=== PATIENT | female | born 1955 | race Caucasian/White ===

== ENCOUNTER 2022-11-03 13:44 | Outpatient (OUT) | payer MEDICARE, SELFPAY ==
--- NOTE | 2022-11-03 | XR_ITS ---
[address] [address] Patient Name: CHRISTIAN GARCIA MRN: [id number] date: 1955 Sex: F Assigned Patient Location: [facility] Current Patient Location: Accession/Order Number: [id number] Exam Date: 11/03/2022 14:28 Report Date: 11/04/2022 06:32 At the request of: AGUEDA PAGE Procedure: XR foot RT min 3V PROCEDURE: XR foot RT min 3V HISTORY: RIGHT FOOT PAIN COMPARISON: CT right foot 08/20/2022 FINDINGS: BONES:Marked degenerative changes of the tibiotalar joint. Prior mechanical fusion of the talocalcaneal and talonavicular joints. Fusion of talus and medial, middle, and lateral cuneiforms. Mild degenerative changes of the tarsal-metatarsal joints. Screw remnant within the talus. Mild loosening/backing out of the screw within the lateral talocuneiform plate. SOFT TISSUES:No visible soft tissue swelling. EFFUSION:None visible. OTHER: Negative. IMPRESSION: 1. Stable surgical changes and chronic degenerative changes. No appreciable acute abnormality. Electronically authenticated by: VIOLETA CHIU Date: 11/04/2022 06:32
== END 2022-11-03 13:45 | disposition home or self-care (01) ==
LOC: RAD 13:46
PROVIDERS: Visit Provider Podiatrist Foot & Ankle Surgery
DX: M79.671 Pain in right foot (principal); M19.071 Primary osteoarthritis, right ankle and foot; Z98.890 Other specified postprocedural states
CPT/HCPCS: 73630

== ENCOUNTER 2023-11-01 09:38 | Outpatient (OUT) | payer MEDICARE, OTHER, SELFPAY ==
--- NOTE | 2023-11-01 | XR_ITS ---
[address] [address] Patient Name: CHRISTIAN GARCIA MRN: [id number] date: 1955 Sex: F Assigned Patient Location: Current Patient Location: Accession/Order Number: [id number] Exam Date: 11/01/2023 09:45 Report Date: 11/02/2023 10:12 At the request of: AGUEDA PAGE Procedure: XR foot RT min 3V PROCEDURE: XR foot RT min 3V, XR ankle RT min 3V HISTORY: RIGHT FOOT PAIN COMPARISON: XR foot right 11/03/2022 FINDINGS: BONES:Mechanical fusion of the midfoot via plate and screws and bone joselito. Mechanical fusion of the talocalcaneal joints via lag screws. Marked joint space narrowing and subchondral sclerosis involving the tibiotalar joint. Mild degenerative changes involving the tarsal-metatarsal joints of the second through 5th digits. SOFT TISSUES:No visible soft tissue swelling. EFFUSION:None visible. OTHER: Negative. XR/XR foot RT min 3V IMPRESSION: 1. Stable surgical changes without evidence of hardware failure or change in alignment. 2. Grossly stable marked degenerative changes of the ankle joint. 3. Pes planus. Electronically authenticated by: VIOLETA CHIU Date: 11/02/2023 10:12
--- NOTE | 2023-11-01 | XR_ITS ---
[address] [address] Patient Name: CHRISTIAN GARCIA MRN: [id number] date: 1955 Sex: F Assigned Patient Location: Current Patient Location: Accession/Order Number: [id number] Exam Date: 11/01/2023 09:45 Report Date: 11/02/2023 10:12 At the request of: AGUEDA PAGE Procedure: XR ankle RT min 3V PROCEDURE: XR foot RT min 3V, XR ankle RT min 3V HISTORY: RIGHT FOOT PAIN COMPARISON: XR foot right 11/03/2022 FINDINGS: BONES:Mechanical fusion of the midfoot via plate and screws and bone joselito. Mechanical fusion of the talocalcaneal joints via lag screws. Marked joint space narrowing and subchondral sclerosis involving the tibiotalar joint. Mild degenerative changes involving the tarsal-metatarsal joints of the second through 5th digits. SOFT TISSUES:No visible soft tissue swelling. EFFUSION:None visible. OTHER: Negative. XR/XR ankle RT min 3V IMPRESSION: 1. Stable surgical changes without evidence of hardware failure or change in alignment. 2. Grossly stable marked degenerative changes of the ankle joint. 3. Pes planus. Electronically authenticated by: VIOLETA CHIU Date: 11/02/2023 10:12
== END 2023-11-01 09:39 | disposition home or self-care (01) ==
LOC: EC 09:39
PROVIDERS: Visit Provider Podiatrist Foot & Ankle Surgery
DX: M19.071 Primary osteoarthritis, right ankle and foot (principal); Z98.890 Other specified postprocedural states; M21.41 Flat foot [pes planus] (acquired), right foot
CPT/HCPCS: 73610; 73630

== ENCOUNTER 2024-10-05 07:44 | Outpatient (OUT) | payer MEDICARE, OTHER, SELFPAY ==
--- OUTSIDE RECORDS SUMMARY | 2023-11-01 05:45 | XMS_ITS ---
Author Organization The [facility] in [place] Address [address] [place] [address] Care Team Providers Care Blowing Weasand Name Role Phone Ronn Marquez DO Primary Care Provider Aftab Light Unavailable [phone] Allergies No Known Allergies Results Component Value Reference Range Notes XR Ankle RT (3 views) * (161 ) Reviewed date:01/26/2024 01:15:25 PM Interpretation: Performing Lab: Notes/Report: XR Foot RT (3 views) * Reviewed date:01/26/2024 01:15:53 PM Interpretation: Performing Lab: Notes/Report: Reason For Referral Reason Right Mellisa Brace Diagnosis 1 Primary osteoarthrit is, right ankle and foot (M19.071) Diagnosis 2 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) Referral Organization [facility] [place] (PODIATRY) Referring Provider First Name Aftab Referring Provider Last Name Greg Referring Provider Speciality Podiatry Referred Provider [facility], [facility] Referred Provider Specialty Other suppli er Referral Priority Routine REASON FOR VISIT R foot pain Medications Medication SIG (Take, Route, Frequency, Duration) Notes Start Date End Date Status Cyclobenzaprine HCl 10 MG Oral for 7 Days Not-Taking Meloxicam 15 MG TAKE 1 TABLET BY TIERA EVERY DAY NEEDED for pain with food Oral for 90 Days Active ZyrTEC Allergy 10 MG 1 capsule Orally On ce a day Active Singulair 10 MG 1 tablet Orally Once a day Active Social History Tobacco Use: Social History Observation Description Date Details (start date - stop date) Never Smoker NA - NA Tobacco Use/Smoking Question Answer Notes Patient is a nonsmoker Vital Signs Weight 142 lbs 11/01/2023 Height 70 in 11/01/2023 Temperature 97.2 degrees Fahrenheit 11/01/19 24 Heart Rate 76 /min 11/01/2023 BMI 20.37 kg/m2 11/01/2023 Encounters Encounter Location Date Provider Diagnosis [facility] (PODIATRY) [address] [place] [address] [place] [address] 11/01/2023 Aftab Garza Primary osteoarthritis, right ankle and foot M19.071 ; Idiopathic aseptic necrosis of right ankle M87.071 and Other specified disorders of bone, unspecified site M89.8X9 Assessments Encounter Date Diagnosis (ICD Code) Assessment Notes Treatment Notes Treatment Clinical Notes Section Notes 11/01/2023 Primary osteoarthritis, right ankle and foot (ICD-10 - M19.071) The patient is a pleasant 68-year-old female who presents for reevaluation of persistent right ankle pain.The patient underwent triple fusion in 2012 and has developed increasing right ankle pain in recent years. Imaging is consistent with avascular necrosis and collapse of the talus with subsequent severe tibiotalar arthritis.She has tried gtzr-uhb-itemkiw bracing which provided limited relief in symptoms.She takes meloxicam regularly and states it does provide some relief.We had discussed ankle fusion previously, however the patient would like to hold off on surgery for now.I recommend custom bracing to provide pain relief.The patient should continue meloxicam and may take Tylenol additionally. RICE therapy encouraged.Follo w-up with Dr. Garza in 3 to 4 months, sooner if any issues arise. No additional x-rays are necessary at that time. I recommend a custom Mellisa brace for the right ankle.Diagnosis: Right ankle arthritis, right talus avascular necrosisThe brace will limit range of motion, therefore providing pain relief.Duration of need: Lifetime 11/01/2023 Idiopathic aseptic necrosis of right ankle (ICD-10 - M87.071) 11/01/2023 Other specified disorders of bone, unspecified site (ICD-10 - M89.8X9) Plan Of Treatment Treatment Notes Assessment Notes Primary osteoarthritis, righ t ankle and foot The patient is a pleasant 68-year-old female who presents for reevaluation of persistent right ankle pain.The patient underwent triple fusion in 2012 and has developed increasing right ankle pain in recent years. Imaging is consistent with avascular necrosis and collapse of the talus with subsequent severe tibiotalar arthritis.She has tried lgdp-ury-tedllqm bracing which provided limited relief in symptoms.She takes meloxicam regularly and states it does provide some relief.We had discussed ankle fusion previously, however the patient would like to hold off on surgery for now.I recommend custom bracing to provide pain relief.The patient should continue meloxicam and may take Tylenol additionally. RICE therapy encouraged.Follow-up with Dr. Garza in 3 to 4 months, sooner if any issues arise. No additional x-rays are necessary at that time. I recommend a custom Mellisa brace for the right ankle.Diagnosis: Right ankle arthritis, right talus avascular necrosisThe brace will limit range of motion, therefore providing pain relief.Duration of need: Lifetime Referrals Referral Date Details 11/02/2023 11/02/2023, [facility] [employer] [facility] Progress Notes * JOSECamilaDOB:1955 (68 yo F)Acc No.[id number]:11/01/2023 Follow Up Patient: Camila SAEZ Provider: Omar Garza DPM, MS :1955 A ge:68 Y S ex:Female Date:11/01/2023 Address:[address] [place], [place] [id number] Pcp:Ronn Marquez, DO Check In:09:34 AM ESTCheck O ut:10:22 AM EST Subjective: * Chief Complaints: * R foot pain * HPI: G eneral: Patient has history of right ankle surgery. Was last seen last October. Pain is different and is in different places depending on the day. Has burning, throbbing pain, does worsen at night to where she uses biofreeze or wrap with ice wrap. Doesn't matter if getting up in am or up on feet all day. Taking meloxicam daily at lunchtime to help. States feels better while in motion. * ROS: G eneral/Constitutional: Chills d enies. F ever d enies. W eight gain?denies. W eight loss d enies. S kin: Skin Ulcers d enies. S kin lesion(s) d enies. ? C ardiovascular: Difficulty breathing on exertion d enies. L eg cramps?denies. E nate d enies. C hest pain d enies. R espiratory: Difficulty breathing d enies. D yspnea d enies.?Cough d enies. G astrointestinal: Diarrhea d enies. N ausea d enies. V omiting?denies. M usculoskeletal: Bone/Joint Symptoms d enies. C half-way Pain d enies.?Leg cramps d enies. N eurologic: Numbness d enies. T ingling d enies . G ait abnormality d enies. ? H ematology: Anemia D enies. E asy bruising d enies. ? A ll Other Systems: Review of Systems (ROS) S ee HPI for details,All others negative except those mentioned in HPI. 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 * Social History: T obacco Use: T obacco Use/Smoking P atient is a n onsmoker * Medications: T akingMeloxicam 15 MG Tablet TAKE 1 TABLET BY MOUTH EVERY DAY NEEDED for pain with food Oral Singulair(Montelukast Sodium) 10 MG Tablet 1 tablet Orally Once a day ZyrTEC Allergy(Cetirizine HCl) 10 MG Capsule 1 capsule Orally Once a day Taking Meloxicam 15 MG Tablet TAKE 1 TABLET BY MOUTH EVERY DAY NEEDED for pain with food Oral Taking Singulair(Montelukast Sodium) 10 MG Tablet 1 tablet Orally Once a day Taking ZyrTEC Allergy(Cetirizine HCl) 10 MG Capsule 1 capsule Orally Once a day Not-Taking/PRNCyclobenzaprine HCl 10 MG Tablet Oral Medication List reviewed and reconciled with the patientNot-Taking/PRN Cyclobenzaprine HCl 10 MG Tablet Oral Medication List reviewed and reconciled with the patient * Allergies: N .K.D.A.no[Allergies Verified] Objective: * Vitals: W t:142lbs, Ht: 70 in, Temp:97.2F, HR:76/min, BMI:20.37Index, Pain scale:61-10, Ht-cm: 177.8 cm, Wt-k.41 kg. * Examination: P odiatry Examination: SKIN: s kin intact, n o sign of infection. MUSCULOSKELETAL: F oot and ankle are rectus in stance Pain on palpation anterior ankle and sinus tarsi No ROM from the hindfoot Less than 5 degrees ROM from the ankle with crepitus throughout ROM Painful bony prominence plantar foot at the cuboid.? NEUROLOGICAL: L ight touch sensation is intact in all nerve distributions, Negative Tinel sign. VASCULAR: P alpable pedal pulses, No swelling, No calf pain on squeeze. A t theX-ray right foot and ankle obtained in the office today and reviewed: Previous triple fusion. Hardware appears stable. Collapse of the talar dome with severe arthritic changes noted to the tibiotalar joint, consistent with avascular necrosis of the talus. Assessment: * Assessment: 1. P rimary osteoarthritis, right ankle and foot - M19.071 (Primary) 2 . I diopathic aseptic necrosis of right ankle - M87.071 3 . O ther specified disorders of bone, unspecified site - M89.8X9 Plan: * Treatment: 2. I diopathic aseptic necrosis of right ankle Referral To:[facility] Other supplier Reason:Right Mellisa Brace * Procedure Codes: * * Sign off status: Completed Visit Status: C HK (Check Out) true * Provider: Omar Garza DPM, MS Date: 11/01/2023 Generated for Marely farah/Chema/Patriciaitting on: 10/05/2024 07:49 AM EDT History and Physical Notes * HPI (History of Present Illness) Category Sub-Category Detail Notes Category Not es General Patient has his tory of right ankle surgery. Was last seen last October. Pain is different and is in different places depending on the day. Has burning, throbbing pain, does worsen at night to where she uses biofreeze or wrap with ice wrap. Doesn't matter if getting up in am or up on feet all day. Taking meloxicam daily at lunchtime to help. States feels better while in motion. Examination Category Sub-Category Detail Notes Category Not es Podiatry Examination SKIN: skin intact, no sign of infection At theX-ray right foot and ankle obtained in the office today and reviewed: Previous triple fusion. Hardware appears stable. Collapse of the talar dome with severe arthritic changes noted to the tibiotalar joint, consistent with avascular necrosis of the talus MUSCULOSKELETAL: Foot and ankle are r ectus in stance Pain on palpation anterior ankle and sinus tarsi No ROM from the hindfoot Less than 5 degrees ROM from the ankle with crepitus throughout ROM Painful bony prominence plantar foot at the cuboid NEUROLOGICAL: Light touch sensatio n is intact in all nerve distributions, Negative Tinel sign VASCULAR: Palpable pedal pulse s, No swelling, No calf pain on squeeze Consultation Request Notes Referral Date Referring Provider Referred Provider Not es 11/02/2023 Aftab Garza [facility]
--- OUTSIDE RECORDS SUMMARY | 2024-03-14 04:15 | XMS_ITS ---
Author Organization [facility] in [place] Address [address] [place] [address] Care Team Providers Care Truck Dispatcher Name Role Phone Ronn Marquez DO Primary Care Provider Aftab Light [phone] REASON FOR VISIT 4 month f/u Medications Medication SIG (Take, Route, Frequency, Duration) Notes Start Date End Date Status Cyclobenzaprine HCl 10 MG Oral for 7 Days Unknown Meloxicam 15 MG 1 tablet Orally Once a day for 90 days 03/14/2024 Active Meloxicam 15 MG TAKE 1 TABLET BY TIERA TH EVERY DAY NEEDED for pain with food Oral for 90 Days Active Singulair 10 MG 1 tablet Orally Once a day Active ZyrTEC Allergy 10 MG 1 capsule Orally On ce a day Active Social History Tobacco Use: Social History Observation Description Date Details (start date - stop date) Never Smoker NA - NA Tobacco Use/Smoking Question Answer Notes Patient is a nonsmoker Vital Signs Height 70 in 03/14/2024 Temperature 97.0 degrees Fahrenheit 03/14/20 24 Heart Rate 89 /min 03/14/2024 Oximetry 99 % 03/14/2024 Encounters Encounter Location Date Provider Diagnosis [facility] (PODIATRY) [address] [place] [address] [place] [address] 03/14/2024 Aftab Garza Idiopathic aseptic necrosis of right ankle M87.071 ; Other specified disorders of bone, unspecified site M89.8X9 and Pain due to internal orthopedic prosthetic devices, implants and grafts, initial encounter T84.84XA Assessments Encounter Date Diagnosis (ICD Code) Assessment Notes Treatment Notes Treatment Clinical Notes Section Notes 03/14/2024 Idiopathic aseptic necrosis of right ankle (ICD-10 - M87.071) Patient seen and evaluated. Patient education provided. 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 She requested a refill of meloxicam which was provided today and she related that her primary care physician and is aware of her being on this medication. I believe that it is likely that some days she may require surgical intervention but given that she is doing well currently I recommend to continue nonsurgical care and she will follow-up in 3 months with weightbearing ankle x-rays 03/14/2024 Other specified disorders of bone, unspecified site (ICD-10 - M89.8X9) 03/14/2024 Pain due to internal orthopedic prosthetic devices, implants and grafts, initial encounter (ICD-10 - T84.84XA) Plan Of Treatment Medication Medication Name Sig Start Date Stop Date Notes Meloxicam 15 MG 1 tablet Orally Once a day for 90 days Treatment Notes Assessment Notes Idiopathic aseptic necrosis of right ankle Patient seen and evaluated. Patient education provided. 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 She requested a refill of meloxicam which was provided today and she related that her primary care physician and is aware of her being on this medication. I believe that it is likely that some days she may require surgical intervention but given that she is doing well currently I recommend to continue nonsurgical care and she will follow-up in 3 months with weightbearing ankle x-rays Progress Notes * Camila BREENDOB:1955 (68 yo F)Acc No.[id number]:03/14/2024 Follow Up Patient: oJyce MARIE Camila Provider: Omar Garza DPM, MS :1955 A ge:68 Y S ex:Female Date:03/14/2024 Address:[address] [place] [address], [id number] Pcp:Ronn Marquez, DO Check In:08:08 AM ESTCheck O ut:08:38 AM EST Subjective: * Chief Complaints: * 4 month f/u * HPI: G eneral: Patient returns to office today for 4 month f/u. Patient is doing very well with no pain today, just stiffness to the right ankle. She is currently wearing an ASO brace which she states help stabalize her ankle. She is wearing a night splint during her sleep, which she states has helped alleviate stiffness in the morning. Overall she is happy with her progress. She states she would like a refill on her meloxicam. 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 * Examination: P odiatry Examination: SKIN: s kin intact, n o sign of infection. MUSCULOSKELETAL: L ess than 10 degrees range of motion from the ankle joint and no range of motion from the subtalar joint. No pain on palpation negative anterior drawer. NEUROLOGICAL: l ight touch sensation intact, n egative tinel's sign. VASCULAR: P edal pulses palpable, C apillaryrefill is brisk to toe. Assessment: * Assessment: 1. 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 O ther specified disorders of bone, unspecified site - M89.8X9 3 . P ain due to internal orthopedic prosthetic devices, implants and grafts, initial encounter - T84.84XA ? Plan: * Treatment: * Procedure Codes: * * Sign off status: Completed Visit Status: C HK (Check Out) true * Provider: Omar Garza DPM, MS Date: 05/14/2023 Generated for Marely farah/Chema/Marksmitting on: 0 10/05/2024 07:48 AM EDT History and Physical Notes * HPI (History of Present Illness) Category Sub-Category Detail Notes Category Not es General Patient returns to office today for 4 month f/u. Patient is doing very well with no pain today, just stiffness to the right ankle. She is currently wearing an ASO brace which she states help stabalize her ankle. She is wearing a night splint during her sleep, which she states has helped alleviate stiffness in the morning. Overall she is happy with her progress. She states she would like a refill on her meloxicam. Examination Category Sub-Category Detail Notes Category Not es Podiatry Examination SKIN: skin intact, no sign of infection MUSCULOSKELETAL: Less than 10 degrees range of motion from the ankle joint and no range of motion from the subtalar joint. No pain on palpation negative anterior drawer NEUROLOGICAL: light touch sensatio n intact, negative tinel's sign VASCULAR: Pedal pulses palpable, Capillary refill is brisk to toe
--- OUTSIDE RECORDS SUMMARY | 2024-10-05 07:49 | XMS_ITS | Patient Health Record ---
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 Name Role Phone Ronn Marquez DO Primary Care Provider Agueda Light [phone] Allergies No Known Allergies Results Component Value Reference Range Notes XR Ankle RT (3 views) * (161 ) Reviewed date:01/26/2024 01:15:25 PM Interpretation: Performing Lab: Notes/Report: XR Foot RT (3 views) * Reviewed date:01/26/2024 01:15:53 PM Interpretation: Performing Lab: Notes/Report: XR foot RT min 3V (Not yet r eviewed by provider) Interpretation: Performing Lab: Notes/Report: Source Facility: [place] [address] XRay Report Signed Patient: Camila Breen MR#: [id number] : 1955 Acct:[id number] Age/Sex: 68 / F ADM Date: 11/01/23 Loc: EC Attending Dr: Agueda Garza D.P.M. Ordering Physician: Agueda Garza D.P.M. Date of Service: 11/01/23 Procedure(s): XR foot RT min 3V Accession Number(s): [id number] cc: Agueda Garza D.P.M.; Physician,Non-Staff [place] [address] Patient Name: CAMILA BREEN MRN: [id number]:[id number] date: 1955 Sex: F Assigned Patient Location: Current Patient Location: Accession/Order Number: [id number] Exam Date: 11/01/2023 09:45 Report Date: 11/02/2023 10:12 At the request of: AGUEDA GARZA Procedure: XR foot RT min 3V PROCEDURE: XR foot RT min 3V, XR ankle RT min 3V HISTORY: RIGHT FOOT PAIN COMPARISON: XR foot right 11/03/2022 FINDINGS: BONES:Mechanical fusion of the midfoot via plate and screws and bone joselito. Mechanical fusion of the talocalcaneal joints via lag screws. Marked joint space narrowing and subchondral sclerosis involving the tibiotalar joint. Mild degenerative changes involving the tarsal-metatarsal joints of the second through 5th digits. SOFT TISSUES:No visible soft tissue swelling. EFFUSION:None visible. OTHER: Negative. XR/XR foot RT min 3V IMPRESSION: 1. Stable surgical changes without evidence of hardware failure or change in alignment. 2. Grossly stable marked degenerative changes of the ankle joint. 3. Pes planus. Electronically authenticated by: CAMPOS MARY Date: 11/02/2023 10:12 Dictated By: Campos Mary M.D. Signed By: 11/02/23 1014 DD/ 1012 TD/TT: Return To Vendor: [place] [address] XRay Report Signed Patient: Nicky Breen sa MR#: [id number] : 1955 Acct:[id number] Age/Sex: 68 / F ADM Date: 11/01/23 Loc: EC Attending Dr: Agueda Garza D.P.M. Ordering Physician: Agueda Garza D.P.M. Date of Service: 11/01/23 Procedure(s): XR foot RT min 3V Accession Number(s): [id number] cc: Agueda Garza D.P.M.; Physician,Non-Staff [place] [id number] Patient Name: CAMILA BREEN MRN: [id number]:[id number] date: 1955 Sex: F Assigned Patient Location: Current Patient Location: Accession/Order Numb er: [id number] Exam Date: 11/01/2023 09:45 Report Date: 11/02/2023 10:12 At the request of: AGUEDA GARZA Procedure: XR foot RT min 3V PROCEDURE: XR foot R T min 3V, XR ankle RT min 3V HISTORY: RIGHT FOOT PAIN COMPARISON: XR foot right 11/03/2022 FINDINGS: BONES:Mechanical fus ion of the midfoot via plate and screws and bone joselito. Mechanical fusion of the talocalcaneal joints via lag screws. Marked joint space narrowing and subchondral sclerosis involving the tibiotalar joint. Mild degenerative changes involving the tarsal-metatarsal joints of the second through 5th digits. SOFT TISSUES:No visi ble soft tissue swelling. EFFUSION:None visible. OTHER: Negative. X R/XR foot RT min 3V IMPRESSION: 1. Stable surgical c hanges without evidence of hardware failure or change in alignment. 2. Grossly stable ma rked degenerative changes of the ankle joint. 3. Pes planus. Electronically authe nticated by: CAMPOS MARY Date: 11/02/2023 10:12 Dictated By: Campos Mary M.D. Signed By: 11/02/23 1014 DD/ 1012 TD/TT: Return To Vendor: XR ankle RT min 3V (Not yet reviewed by provider) Interpretation: Performing Lab: Notes/Report: Source Facility: [place] [address] [place] [address] XRay Report Signed Patient: Camila Breen MR#: [id number] : 1955 Acct:[id number] Age/Sex: 68 / F ADM Date: 11/01/23 Loc: EC Attending Dr: Agueda Graza D.P.M. Ordering Physician: Agueda Garza D.P.M. Date of Service: 11/01/23 Procedure(s): XR ankle RT min 3V Accession Number(s): [id number] cc: Agueda Garza D.P.M.; Physician,Non-Staff Jaya [address] [address] Patient Name: CAMILA BREEN MRN: [facility]:[id number] date: 1955 Sex: F Assigned Patient Location: Current Patient Location: Accession/Order Number: [id number] Exam Date: 11/01/2023 09:45 Report Date: 11/02/2023 10:12 At the request of: AGUEDA GARZA Procedure: XR ankle RT min 3V PROCEDURE: XR foot RT min 3V, XR ankle RT min 3V HISTORY: RIGHT FOOT PAIN COMPARISON: XR foot right 11/03/2022 FINDINGS: BONES:Mechanical fusion of the midfoot via plate and screws and bone joselito. Mechanical fusion of the talocalcaneal joints via lag screws. Marked joint space narrowing and subchondral sclerosis involving the tibiotalar joint. Mild degenerative changes involving the tarsal-metatarsal joints of the second through 5th digits. SOFT TISSUES:No visible soft tissue swelling. EFFUSION:None visible. OTHER: Negative. XR/XR ankle RT min 3V IMPRESSION: 1. Stable surgical changes without evidence of hardware failure or change in alignment. 2. Grossly stable marked degenerative changes of the ankle joint. 3. Pes planus. Electronically authenticated by: CAMPOS MARY Date: 11/02/2023 10:12 Dictated By: Campos Mary M.D. Signed By: 11/02/23 1014 DD/ 1012 TD/TT: Return To Vendor: [place] [address] XRay Report Signed Patient: Nicky Breen sa MR#: [id number] : 1955 Acct:[id number] Age/Sex: 68 / F ADM Date: 11/01/23 Loc: EC Attending Dr: Agueda Garza D.P.M. Ordering Physician: Agueda Garza D.P.M. Date of Service: 11/01/23 Procedure(s): XR ankle RT min 3V Accession Number(s): [id number] cc: Agueda Garza D.P.M.; Physician,Non-Staff M.D. The [address] [address] Patient Name: CAMILA BREEN MRN: [facility]:[id number] date: 1955 Sex: F Assigned Patient Location: Current Patient Location: Accession/Order Numb er: [id number] Exam Date: 11/01/2023 09:45 Report Date: 11/02/2023 10:12 At the request of: AGUEDA GARZA Procedure: XR ankle RT min 3V PROCEDURE: XR foot R T min 3V, XR ankle RT min 3V HISTORY: RIGHT FOOT PAIN COMPARISON: XR foot right 11/03/2022 FINDINGS: BONES:Mechanical fus ion of the midfoot via plate and screws and bone joselito. Mechanical fusion of the talocalcaneal joints via lag screws. Marked joint space narrowing and subchondral sclerosis involving the tibiotalar joint. Mild degenerative changes involving the tarsal-metatarsal joints of the second through 5th digits. SOFT TISSUES:No visi ble soft tissue swelling. EFFUSION:None visible. OTHER: Negative. X R/XR ankle RT min 3V IMPRESSION: 1. Stable surgical c hanges without evidence of hardware failure or change in alignment. 2. Grossly stable ma rked degenerative changes of the ankle joint. 3. Pes planus. Electronically authe nticated by: CAMPOS MARY Date: 11/02/2023 10:12 Dictated By: Campos Mary M.D. 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 Vital Signs Heart Rate 89 /min 03/14/2024 Temperature 97.0 degrees Fahrenheit 03/14/2024 Oximetry 99 % 03/14/2024 Height 70 in 03/14/2024 Weight 142 lbs 11/01/2023 BMI 20.37 kg/m2 11/01/2023 Encounters Encounter Location Date Provider Diagnosis [facility] ([facility]) [address] [place] [address] [place] [address] 11/01/2023 Agueda Garza Primary osteoarthritis, right ankle and foot M19.071 ; Idiopathic aseptic necrosis of right ankle M87.071 and Other specified disorders of bone, unspecified site M89.8X9 [facility] ([facility]) [address] [place] [address] [place] [address] 03/14/2024 Agueda Garza Idiopathic aseptic necrosis of right ankle [...] with subsequent severe tibiotalar arthritis.She has tried qsvj-rgk-[id number] bracing which provided limited relief in symptoms.She takes meloxicam regularly and states it does provide some relief.We had discussed ankle fusion previously, however the patient would like to hold off on surgery for now.I recommend custom bracing to provide pain relief.The patient should continue meloxicam and may take Tylenol additionally. RICE therapy encouraged.Follow -up with Dr. Garza in 3 to 4 months, sooner if any issues arise. No additional x-rays are necessary at that time. I recommend a custom Mellisa brace for the right ankle.Diagnosis: Right ankle arthritis, right talus avascular necrosisThe brace will limit range of motion, therefore providing pain relief.Duration of need: Lifetime 11/01/2023 Idiopathic aseptic necrosis of right ankle (ICD-10 - M87.071) 03/14/2024 Idiopathic aseptic necrosis of right ankle [...] and grafts, initial encounter (ICD-10 - T84.84XA) 11/01/2023 Other specified disorders of bone, unspecified site (ICD-10 - M89.8X9) Plan Of Treatment Pending Test Test Name Order Date XR ankle RT min 3V 11/02/2023 XR foot RT min 3V 11/02/2023 Insurance Providers Payer Name Payer Address Payer Phone Subscriber Number Group Number Insured Name Patient Relationship to Insured Coverage Start Date Coverage End Date MEDICARE RAILROAD [address] [address] [employer] [id number] [phone] [id number] Camila Breen Self - patient is the insured 0 [employer] [place] [address] [employer] [facility] 8 MEDICARE SUPP CLMS DEPT [place] [employer] [phone] [id number] Camila Breen Self - patient is the insured 4 Medical (General) History Medical History History ICD Code Cutaneous symptom of rheumatic disease M 79.0 Exostosis of bone of ankle M89.8X7 Pain due to internal orthopedic prosthet ic device, initial encounter T84.84XA Acute ankle pain, right M25.571 Abnormal movement in bone M89.9 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
--- OUTSIDE RECORDS SUMMARY | 2024-10-05 07:50 | XMS_ITS | CCD ---
Author Organization [facility] Care Team Providers Care Donor Recruiter Name Role Phone WILIAM JONES Referring Unavailable RONN MARQUEZ Primary Care Unavailable WILIAM JONES Referring Unavailable RONN MARQUEZ Primary Care Unavailable WILIAM JONES Referring Unavailable RONN MARQUEZ Primary Care Unavailable WILIAM JONES Referring Unavailable RONN MARQUEZ Primary Care Unavailable WILIAM JONES Referring Unavailable RONN MARQUEZ Primary Care Unavailable AGUEDA PAGE Admitting Unavailable AGUEDA PAGE Attending Unavailable JESSICA ULRICH V Consulting Unavailable AGUEDA PAGE Consulting Unavailable Ronn Marquez DO Primary Care Provider Angelique Bowman Unavailable DO Ronn Marquez Primary Care Provider DO Derrick Kenny Attending Provider RONN MARQUEZ Primary Care Physician [phone] Sarah Rivera Unavailable Unavailable DO Ronn Marquez Primary Care Provider [phone] DO Derrick Kenny Attending Provider [phone] Efrain Munguia Primary Care Physician Link, Efrain Scott Attending Unavailable Link, Efrain Scott Attending Unavailable Link, Efrain Scott Attending Unavailable Link, Efrain Scott Attending Unavailable Link, Efrain Scott Admitting Unavailable Link, Efrain Scott Attending Unavailable Ronn Marquez DO Unavailable Efrain Munguia MD Primary Care Provider Snuday Bhakta Attending Unavailable Bhakta, Sunday Latif Referring Unavailable Bhakta, Sunday Latif Admitting Unavailable Link, Efrain Scott Admitting Unavailable Link, Efrain Scott Attending Unavailable Bhakta, Sunday T Referring Unavailable Bhakta, Sunday T Admitting Unavailable Bhakta, Sunday T Attending Unavailable Bhakta, Sunday T Attending Unavailable Bhakta, Sunday T Referring Unavailable Bhakta, Sunday T Admitting Unavailable Bhakta, Sunday T Admitting Unavailable Bhakta, Sunday T Attending Unavailable Bhakta, Sunday T Referring Unavailable Ronn Marquez DO Unavailable DO Efrain Munguia Attending Unavailable Ronn Marquez DO Primary Care Provider Zoya LATIF, Derrick Attending Provider Zoya, Derrick Attending Unavailable Ronn Marquez Primary Care Unavailable Visci, Derrick Admitting Unavailable Alma, Ronn Primary Care Unavailable Visci, Derrick Admitting Unavailable Visci, Derrick Attending Unavailable PLEASNICKABIGAIL Attending Unavailab le BHAKTA, SUNDAY T Referring Unavailable MEDVES, RONNA Jones Attending Unavailable BHAKTA, SUNDAY T Referring Unavailable HISEY, KVNG Attending Unavailable BHAKTA, SUNDAY T Referring Unavailable HISEY, KVNG Attending Unavailable BHAKTA, SUNDAY T Referring Unavailable MEDVES, RONNA Jones Attending Unavailable BHAKTA, SUNDAY T Referring Unavailable BHAKTA, SUNDAY T Referring Unavailable BHAKTA, SUNDAY Latif Attending Unavailable HISEY, KVNG Attending Unavailable BHAKTA, SUNDAY T Referring Unavailable HISEY, KVNG Attending Unavailable BHAKTA, SUNDAY T Referring Unavailable EDOUARDSHAHID Attending Unavailable BHAKTA, SUNDAY T Referring Unavailable HISEY, KVNG Attending Unavailable BHAKTA, SUNDAY T Referring Unavailable MEDVES, RONNA Jones Attending Unavailable BHAKTA, SUNDAY T Referring Unavailable HISEY, KVNG Attending Unavailable BHAKTA, SUNDAY T Referring Unavailable HISEY, KVNG Attending Unavailable BHAKTA, SUNDAY T Referring Unavailable BHAKTA, SUNDAY T Referring Unavailable BHAKTA, SUNDAY T Attending Unavailable BHAKTA, SUNDAY T Referring Unavailable BHAKTA, SUNDAY T Referring Unavailable BHAKTA, SUNDAY Latif Attending Unavailable BHAKTA, SUNDAY Latif Attending Unavailable HISEY, KVNG Attending Unavailable BHAKTA, SUNDAY T Referring Unavailable HISEY, KVNG Attending Unavailable BHAKTA, SUNDAY T Referring Unavailable MEDVES, RONNA Jones Attending Unavailable BHAKTA, SUNDAY T Referring Unavailable Allergies Allergy Classification Reported Allergen(s) Allergy Type Date of Onset Reaction(s) Facility (20 sources) House dust mite Allergy to substance 07-01-2023 [facility] (20 sources) Pollen Allergy to substance 07-01-2023 [facility] Medications Current Medications Medication Drug Class(es) Dates Sig (Normalized) Sig (Original) acetaminophen 325 mg / oxyCODONE hydrochloride 5 mg oral tablet (2 sources) Opioid Agonist Start: 06-04-2024 End: 06-11-2024 take 1-2 tablets by mouth every four hours as needed for pain Percocet 5 mg-325 mg oral tablet See Instructions, 50 tab(s), Refill(s) 0, other reason (Rx), Take one to two oral every 4 hours as needed for surgical pain. Start Date: 06/06/24 Status: Ordered [id number] 200 actuat albuterol 0.09 mg/actuat metered dose inhaler (2 sources) beta2-Adrenergic Agonist Start: 01-04-2024 take 2 puff(s) by inhalation every six hours as needed Albuterol Sulfate 90 mcg/actuation HFA aerosol inhaler Active 2 PUFF INHALATION Every 6 hours January 04, 2024 12:00am [employer] puffs as needed Inhalation every 6 hrs; Note: Source Status: Taking; Provider: Gracie Merino ( ) take 2 puff(s) by in halation every six hours as needed ProAir HFA 108 (90 Base) MCG/ACT 2 puffs as needed Inhalation every 6 hrs Active amoxicillin 875 mg / clavulanate 125 mg oral tablet (1 source) Penicillin-class Antibacterial Start: 02-01-2023 take 1 tablet by mouth every twelve hours Amoxicillin-Pot Clavulanate 875-125 MG 1 tablet Orally every 12 hrs for 14 days Jan, Active aspirin 325 mg oral tablet (6 sources) Platelet Aggregation Inhibitor, Nonsteroidal Anti-inflammatory Drug Start: 06-04-2024 End: 07-06-2024 take 1 tablet by mouth once daily aspirin 325 MG EC tablet Indications: Primary osteoarthritis of left hip Take 1 tablet (325 mg) by mouth Daily Start Day after Surgery 30 tablet 06/04/2024 07/04/2024 Active ASPIRIN 81 PO Ta ke by mouth 0 Active Biotin (3 sources) Biotin Active Biotin 3 MG TABS Take by mouth 0 Active calcium carbonate 1500 mg oral tablet (2 sources) take 1 tablet by mouth every twelve hours Calcium 600 MG 1 tablet with meals Orally Twice a day Active Calcium Carbonate-Vit D-Min (CALCIUM 1200 PO) (20 sources) Calcium Carbonate-Vit D-Min (CALCIUM 1200 PO) Calcium Active cetirizine hydrochloride 10 mg oral tablet (4 sources) Histamine-1 Receptor Antagonist Start: take 1 tablet by mouth once daily Cetirizine 10 mg tablet Active 1 TAB PO Daily January 04, 2024 12:00am [employer] tablet Orally Once a day; Note: Source Status: Taking; Provider: Gracie Merino ( ) take 1 tablet by jim th every twenty-four hours Cetirizine HCl 10 MG 1 tablet Orally Onc e a day Active Cetirizine HCl 1 0 MG CAPS Take by mouth 0 Active cholecalciferol 0.125 mg oral tablet (20 sources) Vitamin D take 1 tablet by mouth once daily cholecalciferol (Vitamin D-3) 125 MCG (5000 UT) tablet Take 5,000 Units by mouth Daily Active cyclobenzaprine hydrochloride 10 mg oral tablet (20 sources) Muscle Relaxant Start: 024 take 1 tablet by mouth three times daily as needed for muscle spasms cyclobenzaprine (Flexeril) 10 MG tablet See Instructions, TAKE 1 TABLET BY MOUTH THREE TIMES DAILY NEEDED for spasm, # 30 tab(s), Refills(s) 1, Pharmacy: [id number], 178, cm, 12/22/23 7:08:00 EDT, Height/Length Dosing, 64.6, kg, 12/22/23 7:08:00 EDT, Weight Dosing 11/24/2023 Active docusate sodium 100 mg oral capsule (2 sources) Start: 025 End: 025 take 1 capsule by mouth twice daily Colace 100 mg Cap 100 mg = 1 cap(s), Oral, BID, # 20 cap(s), Refills(s) 0, other reason (Rx) Start Date: 06/06/24 Status: Ordered glucosamine 500 mg oral tablet (2 sources) take 1 capsule by mouth three times daily Glucosamine 500 MG 1 capsule with a meal Orally Three times a day Active ibuprofen 600 mg oral tablet (2 sources) Nonsteroidal Anti-inflammatory Drug Start: 025 take 600 mg by mouth twice daily ibuprofen 600 mg, Oral, BID, Refills(s) 0, Pain Start Date: 05/25/24 Status: Ordered loratadine 10 mg oral tablet (20 sources) Start: 012 take 1 tablet by mouth once daily loratadine 10 mg Tab 10 mg = 1 tab(s), Oral, Daily, tab(s), Refills(s) 0 Start Date: 05/16/11 Status: Ordered take 1 tablet by mouth once mario y loratadine (Claritin Reditabs) 10 MG disintegrating tablet Take 10 mg by mouth Daily Active Magnesium (20 sources) Magnesium 400 MG capsule Take by mouth Active take 1 tablet by mouth once mario y Magnesium 500 MG 1 tablet with a meal Orally Once a day Active Magnesium 400 MG CAPS Take by mouth 0 Active meloxicam 15 mg oral tablet (20 sources) Nonsteroidal Anti-inflammatory Drug Start: 10-27-2023 meloxicam (Mobic) 15 MG tablet Take 15 mg by mouth 10/27/2023 Active mometasone furoate 0.05 mg/actuat metered dose nasal spray (20 sources) Corticosteroid Start: 01-04-2024 take 2 spray(s) nasal route once daily Mometasone (Nasonex 24hr Allergy) 50 mcg/actuation spray,non-aeroso l Active 2 SPRAY INTRANASAL Daily January 04, 2024 12:00am [employer] sprays in each nostril Nasally Once a day; Note: Source Status: Taking; Refills: 3; Provider: Gracie Jones Start: 04-11-2023 take 2 spray(s) nasa l route once daily mometasone (Nasonex) 50 MCG/ACT nasal spray Administer 2 sprays into each nostril Daily 04/11/2023 Active Mometasone Furoa te (NASONEX NA) by Nasal route 0 Active montelukast 10 mg oral tablet (20 sources) Leukotriene Receptor Antagonist Start: 06-16-2023 End: 04-22-2025 take 1 tablet by mouth once daily montelukast (Singulair) 10 MG tablet Indications: Asthmatic bronchitis without complication, unspecified asthma severity, unspecified whether persistent (CMS/HCC) Take 1 tablet (10 mg) by mouth 1 (one) time each day at the same time 90 tablet 3 04/27/2024 04/22/2025 Active Start: 04-06-2011 Singulair 10 m g, qPM, Refills(s) 0 Start Date: 04/06/11 Status: Ordered take 1 tablet by jim th every twenty-four hours Singulair 10 MG 1 tablet Orally Once a day Active take 1 tablet by jim th twice daily montelukast (SINGULAIR) 10 MG tablet Take 10 mg by mouth 2 times daily 0 Active Multiple Vitamin (multivitamin) tablet (20 sources) take 1 tablet by mouth once daily Multiple Vitamin (multivitamin) tablet Take 1 tablet by mouth Daily Active Multiple Vitamins-Minerals (MULTIVITAMIN ADULTS PO) (1 source) Multiple Vitamin s-Minerals (MULTIVITAMIN ADULTS PO) Take by mouth 0 Active Multivitamins and Minerals (7 sources) Start: 05-16-2011 take 1 tablet by mouth once daily Multivitamins and Minerals 1 tab, Oral, Daily, Refill(s) 0, Prophylaxis Start Date: 05/16/11 Status: Ordered Start: 05-16-2011 Multivitamins and Minerals Refill(s) 0 Start Date: 05/16/11 Status: Ordered Naproxen (2 sources) Nonsteroidal Anti-inflammatory Drug Start: 04-06-2011 take 1 tablet by mouth twice daily as needed for pain naproxen 440 mg, Oral, BID, PRN PRN as needed for pain, tab(s), Refills(s) 0 Start Date: 04/06/11 Status: Ordered take 1 tablet by jim th twice daily at mealtime naproxen (NAPROSYN) 500 MG tablet Take 5 00 mg by mouth 2 times daily (with meals) 0 Active Nasonex 50 MCG/ACT (2 sources) take 2 spray(s) nasa l route once daily Nasonex 50 MCG/ACT 2 sprays in each nostril Nasally Once a day for 90 days Active take 2 spray(s) nasal route once daily Nasonex 50 MCG/ACT 2 sprays in each nostril Nasally Once a day Active Potassimin (2 sources) Potassimin Activ e predniSONE 20 mg oral tablet (1 source) Start: 01-18-2024 take 2 tablets by mouth twice daily predniSONE 20 mg Tab 40 mg = 2 tab(s), Oral, BID, # 14 tab(s), Refills(s) 0, Pharmacy: [id number], 178, cm, 12/22/23 7:08:00 EDT, Height/Length Dosing, 64.6, kg, 12/22/23 7:08:00 EDT, Weight Dosing Start Date: 01/18/24 Status: Ordered ProAir HFA 108 (90 Base) MCG/ACT (1 source) take 2 puff(s) by inhalation every six hours as needed ProAir HFA 108 (90 Base) MCG/ACT 2 puffs as needed Inhalation every 6 hrs Active vitamin b12 0.1 mg oral tablet (20 sources) Vitamin B12 Start: 11-24-2023 cyanocobalamin (Vitamin B-12) 100 MCG tablet Refills(s) 0 11/24/2023 Active Start: 11-24-2023 Vitamin B12 Or al, Daily, Refills(s) 0, Prophylaxis Start Date: 11/24/23 Status: Ordered Start: 11-24-2023 Vitamin B12 Re fills(s) 0 Start Date: 11/24/23 Status: Ordered Vitamin D (7 sources) Start: 05-16-2011 take 1 mL by mouth once Vitami n D Oral, mL, Refills(s) 0 Start Date: 05/16/11 Status: Ordered Vitamin D3 (2 sources) Vitamin D3 Activ e Problems Active Problems Problem Classification Problem Date Documented Da te Episodic/Chronic Asthma (20 sources) Asthma; Translations: [Unspecified asthma, uncomplicated] Onset: 01-19-2022 Resolved: 01-19-2022 Chronic Disorders of lipid metabolism (20 sources) Mixed hyperlipidemia; Translations: [Mixed hyperlipidemia] Onset: 06-08-2023 06-08-2023 Chronic Headache; including migraine (20 sources) Migraine; Translations: [Migraine, unspecified, not intractable, without status migrainosus] Onset: 08-06-2010 06-08-2023 Chronic Menopausal disorders (20 sources) Atrophy of vagina; Translations: [Postmenopausal atrophic vaginitis] Onset: 06-08-2023 06-08-2023 Chronic Osteoarthritis (20 sources) Primary osteoarthritis, right ankle and foot; Translations: [Localized, primary osteoarthritis of the ankle and/or foot] Onset: 01-04-2020 Chronic Other aftercare (8 sources) Patient encounter status; Translations: [Aftercare following joint replacement surgery] 2024 Chronic Other bone disease and musculoskeletal deformities (1 source) Other osteonecrosis, right ankle; Translations: [OTHER OSTEONECROSIS RIGHT ANKLE] Onset: 01-08-2020 Chronic Other bone disease and musculoskeletal deformities (20 sources) Segmental and somatic dysfunction; Translations: [Segmental and somatic dysfunction of sacral region] Onset: 10-27-2023 Episodic Other bone disease and musculoskeletal deformities (8 sources) Segmental dysfunction 10-27-2023 Episodic Other bone disease and musculoskeletal deformities (8 sources) Somatic dysfunction of lumbar region 10-27-2023 Episodic Other bone disease and musculoskeletal deformities (8 sources) Somatic dysfunction of pelvic region 10-27-2023 Episodic Other bone disease and musculoskeletal deformities (8 sources) Somatic dysfunction of sacral region 10-27-2023 Episodic Other bone disease and musculoskeletal deformities (8 sources) Somatic dysfunction of upper limb 10-27-2023 Episodic Other bone disease and musculoskeletal deformities (7 sources) Somatic dysfunction of lower limb 11-24-2023 Episodic Other injuries and conditions due to external causes (9 sources) Fracture of bone 07-13-2013 Episodic Comment on above: right foot Other non-traumatic joint disorders (20 sources) Arthropathy; Translations: [Arthropathy, unspecified] Onset: 08-06-2010 06-08-2023 Chronic Other non-traumatic joint disorders (4 sources) Hip pain; Translations: [Pain in left hip] 02-10-2024 Episodic Other non-traumatic joint disorders (2 sources) Pain in left knee; Translations: [Pain in joint, lower leg] 03-26-2024 Episodic Other screening for suspected conditions (not mental disorders or infectious disease) (4 sources) Mammography abnormal; Translations: [Other abnormal and inconclusive findings on diagnostic imaging of breast] Onset: 11-18-2023 Episodic Residual codes; unclassified (3 sources) Patient encounter status; Translations: [Other specified health status] Onset: 10-27-2023 Episodic Residual codes; unclassified (3 sources) Body mass index 20-24 - normal; Translations: [Body mass index (BMI) 20.0-20.9, adult] Onset: 10-27-2023 Episodic Residual codes; unclassified (1 source) History of operative procedure on foot; Translations: [Other specified postprocedural states] 01-04-2024 Episodic Comment on above: 2014 Past or Other Problems Problem Classification Problem Date Documented Da te Episodic/Chronic Other gastrointestinal disorders (20 sources) Constipation; Translations: [Constipation, unspecified] Onset: 06-08-2023 06-08-2023 Episodic Results Test Name Value Interpretation Reference Range Facility Surgical Pathology Reporton 06-15-2024 Surgical Pathology Report [address] [id number]- Surgical Pathology Report Collected Date/Time: 06/11/2024 11:20 EST Pathologist: Bill NOBLE PhD, Cristi Bains Received Date/Time: 06/11/2024 12:36 EST Sunday Bhakta DO, DO, Michael T 07 Surgical Pathology Report - 06/15/2024 11:39 EST - Auth (Verified) Final Diagnosis LEFT HIP BONE AND SOFT TISSUE, ARTHROPLASTY: - BONE CARTILAGE WITH DEGENERATIVE REMODELING CHANGES AND AVASCULAR NECROSIS, CONSISTENT WITH DEGENERATIVE OSTEOARTHRITIS. - BENIGN SYNOVIAL SOFT TISSUE. (Electronic Signature) Cristi Khan MD PhD 06/15/2024 11:39 Clinical Information Left hip osteoarthritis Pre-Op Diagnosis: Left hip osteoarthritis Procedure: Left total hip arthroplasty Post-Op Diagnosis: 1. Left hip endstage osteoarthritis 2. Antalgic gait 3. Failure of conservative care Specimen(s) Received Left hip bone and soft tissue Gross Description Received in formalin labeled with patient name, number, and left hip bone and soft tissue is a femoral head measuring 4.5 x 4.3 cm and up to 4 cm from the neck margin to the top of the articular surface. The articular surface is thin, rough, and eburnated with osteophyte formation present. Cross-sectioning through the femoral head contains an area of yellow discoloration adjacent to the articular surface measuring 1.1 x 0.8 cm. At the area of discoloration the bony tissue has an area of softening measuring 0.5 x 0.5 cm. Also received in the container are multiple fragments of light yellow/norris/pink/forrest dena-brown bone and soft tissue measuring in aggregate 8.5 x 7.5 x 3.5 cm. Area Mechanic portion is submitted in two cassettes: 1 - Soft tissue 2 - Bone after decalcification (DC) DC:[facility] Microscopic Description Microscopic examination performed unless gross only specified. This report was transcribed using voice recognition technology and might contain unintended computerized staff air tactical officer errors. Normal [facility] Comment on above: Performed By: #### [id number] #### [facility] [address] [place] [id number] Main OR Intraoperative Recor don 06-12-2024 Main OR Intraoperative Record Main OR Intraoperative Record IntraOp Document Type FT Summary Primary Physician: Sunday Bhakta DO Finalized Date/Time: 06/12/24 14:07:11 Pt. Name: CAMILA GARCIA/Sex: 1955 Female Med Rec #: [id number] Physician: Sunday Bhakta DO Financial #: [id number] Pt. Type: A Room/Bed: [place] [address] Admit/Disch: 06/11/24 08:02:13 - 06/11/24 17:30:00 Institution: Case Times FT Entry 1 Patient Times In Room 06/11/24 10:47:00 Out Room 06/11/24 11:56:00 Procedure Times Start 06/11/24 11:14:00 Stop 06/11/24 11:48:00 Anesthesia Times Start 06/11/24 10:47:00 Stop 06/11/24 11:56:00 Last Modified By: Luke WATTERS, Renee Nelson 06/11/24 11:55:59 General Comments: SPINAL DONE BY Ambika NAJERA CRNA AT 1053 -Monroe REDD RN 06/12/24 Chart opened to review and send charges [facility] Case Attendance FT Entry 1 Entry 2 Entry 3 Case Attendee Manoj TORRES, CESAR, Sunday Baltazar DO ROOM DESIGNER, Dominga Isaac Role Performed MEDICAL OFFICE SPECIALIST Surgeon - Primary ROOM DESIGNER/SA Time In 06/11/24 10:47:00 06/11/24 10:47:00 06/11/24 10:47:00 Time Out 06/11/24 11:56:00 06/11/24 11:44:00 06/11/24 11:56:00 Procedure HIP TOTAL HIP TOTAL HIP TOTAL ARTHROPLASTY(Left) ARTHROPLASTY(Left) ARTHROPLASTY(Left) Comments DR. DARBY SUPERVISING Last Modified By: Luke WATTERS, Renee Redd RN, Renee Redd RN, Renee Nelson 06/11/24 Mary Nelson 06/11/24 Mary Nelson 06/11/24 11:55:59 11:55:59 11:55:59 Entry 4 Entry 5 Entry 6 Case Attendee Luke WATTERS, Diego Hunter Madison A Veronica P Role Performed Mechanical Maintenance Engineer - Primary Scrub - Primary Staff - Other Time In 06/11/24 10:47:00 06/11/24 10:47:00 06/11/24 10:47:00 Time Out 06/11/24 11:56:00 06/11/24 11:56:00 06/11/24 11:56:00 Procedure HIP TOTAL HIP TOTAL HIP TOTAL ARTHROPLASTY(Left) ARTHROPLASTY(Left) ARTHROPLASTY(Left) Comments 2ND SCRUB Last Modified By: Luke WATTERS, Renee Redd RN, Renee Redd RN, Renee Nelson 06/11/24 Mary Nelson 06/11/24 Mary Nelson 06/11/24 11:55:59 11:55:59 11:55:59 Entry 7 Case Attendee Rahul WATTERS, Sami Bains Role Performed Staff - Other Time In 06/11/24 10:47:00 Time Out 06/11/24 11:43:00 Procedure HIP TOTAL ARTHROPLASTY(Left) Comments 3RD SCRUB Last Modified By: Luke WATTERS, Renee Nelson 06/11/24 11:55:59 General Comments: LISA SHEA, DEPUY REP PRESENT FOR CASE -VAnca REDD RNencyclopedia research worker Protocols FT Pre-Care Text: Implements protective measures prior to operative or invasive procedure, confirms identity before the operative or invasive procedure, verifies operative procedure, surgical site, and laterality Entry 1 Procedure(s) HIP TOTAL Patient Identity Birthday, Blood Band, ARTHROPLASTY(Left) Verified (select at ID Band Check, Patient least 2): Participation Consents / H and P Anesthesia Consent, Operative Site Present Verified H&P, Surgery/Procedure Marking Verified Consent, Transfusion Consent Surgical Site Yes Laterality Verified Yes Verified Procedure Verified Yes Correct Patient Yes Position Verified Availability Equipment, Implant, Prep Dry n/a Verified (If Medication Applicable) PreOp Antibiotic Yes Time Out Mary LATIF, Sunday Latif, Given Participants Manoj TORRES, CESAR, Antony Parkinsonhelgerson RODRIGUES, Dominga C, Luke WATTERS, Erin Nolan Kendall R, Chaput, Madison A, Sami Kay RN Time Out Complete 06/11/24 11:13:00 Outcomes Met? Yes Last Modified By: Luke WATTERS, Renee Nelson 06/11/24 11:17:55 Post-Care Text: The patient is free from signs and symptoms of injury caused by extraneous objects Allergy Information FT Pre-Care Text: Verifies allergies Entry 1 Allergies Reviewed? Yes Allergies Reviewed Self/Patient With Outcomes Met? Yes Last Modified By: Luke WATTERS, Renee Nelson 06/11/24 11:17:58 Post-Care Text: The patient received appropriate medication(s) safely administered during the perioperative period Surgical Procedures FT Entry 1 Procedure Description Procedure HIP TOTAL ARTHROPLASTY Modifiers Left Surgeon Description LEFT TOTAL HIP ARTHROPLASTY Primary Procedure Yes Primary Surgeon Mary Sunday LATIF Start 06/11/24 11:14:00 Stop 06/11/24 11:48:00 Anesthesia Type General Surgical Service Orthopedics Wound Class 1 - Clean Last Modified By: Renee Redd RN 06/11/24 11:48:50 General Case Data FT Pre-Care Text: Classifies surgical wound, implements aseptic technique, initiates traffic control Entry 1 Case Information OR OR 5 FT Case Level Level 6 Wound Class 1 - Clean Specialty Orthopedics ASA Class 2 Preop Diagnosis LEFT HIP OSTEOARTHRITIS Postop Same As Preop Yes Postop Diagnosis LEFT HIP OSTEOARTHRITIS Outcomes Met? Yes Last Modified By: Renee Redd RN 06/11/24 11:18:36 Post-Care Text: The patient is free from signs and symptoms of infection Skin Assessment (Pre Procedure) FT Pre-Care Text: Implements protective measures to prevent sk (more content not included)... Normal [facility] Operative Reporton Operative Report Operative Report SURGERY DATE: 06/11/2024 WATER POLLUTION SCIENTIST: Dominga Constantino C.F.A. PREOPERATIVE DIAGNOSES: 1. Left hip endstage osteoarthritis 2. Antalgic gait 3. Failure of conservative care POSTOPERATIVE DIAGNOSES: 1. Left hip endstage osteoarthritis 2. Antalgic gait 3. Failure of conservative care OPERATION: Left total hip arthroplasty ANESTHESIA: Spinal with sedation with right lateral decubitus position ESTIMATED BLOOD LOSS: 100 cc SPECIMEN: Bone IMPLANTS UTILIZED: [employer] G[employer]ion 50 mm cup, two 20 mm superior screws, a 50 x 28 polyethylene lipped liner, 28+5 ceramic head, a #2 [employer] ACTIS Press-Fit stem HISTORY AND INDICATIONS: Camila is a 68-year-old female with progressive [id number] disease to the left hip. She has failed conservative injection management. The pros, cons, risks, benefits, and reasonable expectations of above procedure were discussed, consent form signed and charted, sites marked preoperatively, all questions answered preoperatively, antibiotics provided weight based per protocol. All questions were answered. PROCEDURE: Camila was taken to the Operating Room and placed in supine position. Anesthesia was provided. She was placed in the right lateral decubitus position on the [employer] pegboard table. All bony prominences were padded. The left hip, thigh, and leg were prepped and draped in sterile fashion. A time-out procedure occurred consistent with the consent form, History and Physical, preoperative marked site. Landmarks were identified. Once time-out was confirmed, a posterolateral incision was made of approximately 3 . Fascia was split. A self-retaining retractor was applied. Posterolateral approach was encountered. Piriformis was tagged and released with a #2 Ethibond. The capsule was split in a T fashion and tagged at the apices with #2 Ethibond. Sciatic nerve was protected through the procedure. The head was dislocated with flattening of the femoral head with exposed bone grade 4 in nature. A fresh cut was made one fingerbreadth above the lesser trochanter, and the head was removed. The cut length was appropriate. Calcar was intact. Attention was then directed to the acetabulum. Blunt dissection was performed. The labrum and peripheral osteophytes were removed. Reaming started at a 44 up to a 49 with appropriate medialization and tilt. Trial cup was placed with good fit, fill, position, and alignment. Exparel 20 cc was injected along the acetabulum. The Irrisept was allowed to soak followed by copious irrigation with a pulsed lavage accounts payable coordinator. Once the bone was prepared, the size 50 Sector Gription cup with appropriate version and tilt was impacted in place and deemed stable. Two 20 mm transfixing screws were placed superiorly. Trial liner was applied. Attention was then directed to the proximal femur. Canal sounding, reaming, and broaching were performed up to a 2 with the ACTIS stem. Trial components were placed with good position and alignment, tension, leg length, and stability. All trial components were removed. After copious irrigation the liner was impacted in place, the #2 ACTIS stem was impacted in place, and it was retrialed. The Christopher taper was cleansed and a 28+5 ceramic head was impacted, reduced, and taken through arc of motion and deemed stable. After copious irrigation two 2.5 mm drill bit holes were placed in the greater trochanter for repair of the capsule and external rotator. Capsule was closed with 0 Vicryl suture. Cjdkxe-efnsfwu-uzzz technique was performed with a Hecharoon suture passer of the piriformis and capsule. Anatomic repair was achieved and appropriately tied. Remaining 80 cc of Exparel was injected along the fascia and subcutaneous tissues. Tranexamic acid 2 g was placed subfascially. The fascial layer was closed with #2 Quill suture in a running fashion, 2-0 Quill suture closed the subcutaneous tissues, and a 2-0 Monoderm intracuticular suture was placed with liquid adhesive glue. An 8 Mepilex dressing with abduction pillow was applied. Camila was transferred supine to the Recovery Room in stable and satisfactory condition. CASE: Clean and elective COUNTS: Sponge and needle count correct SPECIMEN: Bone PATIENT CONDITION: Satisfactory Sunday Bhakta D.O. ca Dictated: 06/11/2024 [id number] Transcribed: 06/11/2024 cc:Efrain Munguia D.O. Normal [facility] Comment on above: Result Comment: Elec tronically Signed By: Sunday Bhakta DO\.br\Date and Time Signed: 06/12/24 07:05 EST ABO/Rhon 06-11-2024 ABO/Rh Positive Invalid Interpretation Code [facility] Comment on above: Performed By: #### [id number] #### [facility] [address] [place] [address] ABO/Rh History Checkon 06-11 ABO/Rh History Check Verified Hx Blood Type Normal [facility] Comment on above: Performed By: #### 1 [id number] #### [facility] [address] [place] [address] ABSCon 06-11-2024 ABSC Gel Interp Negative Normal [facility] Comment on above: Performed By: #### 1 [id number] #### [facility] [address] [place] [address] BLOOD BANKOrdered By: Justin Andrews on 06-11-2024 ABO/Rh Interp Positive Invalid Interpretation Code [facility] BB Subsection ABSC Gel Interp Negative (06/11/24 8:32 AM) Normal [facility] BB Subsection Blood Bank ID#on 06-11-2024 BBID# [id number] Invalid Interpretation Code [facility] Comment on above: Performed By: #### 1 [id number] #### [facility] [address] [place] [address] Discharge Instructionson Discharge Instructions Discharge Instructions CAMILA GARCIA :1955 Visit Date:06/11/2024 Inpatient Discharge Instructions Your Care Team Admitting Physician - Sunday Bhakta DO Referring Physician - Sunday Bhakta DO Reason for Your Visit LEFT HIP OA Your Diagnosis Localized osteoarthrosis of left hip Tests Performed XR Hip 1 View Left + Pelvis -- Results Pending -- Please visit your patient portal for your results or contact your primary care physician. This Is Your Medications List acetaminophen-oxycod one (Percocet 5 mg-325 mg oral tablet) aspirin (aspirin 325 mg Tab) docusate (Colace 100 mg Cap) ibuprofen loratadine (loratadine 10 mg Tab) montelukast (Singulair 10 mg Tab) Procedure History Hip arthrogram (03/19/2024), Cholecystectomy, right foot hind and midfoot fusion. What to do next Instructions From Your Doctor Event Name Event Result Discharge Instructions Freetext Pillow between legs in bed for 4 weeks. Discharge Activity Ambulate as tolerated, Arrange for a responsible adult supervision for 24 hours, Expect mild pain, Expect minimal amount of drainage and/or bleeding, Do not lift more than 5 lbs Discharge Restrictions No driving, Do not operate machinery or tools, Do not make important decisions for 24 hours, Do not drink alcoholic beverages for 24 hours Discharge Diet(s) Regular, Drink liquids and eat a light meal Call Your Doctor For Persistent or heavy bleeding, Temperature above 101.5 degrees, Redness, swelling, or pus at operative site, Severe pain at the operative site, Persistent vomiting Wound Care Remove dressing as instructed Remove Dressing On 10 Discharge Instructions Discharge Instructions New Follow Up Appointments after Discharge Follow Up with KRISTOPHER Lacey When: 07/10/2024 08:15 AM EDT Comments: Keep scheduled appointmentCall for any problems. Where: [address] [place] [address]- Business (1) Medications What How Much When Instructions Next Dose Unchanged acetaminophen-oxycod one (Percocet 5 mg-325 mg oral tablet) See instructions Take one to two oral every 4 hours as needed for surgical pain. Unchanged aspirin (aspirin 325 mg Tab) 1 Tablets By Mouth Every day Duration: 30 Days Start the day after surgery for blood clot prevention. Unchanged docusate (Colace 100 mg Cap) 1 Capsules By Mouth 2 times a day Unchanged ibuprofen 600 Milligram By Mouth 2 times a day Unchanged loratadine (loratadine 10 mg Tab) 1 Tablets By Mouth Every day Unchanged montelukast (Singulair 10 mg Tab) 10 Milligram By Mouth Once a day (in the evening) MOHSEN: Intolerant to generic montelukast Education Materials How to Use an Incentive Spirometer An incentive spirometer is a tool that measures how well you are filling your lungs with each breath. Learning to take long, deep breaths using this tool can help you keep your lungs clear and active. This may help to reverse or lessen your chance of developing breathing (pulmonary) problems, especially infection. You may be asked to use a spirometer: ??? After a surgery. ??? If you have a lung problem or a history of smoking. ??? After a long period of time when you have been unable to move or be active. If the spirometer includes an indicator to show the highest number that you have reached, your health care provider or respiratory therapist will help you set a goal. Keep a log of your progress as told by your health care provider. What are the risks? Breathing too quickly may cause dizziness or cause you to pass out. Take your time so you do not get dizzy or light-headed. ??? If you are in pain, you may need to take pain medicine before doing incentive spirometry. It is harder to take a deep breath if you are having pain. How to use your incentive spirometer 1. Sit up on the edge of your bed or on a chair. 2. Hold the incentive spirometer so that it is in an upright position. 3. Before you use the spirometer, breathe out normally. 4. Place the mouthpiece in your mouth. Make sure your lips are closed tightly around it. 5. Breathe in slowly and as deeply as you can through your mouth, causing the piston or the ball to rise toward the top of the chamber. 6. Hold your breath for 3???5 seconds, or for as long as possible. ??? If the spirometer includes a coach wirer indicator, use this to guide you in breathing. Slow down your breathing if the indicator goes above the marked areas. 7. Remove the mouthpiece from your mouth and breathe out normally. The piston or ball will return to the bottom of the chamber. 8. Rest for a few seconds, then repeat the steps 10 or more times. ??? Take your time and take a few normal breaths between deep breaths so that you do not get dizzy or light-headed. ??? Do this every 1???2 hours when you are awake. 9. If the spirometer includes a goal marker (more content not included)... Normal [facility] Comment on above: Result Comment: Elec tronically Signed By: Christian WATTERS, Sedrick Chahal\.br\Date and Time Signed: 06/11/24 15:52 EST Main OR PACU I Recordon 06-02 Main OR PACU I Record Main OR PACU I Record PACU Phase I Document Type FT Summary Primary Physician: Sunday Bhakta DO Finalized Date/Time: 06/11/24 12:36:48 Pt. Name: TAZNEHEMIASCAMILA/Sex: 1955 Female Med Rec #: [id number] Physician: Sunday Bhakta DO Financial #: [id number] Pt. Type: A Room/Bed: [place] [address] Admit/Disch: 06/11/24 08:02:13 - Institution: Case Times PACU I FT Pre-Care Text: Identifies barriers to communication and implements measures to provide psychological support Develops individualized plan of care, and ensures continuity of care Maintains patient's dignity and privacy, and maintains patient confidentiality Identifies and reports philosophical, cultural, and spiritual beliefs and values Identifies individual values and wishes concerning care Implements aseptic technique, and administers prescribed antibiotic therapy and immunizing agents as ordered Evaluates postoperative tissue perfusion Implements thermoregulation measures, and monitors body temperature Evaluates postoperative respiratory status Evaluates postoperative cardiac status Evaluates postoperative neurological status Assesses pain control, collaborated in initiating patient-controlled analgesia and implements alternative methods of pain control Verifies allergies, administers prescribed medications and solutions, evaluates response to medications Entry 1 In PACU I 06/11/24 11:57:00 Discharge from PACU 06/11/24 12:27:00 I Outcomes Met? Yes Last Modified By: Jocelyn Brantley RN 06/11/24 12:36:21 Post-Care Text: The patient demonstrates knowledge of the expected response to the operative or invasive procedure The patient's care is consistent with the individualized perioperative plan of care The patient's right to privacy is maintained The patient's value system, lifestyle, ethnicity, and culture are considered, respected, and incorporated into the perioperative plan of care The patient participates in decisions affecting his or her perioperative plan of care The patient is free from signs and symptoms of infection The patient has wound/tissue perfusion consistent with or improved from baseline levels established preoperatively The patient is at or returning to normothermia at the conclusion of the immediate postoperative period The patient's respiratory function is consistent with or improved from baseline levels established preoperatively The patient's cardiovascular status is consistent with or improved from baseline levels established preoperatively The patient's cardiovascular status is consistent with or improved from baseline levels established preoperatively The patient demonstrates and/or reports adequate pain control throughout the perioperative period The patient received appropriate medication(s), safely administered during the perioperative period Acuity Level PACU I FT Entry 1 Start Time 06/11/24 11:57:00 Stop Time 06/11/24 12:27:00 Acuity Level Acuity Level I Last Modified By: Jocelyn Brantley RN 06/11/24 12:36:34 Finalized By: Jocelyn Brantley RN Document Signatures Signed By: Jocelyn Brantley RN 06/11/24 12:36 Jocelyn Brantley RN 06/11/24 12:36 Normal [facility] Main OR PACU II Recordon Main OR PACU II Record Main OR PACU II Record PACU Phase II Document Type FT Summary Primary Physician: Sunday Bhakta DO Finalized Date/Time: 06/11/24 17:25:16 Pt. Name: CAMILA GARCIA/Sex: 1955 Female Med Rec #: [id number] Physician: Sunday Bhakta DO Financial #: [id number] Pt. Type: A Room/Bed: AS Admit/Disch: 06/11/24 08:02:13 - 06/11/24 17:30:00 Institution: Case Times PACU II FT Pre-Care Text: Identifies barriers to communication and implements measures to provide psychological support and determines knowledge level Develops individualized plan of care, and ensures continuity of care Maintains patient's dignity and privacy, and maintains patient confidentiality Identifies and reports philosophical, cultural, and spiritual beliefs and values Identifies individual values and wishes concerning care administers prescribed antibiotic therapy and immunizing agents as ordered, Evaluates postoperative tissue perfusion Implements thermoregulation measures, and monitors body temperature Evaluates postoperative respiratory status Evaluates postoperative cardiac status Evaluates postoperative neurological status Assesses pain control, collaborated in initiating patient-controlled analgesia and implements alternative methods of pain control Verifies allergies, administers prescribed medications and solutions, evaluates response to medications Entry 1 In PACU II 06/11/24 12:30:00 Discharge from PACU 06/11/24 17:30:00 II Outcomes Met? Yes Last Modified By: Iraida Farah RN 06/11/24 17:25:15 Post-Care Text: The patient demonstrates knowledge of the expected response to the operative or invasive procedure The patient's care is consistent with the individualized perioperative plan of care The patient's right to privacy is maintained The patient's value system, lifestyle, ethnicity, and culture are considered, respected, and incorporated into the perioperative plan of care The patient participates in decisions affecting his or her perioperative plan of care. The patient is free from signs and symptoms of infection The patient has wound/tissue perfusion consistent with or improved from baseline levels established preoperatively The patient is at or returning to normothermia at the conclusion of the immediate postoperative period The patient's respiratory function is consistent with or improved from baseline levels established preoperatively The patient's cardiovascular status is consistent with or improved from baseline levels established preoperatively The patient's neurological status is consistent with or improved from baseline levels established preoperatively The patient demonstrates and/or reports adequate pain control throughout the perioperative period The patient received appropriate medication(s), safely administered during the perioperative period Finalized By: Iraida Farah RN Document Signatures Signed By: Iraida Farah RN 06/11/24 17:25 [facility] Main OR Preoperative Recordo n 06-11-2024 Main OR Preoperative Record Main OR Preoperative Record PreOp Document Type FT Summary Primary Physician: Sunday Bhakta DO Finalized Date/Time: 06/11/24 11:28:32 Pt. Name: CAMILA GARCIA/Sex: 1955 Female Med Rec #: [id number] Physician: Sunday Bhakta DO Financial #: [id number] Pt. Type: A Room/Bed: 07/ Admit/Disch: 06/11/24 08:02:13 - Institution: Case Times PreOp FT Pre-Care Text: Verifies consent for planned procedure, identifies individual values and wishes concerning care, includes family members in perioperative teaching Entry 1 Patient Times. In Pre Surgery 06/11/24 08:10:00 Out Pre Surgery 06/11/24 10:45:00 Outcomes Met? Yes Last Modified By: Renee Redd RN 06/11/24 11:28:31 Post-Care Text: The patient participates in decisions affecting his or her perioperative plan of care Finalized By: Renee Redd RN Document Signatures Signed By: Renee Redd RN 06/11/24 11:28 Normal [facility] XR HIP 1 VIEW LEFT + PELVISo n 06-11-2024 Exam Date/Time: 06/11/2024 12:12 EST Reason for Exam: Post Op Report IMPRESSION: NEGATIVE POSTOPERATIVE LEFT HIP. CLINICAL HISTORY: POST OP COMPARISONS: 02/10/2024. FINDINGS: Supine AP film of the pelvis to include both hips and lateral view of the left hip were obtained. Patient is undergone bipolar left hip replacement. No fracture. No abnormal lucency bone prosthetic interface. Moderate narrowing right hip joint. Surgical clips again demonstrated in pelvic inlet. Ordering Provider: Sunday Bhakta FINAL REPORT Dictated: 06/11/2024 5:31 pm Christiano Romo MD Signed (Electronic Signature): 06/11/2024 5:31 pm Signed by: Christiano Romo MD Transcribed by: PANKAJ Technologist: JARAD, [facility] Radiology, Radiologist, MD - 06/11/2024 Exam Date/Time: 06/11/2024 12:12 EST Reason for Exam: Post Op Report IMPRESSION: NEGATIVE POSTOPERATIVE LEFT HIP. CLINICAL HISTORY: POST OP COMPARISONS: 02/10/2024. FINDINGS: Supine AP film of the pelvis to include both hips and lateral view of the left hip were obtained. Patient is undergone bipolar left hip replacement. No fracture. No abnormal lucency bone prosthetic interface. Moderate narrowing right hip joint. Surgical clips again demonstrated in pelvic inlet. Ordering Provider: Sunday Bhakta FINAL REPORT Dictated: 06/11/2024 5:31 pm Christiano Romo MD Signed (Electronic Signature): 06/11/2024 5:31 pm Signed by: Christiano Romo MD Transcribed by: PANKAJ Technologist: JARAD [facility] Radiology Study observation (narrative) [employer] [facility] XR HIP 1 VIEW LEFT + PELVISO rdered By: Radiologist Radiology on 06-11-2024 [employer] [facility] [employer] Work Phone: XR Hip 1 View Left + Pelviso n 06-11-2024 XR Hip 1 View Left + Pelvis Exam Date/Time: 06/11/2024 12:12 EST Reason for Exam: Post Op Report IMPRESSION: NEGATIVE POSTOPERATIVE LEFT HIP. CLINICAL HISTORY: POST OP COMPARISONS: 02/10/2024. FINDINGS: Supine AP film of the pelvis to include both hips and lateral view of the left hip were obtained. Patient is undergone bipolar left hip replacement. No fracture. No abnormal lucency bone prosthetic interface. Moderate narrowing right hip joint. Surgical clips again demonstrated in pelvic inlet. Ordering Provider: Sunday Bhakta FINAL REPORT Dictated: 06/11/2024 5:31 pm Christiano Romo MD Signed (Electronic Signature): 06/11/2024 5:31 pm Signed by: Christiano Romo MD Transcribed by: PANKAJ Technologist: Sayra ABRAHAM [facility] Inpatient Patient Summaryon 06-06-2024 Inpatient Patient Summary Inpatient Patient Summary [facility] [address], [place] [address] [facility] Clinical Discharge Instructions PERSON INFORMATION Name: CAMILA GARCIA [facility]#:[id number] PHYSICIANS Admitting Physician: Sunday Bhakta DO Attending Physician: Sunday Bhakta DO PCP: Efrain Munguia DO Discharge Diagnosis: Localized osteoarthrosis of left hip Comment: PATIENT EDUCATION INFORMATION Instructions: Mary - Hip Replacement Arthroplasty (CUSTOM) Medication Leaflets: Follow up: With: Address: When: Sunday Bhakta [address] [place] [address] Business (1) Comments: Keep scheduled appointment Type Location Start [facility] 06/11/2024 11:15 AM 06/11/2024 12:15 PM Confirmed MEDICATION LIST Medications to Continue with No Changes Other Medications ibuprofen 600 Milligram By Mouth 2 times a day. loratadine (loratadine 10 mg Tab) 1 Tablets By Mouth every day. montelukast (Singulair 10 mg Tab) 10 Milligram By Mouth once a day (in the evening). MOHSEN: Intolerant to generic montelukast. Refills: 3. Comment: Normal [facility] Outpatient Surgery Discharge Instructionon 06-06-2024 Outpatient Surgery Discharge Instruction Outpatient Surgery Discharge Instruction [place] [id number] Patient Discharge Instructions PERSON INFORMATION Name: CAMILA GARCIA Date of : 1955 Current Date: 06/06/2024 15:14:34 PHYSICIANS Admitting Physician: Sunday Bhakta DO Discharge Diagnosis: Localized osteoarthrosis of left hip CAMILA GARCIA has been given the following list of follow-up instructions, prescriptions, and patient education materials: PATIENT FOLLOW-UP INFORMATION Diet: Regular, Drink liquids and eat a light meal Discharge Activity: Ambulate as tolerated, Arrange for a responsible adult supervision for 24 hours, Expect mild pain, Expect minimal amount of drainage and/or bleeding, Do not lift more than 5 lbs Discharge Restrictions: No driving, Do not operate machinery or tools, Do not make important decisions for 24 hours, Do not drink alcoholic beverages for 24 hours Call Your Doctor For: Persistent or heavy bleeding, Temperature above 101.5 degrees, Redness, swelling, or pus at operative site, Severe pain at the operative site, Persistent vomiting Wound Care Instructions: Remove dressing as instructed Remove Your Dressing In 10 Days Additional Instructions: Pillow between legs in bed for 4 weeks. IF UNABLE TO CONTACT YOUR PHYSICIAN AND YOU FEEL IT IS AN EMERGENCY, GO TO THE NEAREST EMERGENCY ROOM OR CALL 911 JOSE Osborn THERESA A, have received the attached patient education materials/instructio ns and have verbalized understanding: May we do a follow up call? Yes No I was present when discharge instructions were given Patient Signature Date Clinican/Nurse Signature Date Follow up: With: Address: When: Sunday Bhakta [address] [place], [place] [id number] [facility] (1) Comments: Keep scheduled appointment Type Location Start [facility] Surgery [facility] 06/11/2024 11:15 AM 06/11/2024 12:15 PM Confirmed Pharmacy Information: You may receive a survey from Ismael Rivera asking you to rate your care experience. Your feedback is important and will help us understand what we do well and how we can improve the quality of care we provide to you, your loved ones and our community. It???s an honor to serve you. Thank you for choosing [facility] HERE ARE THE MEDICATION CHANGES THAT OCCURRED DURING YOUR HOSPITAL STAY Medications to Continue with No Changes Other Medications ibuprofen 600 Milligram By Mouth 2 times a day. loratadine (loratadine 10 mg Tab) 1 Tablets By Mouth every day. montelukast (Singulair 10 mg Tab) 10 Milligram By Mouth once a day (in the evening). MOHSEN: Intolerant to generic montelukast. Refills: 3. PATIENT EDUCATION INFORMATION Instructions: [place], [place] [facility] DISCHARGE INSTRUCTIONS HIP REPLACEMENT ARTHROPLASTY INCISION CARE: Mepilex dressing can get wet with showers. Please remove 10 days after surgery per instruction sheet. Physical Therapy will monitor. If joselito present, please coordinate removal 21 days after surgery with office staff. Please notify the office if any increase in redness, tenderness, drainage, fever, or wound separation is noted beyond this point. Compression stockings may be helpful if any significant or uncomfortable swelling in the legs is noted postoperatively. Use and removal instructions should be given by physical therapy. If the swelling is below the knee, knee high compression stockings may suffice. If this does cause swelling into the thigh region, waist high compression stockings may be beneficial as well. These can be obtained from most pharmacies, or can be obtained from the hospital or through Home Health. The mild grade compression stockings are best used initially, and dislocation precautions must be maintained. DISLOCATION PRECAUTIONS: Continue to use the abduction pillow between the knees at all times while in bed. This abduction pillow should be removed while walking and performing physical therapy exercises; otherwise, to be used while in bed. This is to be maintained for four weeks postoperatively. At that time you may begin using a regular bed pillow between your knees at night as needed. You should continue to avoid crossing the knees or crossing the legs for two months postoperatively. Sitting in a chair should always be such that the knees are kept below the level of the hips to avoid increased flexion of the hip, possibly causing dislocation. No sleeping on the operative side for 4 weeks. MEDICATIONS: You may resume your home medications at the time of (more content not included)... Normal [facility] UA WITH CULT RFLXon 05-25-19 BILIRUBIN:PRTHR:PT:UR INE:ORD:TEST STRIP.AUTOMATED Negative Negative mg/dL [facility] CLARITY:TYPE:PT:URINE :NOM: Clear Clear [facility] CLASS:TYPE:PT:URINE COLLECTION METHOD:NOM:* Clean Catch [facility] COLOR:TYPE:PT:URINE:N OM:AUTO Light-Yellow Yellow [facility] Comment on above: Microscopic readings are only performed on those samples that meet specific criteria set forth by [facility]. [facility] PH:LSCNC:PT:URINE:QN: TEST STRIP 5.0 5.0 - 9.0 [facility] SPECIFIC GRAVITY:RDEN:PT:URINE :QN:TEST STRIP 1.012 1.005 - 1.030 [facility] GLUCOSE:PRTHR:PT:URIN E:ORD:TEST STRIP Negative Negative mg/dL [facility] HEMOGLOBIN:MCNC:PT:UR INE:SEMIQN:TEST STRIP.AUTOMATED Negative Negative mg/dL [facility] KETONES:PRTHR:PT:URIN E:ORD:TEST STRIP.AUTOMATED Negative Negative mg/dL [facility] LEUKOCYTE ESTERASE:PRTHR:PT:URI NE:ORD:TEST STRIP.AUTOMATED Negative Negative CD:[id number] [facility] NITRITE:PRTHR:PT:URIN E:ORD:TEST STRIP.AUTOMATED Negative Negative mg/dL [facility] PROTEIN:PRTHR:PT:URIN E:ORD:TEST STRIP Negative Negative mg/dL [facility] UROBILINOGEN:MCNC:PT: URINE:SEMIQN:TEST STRIP Negative Negative mg/dL [facility] Original Ordering Provider: DO Sunday Bhakta [facility] XR Chest 2 Viewson XR Chest 2 Views Exam Date/Time: 05/25/2024 08:17 EST Reason for Exam: P.A.T. Report IMPRESSION: NO EVIDENCE OF ACTIVE CHEST DISEASE. CLINICAL HISTORY: P.A.T.. COMPARISON: COMMENT: The heart is normal in size. The mediastinum is unremarkable. The lungs appear clear. No infiltration nor pleural effusion is evident. No significant change is noted when compared to the prior exam. Ordering Provider: Misha Max FINAL REPORT Dictated: 05/25/2024 2:15 pm Levon Mejia M.D. Signed (Electronic Signature): 05/25/2024 2:15 pm Signed by: Levon Mejia M.D. Transcribed by: PANKAJ Technologist: FESTUS Technical Comments Radiation Dose: Ka,r in mGy = na DAP = na Normal [facility] eGFRon 05-25-2024 eGFR 79 mL/min/1.73 m2 Normal >=59 [facility] Comment on above: Performed By: #### 1 [id number] #### [facility] [address] [place] [address] XR Knee - left 3 Viewson Imaging Result: Multiple weightbearing views (AP, Lateral and sunrise) are reviewed for the permanent PACS record. Advanced grade 3-4 degenerative changes are present of the left knee mainly lateral with valgus deformity. No fracture, dislocation, tumor or infection seen. Images are reviewed with the patient at length. Former[facility], [facility] Radiology Study observation (narrative) [facility] Main OR Intraoperative Recor don 03-20-2024 Main OR Intraoperative Record Main OR Intraoperative Record IntraOp Document Type FT Summary Primary Physician: Sunday Bhakta DO Finalized Date/Time: 03/20/24 12:29:00 Pt. Name: CAMILA GARCIA Elvia /Sex: 1955 Female Med Rec #: [id number] Physician: Sunday Bhakta DO Financial #: [id number] Pt. Type: A Room/Bed: [place] [address] Admit/Disch: 03/19/24 06:04:51 - 03/19/24 07:20:00 Institution: Case Times FT Entry 1 Patient Times In Room 03/19/24 07:04:00 Out Room 03/19/24 07:13:00 Procedure Times Start 03/19/24 07:07:00 Stop 03/19/24 07:10:00 Anesthesia Times Last Modified By: Madelin Gardner RN 03/19/24 07:19:58 General Comments: 03/20/24 Chart opened to review and send charges [facility] CSFA Case Attendance FT Entry 1 Entry 2 Entry 3 Case Attendee Sunday Bhakta DO, Laura C Ott RN, Leann E Role Performed Surgeon - Primary Scrub - Primary Mechanical Maintenance Engineer - Primary Time In 03/19/24 07:06:00 03/19/24 07:04:00 03/19/24 07:04:00 Time Out 03/19/24 07:11:00 03/19/24 07:13:00 03/19/24 07:13:00 Procedure HIP ARTHROGRAM(Left) HIP ARTHROGRAM(Left) HIP ARTHROGRAM(Left) Comments Last Modified By: Madelin Gardner RN, RN, Leann E Ott RN, Leann E 03/19/24 07:50:48 03/19/24 07:50:48 03/19/24 07:50:48 Entry 4 Case Attendee Sharon Pimentel Role Performed Hog Killer Time In 03/19/24 07:04:00 Time Out 03/19/24 07:13:00 Procedure HIP ARTHROGRAM(Left) Comments Last Modified By: Madelin Gardner RN 03/19/24 07:50:48 Perioperative Protocols FT Pre-Care Text: Implements protective measures prior to operative or invasive procedure, confirms identity before the operative or invasive procedure, verifies operative procedure, surgical site, and laterality Entry 1 Procedure(s) HIP ARTHROGRAM(Left) Patient Identity Birthday, ID Band Verified (select at Check, Patient least 2): Participation Consents / H and P H&P, Surgery/Procedure Operative Site Present Verified Consent Marking Verified Surgical Site Yes Laterality Verified Yes Verified Procedure Verified Yes Correct Patient Yes Position Verified Availability Equipment, Medication, Prep Dry n/a Verified (If X-ray Applicable) PreOp Antibiotic No Time Out Sunday Bhakta DO, Given Participants Kathryn Dubose, Madelin Gardner RN, Owsley, Chelsea R Time Out Complete 03/19/24 07:06:00 Outcomes Met? Yes Last Modified By: Madelin Gardner RN 03/19/24 07:46:43 Post-Care Text: The patient is free from signs and symptoms of injury caused by extraneous objects General Comments: No electrocautery used -JANENE Hinkleshop technician Information FT Pre-Care Text: Verifies allergies Entry 1 Allergies Reviewed? Yes Allergies Reviewed Self/Patient With Outcomes Met? Yes Last Modified By: Madelin Gardner RN 03/19/24 07:46:52 Post-Care Text: The patient received appropriate medication(s) safely administered during the perioperative period Surgical Procedures FT Entry 1 Procedure Description Procedure HIP ARTHROGRAM Modifiers Left Surgeon Description LEFT HIP ARTHROGRAM Primary Procedure Yes Primary Surgeon Sunday Bhakta DO Start 03/19/24 07:07:00 Stop 03/19/24 07:10:00 Anesthesia Type Local Surgical Service Orthopedics Wound Class 1 - Clean Last Modified By: Madelin Gardner RN 03/19/24 07:46:58 General Case Data FT Pre-Care Text: Classifies surgical wound, implements aseptic technique, initiates traffic control Entry 1 Case Information OR OR 7 FT Case Level Level 1 Wound Class 1 - Clean Specialty Orthopedics Preop Diagnosis LEFT HIP OA Postop Same As Preop Yes Postop Diagnosis LEFT HIP OA Outcomes Met? Yes Last Modified By: Soco Leos CST 03/20/24 12:28:42 Post-Care Text: The patient is free from signs and symptoms of infection Skin Assessment (Pre Procedure) FT Pre-Care Text: Implements protective measures to prevent skin/ tissue injury due to thermal or mechanical sources Evaluates for signs and symptoms of physical injury to skin and tissue Entry 1 Skin Integrity Intact, [place], Warm, & Skin Abnormality No Dry Outcomes Met? Yes Last Modified By: Madelin Gardner RN 03/19/24 07:47:11 Post-Care Text: The patient is free from signs and symptoms of injury caused by extraneous objects Patient Positioning FT Pre-Care Text: Identifies physical alterations that require additional precautions for procedure-specific positioning, verifies presence of prosthetics or corrective devices, positions the patient, evaluates the patient for signs and symptoms of injury as a result of positioning Entry 1 Procedure HIP ARTHROGRAM(Left) Body Position Supine Feet Uncrossed? Yes Left Arm Position Extended on Padded Arm Board Right Arm Position Extended on Padded Arm Left Leg Position Extended Board Right Leg Position Extended Positioning Device Padded Armboard, Safety Strap, Pillow Under Head Large Press Points Checked Yes By Kathryn Dubose, Madelin Gardner RN Outcomes Met? Yes Last (more content not included)... Normal 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 She has had buckling and giving out. She has pain and irritability. She has grade 3 to borderline 4 degenerative changes. The pros, cons, risks, benefits, and reasonable expectations of the above procedure were discussed, consent form signed and charted, sites marked preoperatively, all questions answered preoperatively. Consent form signed and witnessed. All questions were answered preoperatively. PROCEDURE: Camila is taken to the Operative Suite and placed in supine position. Unobstructed AP view was achieved from the C-arm with emergency room technician with AP view. The left hip and thigh were prepped and draped in sterile fashion after a time-out was confirmed. 10 cc of 1% plain lidocaine was injected into a subcutaneous wheal. An 18-gauge spinal needle was introduced down to the anterior femoral neck with palpable release. Contrast dye 0.5 cc was injected into the capsule confirming intracapsular placement. Of note, there was approximately 2-3 cc of straw-colored synovial benign fluid that was aspirated prior to the Omnipaque. Once confirmed in the joint, 1 cc of Kenalog (40 mg) with 4 cc of 1% plain lidocaine was injected. Needle was removed. Appropriate hemostasis was achieved. She was awake throughout the procedure and tolerated it well. Copies to the C-arm imaging for the permanent record. Band-Aid was applied. Vital signs were stable, and she was transferred back to the Ambulatory Surgery Unit in stable and satisfactory condition. CASE: Clean and elective COUNTS: Sponge and needle count correct SPECIMEN: None PATIENT CONDITION: Satisfactory Serena Lacey Dictated: 03/19/2024 [id number] Transcribed: 03/19/2024 [facility] Comment on above: Result Comment: Elec tronically Signed By: Sunday Bhakta DO\.br\Date and Time Signed: 03/20/24 07:01 EST Discharge Instructionson Discharge Instructions Discharge Instructions CAMILA GARCIA :1955 Visit Date:03/19/2024 Inpatient Discharge Instructions Your Care Team Admitting Physician - Sunday Bhakta DO Referring Physician - Sunday Bhakta DO Reason for Your Visit LEFT HIP OA Your Diagnosis Localized osteoarthrosis of left hip Tests Performed XR Fluoro Guidance Needle Placement -- Results Pending -- Please visit your patient portal for your results or contact your primary care physician. This Is Your Medications List cyanocobalamin (Vitamin B12) cyclobenzaprine (cyclobenzaprine 10 mg Tab) ergocalciferol (Vitamin D) loratadine (loratadine 10 mg Tab) meloxicam (meloxicam 15 mg Tab) montelukast (Singulair 10 mg Tab) multivitamin with minerals (Multivitamins and Minerals) Procedure History Cholecystectomy, right foot hind and midfoot fusion. Discharge Vitals Temperature (Oral) 36.5 ???C Heart Rate (Monitored) 91 Respiratory Rate 16 Blood Pressure 122/65 Height 178 cm Weight 64.6 kg What to do next Instructions From Your Doctor Event Name Event Result Discharge Instructions Freetext Ice left hip 3-4 times the day of the injection.Limit activity 50% the day of the injection. Discharge Activity Ambulate as tolerated, Arrange for a responsible adult supervision for 24 hours, Expect mild pain, Expect minimal amount of drainage and/or bleeding, Do not lift more than 5 lbs Discharge Diet(s) Regular, Drink liquids and eat a light meal Call Your Doctor For Persistent or heavy bleeding, Temperature above 101.5 degrees, Redness, swelling, or pus at operative site, Severe pain at the operative site, Persistent vomiting Discharge Instructions Discharge Instructions New Follow Up Appointments after Discharge Follow Up with KRISTOPHER Lacey When: 04/19/2024 09:15 AM EST Comments: Keep scheduled appointment Where: [address] [place] [address] [employer] (1) Medications What How Much When Instructions Next Dose Unchanged cyanocobalamin (Vitamin B12) By Mouth Every day Unchanged cyclobenzaprine (cyclobenzaprine 10 mg Tab) See instructions TAKE 1 TABLET BY MOUTH THREE TIMES DAILY NEEDED for spasm Unchanged ergocalciferol (Vitamin D) By Mouth Unchanged loratadine (loratadine 10 mg Tab) 1 Tablets By Mouth Every day Unchanged meloxicam (meloxicam 15 mg Tab) 1 Tablets By Mouth Every day Unchanged montelukast (Singulair 10 mg Tab) 10 Milligram By Mouth Once a day (in the evening) Intolerant to generic montelukast Unchanged multivitamin with minerals (Multivitamins and Minerals) 1 tab By Mouth Every day Test Results No qualifying data available. Allergies No Known Allergies Problems Ongoing - Any problem that you are currently receiving treatment for. Arm somatic dysfunction Asthma Asthma Fracture Lower limb region somatic dysfunction Lumbar region somatic dysfunction Osteoarthritis of right foot Pelvic region somatic dysfunction Sacral region somatic dysfunction Segmental and somatic dysfunction of thoracic region Segmental dysfunction of rib cage Common Emergency Awareness Tips IS IT A STROKE? Act FAST and Check for these signs: FACE Does the face look uneven? ARM Does one arm drift down? SPEECH Does their speech sound strange? TIME Call at any sign of stroke Heart Attack Signs Chest discomfort: Most heart attacks involve discomfort in the center of the chest and lasts more than a few minutes, or goes away and comes back. It can feel like uncomfortable pressure, squeezing, fullness or pain. Discomfort in upper body: Symptoms can include pain or discomfort in one or both arms, back, neck, jaw or stomach. Shortness of breath: With or without discomfort. Other signs: Breaking out in a cold sweat, nausea, or lightheaded. Remember, MINUTES DO MATTER. If you experience any of these heart attack warning signs, call to get immediate medical attention! Patient Survey You may receive a survey in the mail asking you about your stay with us. We want to hear from you, please share your experience with us by completing your survey. Thank you for choosing [facility]. Jessi Award Nomination The JESSI (Diseases Attacking the Immune SYstem) Award is an international recognition program that honors and celebrates the skillful, compassionate care nurses provide every day. Anyone who experiences or observes amazing care being provided by a nurse is encouraged to submit a nomination. To nominate your nurse, use your smart phone to scan the QR code below. Patient Portal You may access all of your results and other medical record information on our secure patient portal. If you are not signed up for this yet, please contact [employer] at [phone] to get signed up today. Patient Name: JOSE CAMILA Gan I have received this informati (more content not included)... Normal [facility] Comment on above: Result Comment: Elec tronically Signed By: Ronna WATTERS, Iraida Jones\.br\Date and Time Signed: 03/19/24 07:17 EST Main OR Preoperative Recordo n 03-19-2024 Main OR Preoperative Record Main OR Preoperative Record PreOp Document Type FT Summary Primary Physician: Sunday Bhakta DO Finalized Date/Time: 03/19/24 08:08:13 Pt. Name: CAMILA GARCIA /Sex: 1955 Female Med Rec #: [id number] Physician: Sunday Bhakta DO Financial #: [id number] Pt. Type: A Room/Bed: [facility] Admit/Disch: 03/19/24 06:04:51 - 03/19/24 07:20:00 Institution: Case Times PreOp FT Pre-Care Text: Verifies consent for planned procedure, identifies individual values and wishes concerning care, includes family members in perioperative teaching Entry 1 Patient Times. In Pre Surgery 03/19/24 06:15:00 Out Pre Surgery 03/19/24 07:02:00 Outcomes Met? Yes Last Modified By: Madelin Gardner RN 03/19/24 08:08:11 Post-Care Text: The patient participates in decisions affecting his or her perioperative plan of care Finalized By: Madelin Gardner RN Document Signatures Signed By: Madelin Gardner RN 03/19/24 08:08 Normal [facility] CBC w/ Auto Diffon 4 Basophils/100 WBC (Bld) 0.7 % Normal 0.0-2.0 [facility] Comment on above: Performed By: #### 2 [id number] #### [facility] [address] [place] [address] Basophils/Leukocytes Auto (Bld) [Pure # fraction] 0.0 E9/L Normal 0.0-0.2 [facility] Comment on above: Performed By: #### 2 [id number] #### [facility] [address] [place] [address] Eosinophils (Bld) [#/Vol] 0.2 E9/L Normal 0.0-0.5 [facility] Comment on above: Performed By: #### 2 [id number] #### [facility] [address] [place] [address] Eosinophils/100 WBC (Bld) 3.3 % Normal 0.0-8.0 [facility] Comment on above: Performed By: #### 2 [id number] #### [facility] [address] [place] [address] Erythrocyte distribution width (RBC) [Ratio] 14.2 % Normal 10.9-14.2 [facility] Comment on above: Performed By: #### 2 [id number] #### [facility] [address] [place] [address] Hematocrit (Bld) [Volume fraction] 38.0 % Normal 34.0-46.0 [facility] Comment on above: Performed By: #### 2 [id number] #### [facility] [address] [place] [address] Hemoglobin (Bld) [Mass/Vol] 13.4 g/dL Normal 12.0-16.0 [facility] Comment on above: Performed By: #### 2 [id number] #### [facility] [address] [place] [address] Lymphocytes (Bld) [#/Vol] 1.3 E9/L Normal 1.0-4.0 [facility] Comment on above: Performed By: #### 2 [id number] #### [facility] [address] [place] [address] Lymphocytes/100 WBC (Bld) 20.9 % Normal 14.0-50.0 [facility] Comment on above: Performed By: #### 2 [id number] #### [facility] [address] [place] [address] MCH (RBC) [Entitic mass] 32.8 pg Normal 27.0-34.0 [facility] Comment on above: Performed By: #### 2 [id number] #### [facility] [address] [place] [address] MCHC (RBC) [Mass/Vol] 35.2 g/dL Normal 31.4-36.0 [facility] Comment on above: Performed By: #### 2 [id number] #### [facility] [address] [place] [address] MCV (RBC) [Entitic vol] 93.1 fL Normal 80.0-100.0 [facility] Comment on above: Performed By: #### 2 [id number] #### [facility] [address] [place] [address] Monocytes (Bld) [#/Vol] 0.7 E9/L Normal 0.2-1.0 [facility] Comment on above: Performed By: #### 2 [id number] #### [facility] [address] [place] [address] Neutrophils (Bld) [#/Vol] 3.9 E9/L Normal 2.0-7.5 [facility] Comment on above: Performed By: #### 2 [id number] #### [facility] [address] [place] [address] Neutrophils/100 WBC (Bld) 64.4 % Normal 36.0-75.0 [facility] Comment on above: Performed By: #### 2 [id number] #### [facility] [address] [place] [address] Platelet 250.0 E9/L Normal 150.0-500.0 [facility] Comment on above: Performed By: #### 2 [id number] #### [facility] [address] [place] [address] Platelet mean volume (Bld) [Entitic vol] 7.6 fL Normal 6.4-10.8 [facility] Comment on above: Performed By: #### 2 [id number] #### [facility] [address] [place] [address] RBC (Bld) [#/Vol] 4.1 E12/L Low 4.3-5.9 [facility] Comment on above: Performed By: #### 2 [id number] #### [facility] [address] [place] [address] WBC corrected for nucl RBC Auto (Bld) [#/Vol] 6.1 E9/L Normal 4.0-11.0 [facility] Comment on above: Performed By: #### 2 [id number] #### [facility] [address] [place] [address] CHEMISTRYOrdered By: SYSTEM SYSTEM on 02-09-2024 Albumin [Mass/Vol] 4.3 g/dL Normal 3.3 - 5.0 gm/dL [facility] Albumin/Globulin [Mass ratio] 1.4 {ratio} Normal 1.1 - 2.2 [facility] ALP [Catalytic activity/Vol] 61 [iU]/d Normal 21 - 98 Int._Unit/L [facility] ALT No additional P-5'-P [Catalytic activity/Vol] 16 [iU]/d Normal 6 - 46 Int._Unit/L [facility] Anion gap [Moles/Vol] 8 mmol/L Normal 6 - 16 mEq/L R emisol Chem AST [Catalytic activity/Vol] 17 [iU]/d Normal 5 - 43 Int._Unit/L [facility] Bilirubin [Mass/Vol] 0.7 mg/dL Normal 0.0 - 1 .1 mg/dL [facility] Calcium [Mass/Vol] 9.5 mg/dL Normal 8.9 - 11. 1 mg/dL [facility] Chloride [Moles/Vol] 104 mmol/L Normal 101 - 1 11 mmol/L [facility] Cholesterol [Mass/Vol] 208 mg/dL High 120 - 200 mg/dL [facility] Cholesterol in HDL [Mass/Vol] 80 mg/dL Invalid Interpretation Code [facility] Comment on above: Result Comment: '>= 60 LOW RISK' '<= 40 HIGH RISK' Cholesterol in LDL [Mass/Vol] 117 mg/dL Normal <=129mg/dL [facility] Cholesterol in VLDL [Mass/Vol] 15 mg/dL Normal 7 - 40 mg/dL [facility] CO2 [Moles/Vol] 30 mmol/L Normal 21 - 31 mmol/L [facility] Creatinine [Mass/Vol] 0.9 mg/dL Normal 0.5 - 1.3 mg/dL [facility] eGFR 69 mL/min/1.73 m2 Normal >=59mL/min /1. 73 m2 [facility] Globulin (S) [Mass/Vol] 3.1 g/dL Normal 1.4 - 4.0 gm/dL [facility] Glucose [Mass/Vol] 106 mg/dL Normal 55 - 199 mg/dL [facility] Potassium [Moles/Vol] 4.2 mmol/L Normal 3.5 - 5.3 mmol/L [facility] Protein [Mass/Vol] 7.4 g/dL Normal 6.0 - 7.8 gm/dL [facility] Sodium [Moles/Vol] 138 mmol/L Normal 135 - 145 mmol/L [facility] Triglyceride [Mass/Vol] 74 mg/dL Normal <=149mg/dL [facility] TSH Qn 2.62 m[IU]/L Normal 0.34 - 5.60 mcIU/mL [facility] Urea nitrogen [Mass/Vol] 22 mg/dL High 5 - 21 mg/dL [facility] Urea nitrogen/Creatinine [Mass ratio] 24 mg/mg High - [facility] CMPon 02-09-2024 Albumin [Mass/Vol] 4.3 g/dL Normal 3.3-5.0 [facility] Comment on above: Performed By: #### 2 [id number] #### [facility] [address] [place] [address] Albumin/Globulin (S) [Mass conc ratio] 1.4 Normal 1.1-2.2 [facility] Comment on above: Performed By: #### 2 [id number] #### [facility] [address] [place] [address] ALP [Catalytic activity/Vol] 61 Int._Unit/L Normal 21-98 [facility] Comment on above: Performed By: #### 2 [id number] #### [facility] [address] [place] [address] ALT No additional P-5'-P [Catalytic activity/Vol] 16 Int._Unit/L Normal 6-46 [facility] Comment on above: Performed By: #### 2 [id number] #### [facility] [address] [place] [address] Anion gap [Moles/Vol] 8 mmol/L Normal 6-16 [facility] Comment on above: Performed By: #### 2 [id number] #### [facility] [address] [place] [address] AST [Catalytic activity/Vol] 17 Int._Unit/L Normal 5-43 [facility] Comment on above: Performed By: #### 2 [id number] #### [facility] [address] [place] [address] Bilirubin [Mass/Vol] 0.7 mg/dL Normal 0.0-1.1 [facility] Comment on above: Performed By: #### 2 [id number] #### [facility] [address] [place] [address] Calcium [Mass/Vol] 9.5 mg/dL Normal 8.9-11.1 [facility] Comment on above: Performed By: #### 2 [id number] #### [facility] [address] [place] [address] Chloride [Moles/Vol] 104 mmol/L Normal 101-111 [facility] Comment on above: Performed By: #### 2 [id number] #### [facility] [address] [place] [address] CO2 [Moles/Vol] 30 mmol/L Normal 21-31 [facility] Comment on above: Performed By: #### 2 [id number] #### [facility] [address] [place] [address] Creatinine [Mass/Vol] 0.9 mg/dL Normal 0.5-1.3 [facility] Comment on above: Performed By: #### 2 [id number] #### [facility] [address] [place] [address] Globulin (S) [Mass/Vol] 3.1 g/dL Normal 1.4-4.0 [facility] Comment on above: Performed By: #### 2 [id number] #### [facility] [address] [place] [address] Glucose [Mass/Vol] 106 mg/dL Normal 55-199 [facility] Comment on above: Performed By: #### 2 [id number] #### [facility] [address] [place] [address] Potassium [Moles/Vol] 4.2 mmol/L Normal 3.5-5.3 [facility] Comment on above: Performed By: #### 2 [id number] #### [facility] [address] [place] [address] Protein [Mass/Vol] 7.4 g/dL Normal 6.0-7.8 [facility] Comment on above: Performed By: #### 2 [id number] #### [facility] [address] [place] [address] Sodium [Moles/Vol] 138 mmol/L Normal 135-145 [facility] Comment on above: Performed By: #### 2 [id number] #### [facility] [address] [place] [address] Urea nitrogen [Mass/Vol] 22 mg/dL High 5-21 [facility] Comment on above: Performed By: #### 2 [id number] #### [facility] [address] [place] [address] Urea nitrogen/Creatinine [Mass ratio] 24 No Units High 10-20 [facility] Comment on above: Performed By: #### 2 [id number] #### [facility] [address] [place] [address] HEMATOLOGYOrdered By: SYSTEM SYSTEM on 02-09-2024 Basophils/100 WBC (Bld) 0.7 % Normal 0.0 - 2.0 % Remisol Heme Basophils/Leukocytes Auto (Bld) [Pure # fraction] 0.0 E9/L Normal 0.0 - 0.2 E9/L [facility] Eosinophils (Bld) [#/Vol] 0.2 E9/L Normal 0.0 - 0.5 E9/L [facility] Eosinophils/100 WBC (Bld) 3.3 % Normal 0.0 - 8.0 % Remisol Heme Erythrocyte distribution width (RBC) [Ratio] 14.2 % Normal 10.9 - 14.2 % Rem[facility] Heme Hematocrit (Bld) [Volume fraction] 38.0 % Normal 34.0 - 46.0 % Remisol Heme Hemoglobin (Bld) [Mass/Vol] 13.4 g/dL Normal 12.0 - 16.0 gm/dL [facility] Lymphocytes (Bld) [#/Vol] 1.3 E9/L Normal 1.0 - 4.0 E9/L [facility] Lymphocytes/100 WBC (Bld) 20.9 % Normal 14.0 - 50.0 % Remisol Heme MCH (RBC) [Entitic mass] 32.8 pg Normal 27.0 - 34.0 pg Remisol Heme MCHC (RBC) [Mass/Vol] 35.2 g/dL Normal 31.4 - 36.0 gm/dL Remisol Heme MCV (RBC) [Entitic vol] 93.1 fL Normal 80.0 - 100.0 fL [facility]e Monocytes (Bld) [#/Vol] 0.7 E9/L Normal 0.2 - 1.0 E9/L Rem[facility] Heme Monocytes/100 WBC (Bld) 10.7 % Normal 4.0 - 14.0 % Rem[facility] Heme Neutrophils (Bld) [#/Vol] 3.9 E9/L Normal 2.0 - 7.5 E9/L [facility] Heme Neutrophils/100 WBC (Bld) 64.4 % Normal 36.0 - 75.0 % Rem[facility] Heme Platelet 250.0 E9/L Normal 150.0 - 500.0 E9/L Rem[facility] Heme Platelet mean volume (Bld) [Entitic vol] 7.6 fL Normal 6.4 - 10.8 fL Remisol Heme RBC (Bld) [#/Vol] 4.1 E12/L Low 4.3 - 5.9 E12/L [facility] WBC corrected for nucl RBC Auto (Bld) [#/Vol] 6.1 E9/L Normal 4.0 - 11.0 E9/L Rem[facility] Heme Lipid Panelon 02-09-2024 Cholesterol [Mass/Vol] 208 mg/dL High 120-200 [facility] Comment on above: Performed By: #### 2 [id number] #### [facility] [address] [place] [address] Cholesterol in HDL [Mass/Vol] 80 mg/dL Invalid Interpretation Code [facility] Comment on above: Result Comment: '>= 60 LOW RISK' '<= 40 HIGH RISK' Performed By: #### 2 [id number] #### [facility] [address] [place] [address] Cholesterol in LDL [Mass/Vol] 117 mg/dL Normal <=129 [facility] Comment on above: Performed By: #### 2 [id number] #### [facility] [address] [place] [address] Cholesterol in VLDL [Mass/Vol] 15 mg/dL Normal 7-40 [facility] Comment on above: Performed By: #### 2 [id number] #### [facility] [address] [place] [address] Triglyceride [Mass/Vol] 74 mg/dL Normal <=149 [facility] Comment on above: Performed By: #### 2 [id number] #### [facility] [address] [place] [address] TSH With T4fr Reflexon 02-08 TSH Qn 2.62 m[IU]/L Normal 0.34-5.60 [facility] Comment on above: Performed By: #### 1 [id number] #### [facility] [address] [place] [address] eGFRon 02-09-2024 eGFR 69 mL/min/1.73 m2 Normal >=59 [facility] Comment on above: Performed By: #### 1 [id number] #### [facility] [address] [place] [address] Ambulatory Visit Summaryon 0 12-22-2023 Ambulatory Visit Summary Ambulatory Visit Summary CAMILA GARCIA :1955 Visit Date:12/22/2023 Ambulatory Visit Instructions Your Diagnosis Osteoarthritis of right foot Lower limb region somatic dysfunction Arm somatic dysfunction Lumbar region somatic dysfunction Pelvic region somatic dysfunction Sacral region somatic dysfunction Segmental and somatic dysfunction of thoracic region Segmental dysfunction of rib cage BMI 20.0-20.9, adult Non-smoker Your Care Team Attending Physician - Efrain Munguia DO Primary Care Physician - Efrain Munguia DO This Is Your Medications List cyanocobalamin (Vitamin B12) cyclobenzaprine (cyclobenzaprine 10 mg Tab) ergocalciferol (Vitamin D) loratadine (loratadine 10 mg Tab) meloxicam (meloxicam 15 mg Tab) montelukast (Singulair 10 mg Tab) multivitamin with minerals (Multivitamins and Minerals) Procedures Performed Cholecystectomy, right foot hind and midfoot fusion. Discharge Vitals Heart Rate (Peripheral) 76 Blood Pressure 122/64 Height 178 cm Height 70 in Weight 64.6 kg Weight 142.12 lb BMI 20.39 What to do next You Need to Schedule the Following Appointments Follow Up with Efrain Munguia DO, FAM When: Within 4 weeks Comments: Repeat OMT Where: [address] [place] [address]- Medications What How Much When Why Instructions Unchanged cyanocobalamin (Vitamin B12) Unchanged cyclobenzaprine (cyclobenzaprine 10 mg Tab) 1 Tablets By Mouth 3 times a day as needed for for spasm Lumbar region somatic dysfunction Unchanged ergocalciferol (Vitamin D) By Mouth Unchanged loratadine (loratadine 10 mg Tab) 1 Tablets By Mouth Every day Unchanged meloxicam (meloxicam 15 mg Tab) Unchanged montelukast (Singulair 10 mg Tab) 10 Milligram By Mouth Once a day (in the evening) Intolerant to generic montelukast Unchanged multivitamin with minerals (Multivitamins and Minerals) Allergies No Known Allergies Problems Ongoing - Any problem that you are currently receiving treatment for. Arm somatic dysfunction Asthma Asthma Fracture Lower limb region somatic dysfunction Lumbar region somatic dysfunction Osteoarthritis of right foot Pelvic region somatic dysfunction Sacral region somatic dysfunction Segmental and somatic dysfunction of thoracic region Segmental dysfunction of rib cage Patient Survey You may receive a survey via text or e-mail asking about your office visit. Please share your experience with us by completing your survey. We appreciate your feedback and thank you for choosing us for your care. Normal [facility] Family Medicine Office/Clini c Noteon 12-22-2023 Family Medicine Office/Clinic Note Family Medicine Office/Clinic Note Chief Complaint OMT HPI Staff Patient here for OMT - Left hip/back Cyclobenzaprine was ordered at last visit, patient taken as directed. Declines any sided effects and notes slight improvement. Patient has only taken 4 times, she notes it has moved to her left upper thigh/groin area. Patient is wearing a brace now that has really improved the pain. - Patient did look into Singulair hansen and it is over $200. [place]: 07/22, repeat in 3 years [place]: 11/18/23, [facility] Pap: Dr. Kenny 2022 AMW: needs to schedule History of Present Illness Patient has a history of prior fracture of her right ankle, which was repaired with plates and screws. There is discussion of removing hardware, but she is concerned that this may be problematic as she has prior history of problems with surgery. She states that she has had some hip pain recently, she had podiatry provide a brace for plantar fasciitis which improved her ankle pain quite a bit. She has chronic pain of the ankle and has incidental problems of the associated hip. She had OMT at last visit, felt this was beneficial, and would like to continue with OMT. Review of Systems PHQ Score Initial Depression Screen Score: 0 SCORE ROS - Provider Constitutional: no fever, no chills Skin: no rash, no lesions ENMT: no ear pain, no sore throat, no congestion, no hoarseness. Respiratory: no shortness of breath, no cough, no wheezing. Cardiovascular: no chest pain, no palpitations, no edema. Gastrointestinal: no nausea, no vomiting, no diarrhea, Musculoskeletal: no back pain, no trauma. Neurologic: no headache, no dizziness, no numbness, no weakness. Psychiatric: no sleeping problems, no irritability, no mood swings/depression. Physical Exam Vitals & Measurements HR: 76(Peripheral) BP: 122/64 SpO2: 98% HT: 70 in HT: 178 cm WT: 64.6 kg WT: 142.12 lb BMI: 20.39 General: Well developed, well nourished, in no acute distress Head: Normocephalic/atraum atic Eyes: Pupils equal, round, and reactive to light. Sclerae normal, and extraocular movements intact Lungs: not assessed Cardio: Regular rate and rhythm, normal S1 and S2, Grade II/ RAFI noted, no rub Musculoskeletal: No deformity or scoliosis noted. Normal range of motion. Joints normal. No erythema, edema, effusion, or ecchymosis Extremity: No clubbing, cyanosis, edema, or deformity, with normal ROM in both upper and lower bilateral extremities Neurologic: Grossly normal Skin: No rash, petechiae, suspicious lesions Mental Status: Alert and oriented x3. Normal mood and affect Osteopathic: see procedures section Procedure Patient provided education about osteopathic manipulation and wishes to proceed. Patient consented for all procedures performed below. Patient advised to increase water intake by 16 fl. oz. for the next 48hrs unless instructed not to do so. Patient further advised they can take OTC NSAID's for any post-treatment tenderness for up to 48hrs unless instructed not to do so. Patient was satisfied with therapy, and left the office under their own power. Lumbar - Lumbar tenderpoint identified at L4 Anteriorly with counterstrain for 90 seconds with resolution of tenderness. Innominate - Pelvic innominate rotation on the left anteriorly, treated with muscle energy resolving rotation. - Pelvic innominate rotation on the right posteriorly, treated with muscle energy resolving rotation. - Pelvic outflare to the left, treated with muscle energy to resolution. - Pubic decompression achieved with muscle energy technique with improvement in mobility. Ribs - Rib raising applied bilaterally to ribs 1-8 in a supine position with improvement in rib motion and muscle tone. - Rib dysfunction from rib 1 to rib 6 treated with HVLA with resolution of the lesion. Sacrum - Sacral restriction on the left treated with supine articulatory technique with resolution of restriction. Thoracics - Thoracic paraspinal musculature tenderness bilaterally treated with perpendicular soft tissue technique with improvement in muscle tone. - Upper trapezius and levator scapulae restriction/tenderne ss noted bilaterally treated with direct inhibitory technique with improvement in muscle tone. Upper Extremity - Carpal row restriction bilaterally treated with articulatory carpal bone release with improvement in alignment and tension. - Teres major tenderness on palpation bilaterally treated with direct inhibitory technique to resolution for improvement of scapular blood flow. Assessment/Plan 1. Osteoarthritis of right foot (M19.071: Primary osteoarthritis, right ankle and foot) Secondary pain from old fracture s/p ORIF of the ankle, producing chronic somatic dysfunction. Improved with OMT, will continue regimen for improvement of overall functioning and quality of life considerations. Provided for patient today. 2. Lower limb region somatic dysfunction (M99.06: Segmental and somatic dysfunction of l (more content not included)... Normal [facility] Comment on above: Result Comment: Elec tronically Signed By: Efrain Munguia DO.tyler\Date and Time Signed: 12/22/23 07:34 EDT Ambulatory Visit Summaryon 0 11-24-2023 Ambulatory Visit Summary Ambulatory Visit Summary CAMILA GARCIA :1955 Visit Date:11/24/2023 Ambulatory Visit Instructions Your Diagnosis Osteoarthritis of right foot Lumbar region somatic dysfunction Pelvic region somatic dysfunction Sacral region somatic dysfunction Segmental and somatic dysfunction of thoracic region Segmental dysfunction of rib cage Arm somatic dysfunction BMI 20.0-20.9, adult Non-smoker Your Care Team Attending Physician - Efrain Munguia DO Primary Care Physician - Efrain Munguia DO This Is Your Medications List cyanocobalamin (Vitamin B12) cyclobenzaprine (cyclobenzaprine 10 mg Tab) ergocalciferol (Vitamin D) loratadine (loratadine 10 mg Tab) meloxicam (meloxicam 15 mg Tab) montelukast (Singulair 10 mg Tab) multivitamin with minerals (Multivitamins and Minerals) Procedures Performed Cholecystectomy, right foot hind and midfoot fusion. Discharge Vitals Heart Rate (Peripheral) 80 Blood Pressure 136/78 Height 178 cm Height 70 in Weight 65.6 kg Weight 144.32 lb BMI 20.7 What to do next Scheduled Follow-Up Appointments 2023 7:00 AM EDT With: Efrain Munguia DO Where: [facility] [address] [place] [address]- You Need to Schedule the Following Appointments Follow Up with Efrain Munguia DO, [facility] When: Within 4 weeks Comments: Repeat OMT Where: [address] [place] [address]- Medications What How Much When Why Instructions New cyclobenzaprine (cyclobenzaprine 10 mg Tab) 1 Tablets By Mouth 3 times a day as needed for for spasm Lumbar region somatic dysfunction Refills: 1 Pickup at [facility] Changed montelukast (Singulair 10 mg Tab) 10 Milligram By Mouth Once a day (in the evening) Intolerant to generic montelukast Pickup at [facility] Unchanged cyanocobalamin (Vitamin B12) Unchanged ergocalciferol (Vitamin D) By Mouth Unchanged loratadine (loratadine 10 mg Tab) 1 Tablets By Mouth Every day Unchanged meloxicam (meloxicam 15 mg Tab) Unchanged multivitamin with minerals (Multivitamins and Minerals) Pharmacy Information [facility]: [address] [place], [place] [id number] [phone] Allergies No Known Allergies Problems Ongoing - Any problem that you are currently receiving treatment for. Arm somatic dysfunction Asthma Asthma Fracture Lower limb region somatic dysfunction Lumbar region somatic dysfunction Osteoarthritis of right foot Pelvic region somatic dysfunction Sacral region somatic dysfunction Segmental and somatic dysfunction of thoracic region Segmental dysfunction of rib cage Patient Survey You may receive a survey via text or e-mail asking about your office visit. Please share your experience with us by completing your survey. We appreciate your feedback and thank you for choosing us for your care. Sayra Ennis [facility] Medicine Office/Clini c Noteon 11-24-2023 Family Medicine Office/Clinic Note Family Medicine Office/Clinic Note Chief Complaint OMT HPI Staff Patient here for OMT - left hip/back - Patient would like to discuss a muscle relaxer [place]: 07/22, repeat in 3 years [place]: 11/18/23, [facility] Pap: Dr. Kenny 2022 AMW: needs to schedule History of Present Illness Patient has a history of prior fracture of her right ankle, which was repaired with plates and screws. There is discussion of removing hardware, but she is concerned that this may be problematic as she has prior history of problems with surgery. She states that she laid on the floor with a book under her hip and rolled her hip, and felt her hip go back in last night. She has chronic pain of the ankle and has incidental problems of the associated hip. She had OMT at last visit, felt this was beneficial, and would like to continue with OMT. Review of Systems PHQ Score Initial Depression Screen Score: 0 SCORE ROS - Provider Constitutional: no fever, no chills Skin: no rash, no lesions ENMT: no ear pain, no sore throat, no congestion, no hoarseness. Respiratory: no shortness of breath, no cough, no wheezing. Cardiovascular: no chest pain, no palpitations, no edema. Gastrointestinal: no nausea, no vomiting, no diarrhea, Musculoskeletal: no back pain, no trauma. Neurologic: no headache, no dizziness, no numbness, no weakness. Psychiatric: no sleeping problems, no irritability, no mood swings/depression. Physical Exam Vitals & Measurements HR: 80(Peripheral) BP: 136/78 SpO2: 99% HT: 70 in HT: 178 cm WT: 65.6 kg WT: 144.32 lb BMI: 20.7 General: Well developed, well nourished, in no acute distress Head: Normocephalic/atraum atic Eyes: Pupils equal, round, and reactive to light. Sclerae normal, and extraocular movements intact Lungs: not assessed Cardio: Regular rate and rhythm, normal S1 and S2, Grade II/ RAFI noted, no rub Musculoskeletal: No deformity or scoliosis noted. Normal range of motion. Joints normal. No erythema, edema, effusion, or ecchymosis Extremity: No clubbing, cyanosis, edema, or deformity, with normal ROM in both upper and lower bilateral extremities Neurologic: Grossly normal Skin: No rash, petechiae, suspicious lesions Mental Status: Alert and oriented x3. Normal mood and affect Osteopathic: see procedures section Procedure Patient provided education about osteopathic manipulation and wishes to proceed. Patient consented for all procedures performed below. Patient advised to increase water intake by 16 fl. oz. for the next 48hrs unless instructed not to do so. Patient further advised they can take OTC NSAID's for any post-treatment tenderness for up to 48hrs unless instructed not to do so. Patient was satisfied with therapy, and left the office under their own power. Lumbar - Lumbar tenderpoint identified at L4 Anteriorly with counterstrain for 90 seconds with resolution of tenderness. Innominate - Pelvic innominate rotation on the left anteriorly, treated with muscle energy resolving rotation. - Pelvic innominate rotation on the right posteriorly, treated with muscle energy resolving rotation. - Pelvic outflare to the left, treated with muscle energy to resolution. - Pubic decompression achieved with muscle energy technique with improvement in mobility. Ribs - Rib raising applied bilaterally to ribs 1-8 in a supine position with improvement in rib motion and muscle tone. - Rib dysfunction from rib 1 to rib 6 treated with HVLA with resolution of the lesion. Sacrum - Sacral restriction on the left treated with supine articulatory technique with resolution of restriction. Thoracics - Thoracic paraspinal musculature tenderness bilaterally treated with perpendicular soft tissue technique with improvement in muscle tone. - Upper trapezius and levator scapulae restriction/tenderne ss noted bilaterally treated with direct inhibitory technique with improvement in muscle tone. Upper Extremity - Carpal row restriction bilaterally treated with articulatory carpal bone release with improvement in alignment and tension. - Teres major tenderness on palpation bilaterally treated with direct inhibitory technique to resolution for improvement of scapular blood flow. Assessment/Plan 1. Osteoarthritis of right foot (M19.071: Primary osteoarthritis, right ankle and foot) Secondary pain from old fracture s/p ORIF of the ankle, producing chronic somatic dysfunction. Improved with OMT, will continue regimen for improvement of overall functioning and quality of life considerations. Provided for patient today. 2. Lumbar region somatic dysfunction (M99.03: Segmental and somatic dysfunction of lumbar region) Evaluation and treatment of somatic dysfunction as per the procedures section. Ordered: cyclobenzaprine, 10 mg = 1 tab(s), Oral, TID, PRN for spasm, # 30 tab(s), Refills(s) 1, Pharmacy: [facility], 178, cm, 11/24/23 7:12:00 EDT, Height/Length Dosing, 65.6, kg, 11/24/23 7:12:00 EDT, Weight D (more content not included)... Normal [facility] Comment on above: Result Comment: Elec tronically Signed By: Efrain Munguia DO\.br\Date and Time Signed: 11/24/23 07:48 EDT MM screening mammo BI w/CADo n 11-18-2023 MM screening mammo BI w/CAD [facility] [address] [place] [address] Mammography Report Signed Patient: Camila Garcia MR#: [id number] : 1955 Acct:[id number] Age/Sex: 68 / F ADM Date: 11/18/23 Loc: [place] Room: Type: [facility] Attending Dr: Derrick Kenny DO Copies to: DO Derrick Araiza DO Ordering Provider: Derrick Kenny DO Date of Service: 11/18/23 MM/MM screening mammo BI w/CAD: Z12.31 CLINICAL DATA: Screening for malignancy. BILATERAL SCREENING MAMMOGRAMS - FULL FIELD DIGITAL WITH TOMOSYNTHESIS AND CAD Tomosynthesis craniocaudal and mediolateral oblique views of both breasts were obtained using low- dose digital technique. Comparison is made to prior studies from May 29, 2020 through June 25, 2022. This examination was reviewed with the aid of CAD. There are scattered fibroglandular densities. Scattered benign and vascular calcifications are visualized. There are no developing masses, typically malignant calcifications or architectural distortion. There has been no significant interval change. MM/MM screening mammo BI w/CAD IMPRESSION: NO MAMMOGRAPHIC EVIDENCE OF MALIGNANCY. ROUTINE FOLLOW-UP IS RECOMMENDED IN ONE YEAR. RESULT CODE: 2 Benign Findings(s) DENSITY CODE: 2 (approximately 25-50% glandular) FOLLOW UP: 1YR The false-negative rate of mammography is approximately 10-percent. Management of a palpable abnormality must be based on clinical grounds. Patient was entered into a reminder system with a target due date for the next mammogram. Impression dictated by: Armida Newberry M.D.11/18/2023 10:13 AM Dictation Location: [facility] Transcribed By: [facility] 11/18/23 1013 Dictated By: Armida Newberry MD 11/18/23 1009 Signed By: 11/18/23 1013 Normal [facility] Ambulatory Visit Summaryon 0 10-27-2023 Ambulatory Visit Summary Ambulatory Visit Summary CAMILA GARCIA :1955 Visit Date:10/27/2023 Ambulatory Visit Instructions Your Diagnosis Asthma Osteoarthritis of right foot Non-smoker BMI 20.0-20.9, adult Your Care Team Attending Physician - Efrain Munguia DO Primary Care Physician - RONN MARQUEZ DO This Is Your Medications List ergocalciferol (Vitamin D) loratadine (loratadine 10 mg Tab) meloxicam (meloxicam 15 mg Tab) montelukast (Singulair) multivitamin with minerals (Multivitamins and Minerals) Procedures Performed Cholecystectomy, right foot hind and midfoot fusion. Discharge Vitals Heart Rate (Peripheral) 63 Blood Pressure 110/62 Height 178 cm Height 70 in Weight 64.6 kg Weight 142.12 lb BMI 20.39 What to do next Scheduled Follow-Up Appointments 2023 7:00 AM EDT With: Efrain Munguia DO Where: [facility] Normal [facility] Family Medicine Office/Clini c Noteon 10-27-2023 Family Medicine Office/Clinic Note Family Medicine Office/Clinic Note Chief Complaint Est care HPI Staff Patient here to establish care/ she would like to discuss OMT for L hip Establish Care: History: Any previous diagnosis: Asthma and Arthritis History of seeing any specialist: Dr. Braswell for R foot When was your last doctors visit: 2022 Last provider: Dr. Marquez Any recent labs: none Health Maintenance UTD: Colonoscopy: 06/2022- every 3 years Mammogram: has it scheduled for 11/18/23 [facility] [place] Pelvic/pap: Dr. Kenny 2022 Acute: Current issues/complaints: would like back adjustment History of Present Illness Care History Patient last PCP was: Dr. Ronn Marquez Patient has a history of prior fracture of her right ankle, which was repaired with plates and screws. There is discussion of removing hardware, but she is concerned that this may be problematic as she has prior history of problems with surgery. Social Patient is a 68-year-old female Patient is currently Patient has no smoking history. Patient has no use of marijuana. Patient has never abused drugs or prescriptions. Patient has social alcohol use without abuse. Preventative Care Last physical - [facility] Last Labs - [facility] Last Pap - Aged out Last Mammogram - Scheduled 10/2023 Last Colonoscopy - 06/2022, due 2025 Review of Systems PHQ Score Initial Depression Screen Score: 0 SCORE ROS - Provider Constitutional: no fever, no chills Skin: no rash, no lesions ENMT: no ear pain, no sore throat, no congestion, no hoarseness. Respiratory: no shortness of breath, no cough, no wheezing. Cardiovascular: no chest pain, no palpitations, no edema. Gastrointestinal: no nausea, no vomiting, no diarrhea, Musculoskeletal: no back pain, no trauma. Neurologic: no headache, no dizziness, no numbness, no weakness. Psychiatric: no sleeping problems, no irritability, no mood swings/depression. Physical Exam Vitals & Measurements HR: 63(Peripheral) BP: 110/62 SpO2: 99% HT: 70 in HT: 178 cm WT: 64.6 kg WT: 142.12 lb BMI: 20.39 General: Well developed, well nourished, in no acute distress Head: Normocephalic/atraum atic Eyes: Pupils equal, round, and reactive to light. Sclerae normal, and extraocular movements intact Lungs: Normal respiratory effort and clear to auscultation Cardio: Regular rate and rhythm, normal S1 and S2, no murmur, no rub Musculoskeletal: No deformity or scoliosis noted. Normal range of motion. Joints normal. No erythema, edema, effusion, or ecchymosis Extremity: No clubbing, cyanosis, edema, or deformity, with normal ROM in both upper and lower bilateral extremities Neurologic: Grossly normal Skin: No rash, petechiae, suspicious lesions Mental Status: Alert and oriented x3. Normal mood and affect Osteopathic: see procedures section Procedure Patient provided education about osteopathic manipulation and wishes to proceed. Patient consented for all procedures performed below. Patient advised to increase water intake by 16 fl. oz. for the next 48hrs unless instructed not to do so. Patient further advised they can take OTC NSAID's for any post-treatment tenderness for up to 48hrs unless instructed not to do so. Patient was satisfied with therapy, and left the office under their own power. Lumbar - Lumbar tenderpoint identified at L4 Anteriorly with counterstrain for 90 seconds with resolution of tenderness. Innominate - Pelvic innominate rotation on the left anteriorly, treated with muscle energy resolving rotation. - Pelvic innominate rotation on the right posteriorly, treated with muscle energy resolving rotation. - Pelvic outflare to the left, treated with muscle energy to resolution. - Pubic decompression achieved with muscle energy technique with improvement in mobility. Ribs - Rib raising applied bilaterally to ribs 1-8 in a supine position with improvement in rib motion and muscle tone. - Rib dysfunction from rib 1 to rib 6 treated with HVLA with resolution of the lesion. Sacrum - Sacral restriction on the left treated with supine articulatory technique with resolution of restriction. Thoracics - Thoracic paraspinal musculature tenderness bilaterally treated with perpendicular soft tissue technique with improvement in muscle tone. - Upper trapezius and levator scapulae restriction/tenderne ss noted bilaterally treated with direct inhibitory technique with improvement in muscle tone. Upper Extremity - Carpal row restriction bilaterally treated with articulatory carpal bone release with improvement in alignment and tension. - Teres major tenderness on palpation bilaterally treated with direct inhibitory technique to resolution for improvement of scapular blood flow. Assessment/Plan 1. Asthma (J45.909: Unspecified asthma, uncomplicated) She has rarely used her inhaler for asthma. She is well controlled on singulair at this time, plan to continue. 2. Osteoarthritis of right foot (M19.071: Primary osteoarthritis, right ankle an (more content not included)... Normal [facility] Comment on above: Result Comment: Elec tronically Signed By: Efrain Munguia DO\Date and Time Signed: 10/27/23 09:30 EDT Complete Blood Count with Au to Diffon 07-06-2021 Basophils (Bld) [#/Vol] 0.04 10*3/uL Normal 0.00-0.20 [facility] Comment on above: Performed By: #### L IPD, CBCAD, CMP #### [facility] [address] [place] [address], [place] [id number] Basophils/100 WBC (Bld) 0.8 % Normal [facility] Comment on above: Performed By: #### L IPD, CBCAD, CMP #### [facility] [address], [place] [id number] Eosinophils (Bld) [#/Vol] 0.20 10*3/uL Normal 0.02-0.50 [facility] Comment on above: Performed By: #### L IPD, CBCAD, CMP #### [facility] [address], [place] [id number] Eosinophils/100 WBC (Bld) 4.1 % Normal [facility] Comment on above: Performed By: #### L IPD, CBCAD, CMP #### [facility] [address], [place] [id number] Erythrocyte distribution width (RBC) [Ratio] 13.1 % Normal 11.0-15.0 [facility] Comment on above: Performed By: #### L IPD, CBCAD, CMP #### [facility] [address], [place] [id number] Hematocrit (Bld) [Volume fraction] 40.6 % Normal 35.0-47.0 [facility] Comment on above: Performed By: #### L IPD, CBCAD, CMP #### [facility] [address], [place] [id number] Hemoglobin (Bld) [Mass/Vol] 13.3 g/dL Normal 11.6-15.5 [facility] Comment on above: Performed By: #### L IPD, CBCAD, CMP #### [facility] [address], [place] [id number] Lymphocytes (Bld) [#/Vol] 1.5 10*3/uL Normal 0.9-3.9 [facility] Comment on above: Performed By: #### L IPD, CBCAD, CMP #### [facility] [address], [place] [id number] Lymphocytes/100 WBC (Bld) 30.9 % Normal [facility] Comment on above: Performed By: #### L IPD, CBCAD, CMP #### [facility] [address], [place] [id number] MCH (RBC) [Entitic mass] 30.7 pg Normal 27.0-33.0 [facility] Comment on above: Performed By: #### L IPD, CBCAD, CMP #### [facility] [address], [place] [id number] MCHC (RBC) [Mass/Vol] 32.8 g/dL Normal 32.0-36.0 [facility] Comment on above: Performed By: #### L IPD, CBCAD, CMP #### [facility] [address], [place] [id number] MCV (RBC) [Entitic vol] 94 fL Normal 80-100 [facility] Comment on above: Performed By: #### L IPD, CBCAD, CMP #### [facility] [address], [place] [id number] Monocytes (Bld) [#/Vol] 0.5 10*3/uL Normal 0.2-0.9 [facility] Comment on above: Performed By: #### L IPD, CBCAD, CMP #### [facility] [address], [place] [id number] Monocytes/100 WBC (Bld) 9.8 % Normal [facility] Comment on above: Performed By: #### L IPD, CBCAD, CMP #### [facility] [address], [place] [id number] Neutrophils (Bld) [#/Vol] 2.7 10*3/uL Normal 1.5-7.8 [facility] Comment on above: Performed By: #### L IPD, CBCAD, CMP #### [facility] [address], [place] [id number] Neutrophils/100 WBC (Bld) 54.4 % Normal [facility] Comment on above: Performed By: #### L IPD, CBCAD, CMP #### [facility] [address], [place] [id number] Platelet mean volume (Bld) [Entitic vol] 9.90 fL Normal 7.50-12.50 [facility] Specialist Comment on above: Performed By: #### L IPD, CBCAD, CMP #### [facility] [address], [place] [id number] Platelets (Bld) [#/Vol] 245 10*3/uL Normal 140-400 [facility] Comment on above: Performed By: #### L IPD, CBCAD, CMP #### [facility] [address], [place] [id number] RBC (Bld) [#/Vol] 4.33 10*6/uL Normal 3.90-5.[address] [facility] Specialist Comment on above: Performed By: #### L IPD, CBCAD, CMP #### [facility] [address], [place] [id number] RDW-SD 44.8 fL Normal 37.0-50.0 [facility] Comment on above: Performed By: #### L IPD, CBCAD, CMP #### [facility] [address], [place] [id number] WBC (Bld) [#/Vol] 4.9 10*3/uL Normal 3.8-11.0 [facility] Comment on above: Performed By: #### L IPD, CBCAD, CMP #### [facility] [address], [place] [id number] Comprehensive Metabolic Pane hilary 07-06-2021 Albumin [Mass/Vol] 4.5 g/dL Normal 3.6-5.1 [facility] Comment on above: Performed By: #### L IPD, CBCAD, CMP #### [facility] [address], [place] [id number] Albumin/Globulin [Mass ratio] 2.0 {ratio} Normal 1.0-2.5 [facility] Comment on above: Performed By: #### L IPD, CBCAD, CMP #### [facility] [address], [place] [id number] ALP [Catalytic activity/Vol] 63 U/L Normal 35-119 [facility] Comment on above: Performed By: #### L IPD, CBCAD, CMP #### [facility] [address], [place] [id number] ALT [Catalytic activity/Vol] 13 U/L Normal 6-33 [facility] Comment on above: Result Comment: 04/01 Female reference range changed. Performed By: #### L IPD, CBCAD, CMP #### [facility] [address], [place] [id number] Anion gap [Moles/Vol] 15 mmol/L Normal 12-20 [facility] Comment on above: Result Comment: Effe ctive 05/07/2019 reference range changed. Performed By: #### L IPD, CBCAD, CMP #### [facility] [address], [place] [id number] AST [Catalytic activity/Vol] 18 U/L Normal 9-34 [facility] Comment on above: Performed By: #### L IPD, CBCAD, CMP #### [facility] [address], [place] [id number] Bilirubin [Mass/Vol] 0.44 mg/dL Normal 0.30-1.20 [facility] Comment on above: Performed By: #### L IPD, CBCAD, CMP #### [facility] [address] [place] [address], [place] [id number] BUN/CREA 27 Ratio High 6-22 [facility] Comment on above: Performed By: #### L IPD, CBCAD, CMP #### [facility] [address], [place] [id number] Calcium [Mass/Vol] 9.7 mg/dL Normal 8.6-10.2 [facility] Comment on above: Performed By: #### L IPD, CBCAD, CMP #### [facility] [address] [place] [address], [place] [id number] Chloride [Moles/Vol] 107 mmol/L Normal 98-107 [facility] Comment on above: Performed By: #### L IPD, CBCAD, CMP #### [facility] [address], [place] [id number] CO2 [Moles/Vol] 26 mmol/L Normal 20-31 [facility] Comment on above: Performed By: #### L IPD, CBCAD, CMP #### [facility] [address], [place] [id number] Creatinine [Mass/Vol] 0.8 mg/dL Normal 0.6-1.4 [facility] Specialist Comment on above: Performed By: #### L IPD, CBCAD, CMP #### [facility] [address], [place] [id number] eGFRAA 89 mL/min/1.73m2 Normal >60 [facility] Special[facility] Comment on above: Performed By: #### L IPD, CBCAD, CMP #### [facility] [address], [place] [id number] eGFRNAA 74 mL/min/1.73m2 Normal >60 [facility] Comment on above: Performed By: #### L IPD, CBCAD, CMP #### [facility] [address] [place] [address], [place] [id number] Globulin (S) [Mass/Vol] 2.2 g/dL Normal 1.9-3.7 [facility] Comment on above: Performed By: #### L IPD, CBCAD, CMP #### [facility] [address], [place] [id number] Glucose [Mass/Vol] 99 mg/dL Normal 65-99 [facility] Comment on above: Result Comment: For FASTING Glucose --- ADA reference ranges: Normal 65-99 mg/dl Prediabetes 100-125 Diabetes >/= 126 Performed By: #### L IPD, CBCAD, CMP #### [facility] [address], [place] [id number] Potassium [Moles/Vol] 4.3 mmol/L Normal 3.5-5.5 [facility] Comment on above: Performed By: #### L IPD, CBCAD, CMP #### [facility] [address], [place] [id number] Protein [Mass/Vol] 6.7 g/dL Normal 6.1-8.1 [facility] Comment on above: Performed By: #### L IPD, CBCAD, CMP #### [facility] [address], [place] [id number] Sodium [Moles/Vol] 144 mmol/L Normal 135-146 [facility] Comment on above: Performed By: #### L IPD, CBCAD, CMP #### [facility] [address], [place] [id number] Urea nitrogen [Mass/Vol] 21 mg/dL Normal 7-25 [facility] Comment on above: Performed By: #### L IPD, CBCAD, CMP #### [facility] [address], [place] [id number] Lipid Panelon 07-06-2021 Cholesterol [Mass/Vol] 207 mg/dL High 125-200 [facility] Comment on above: Result Comment: Low risk < 200mg/dL Borderline risk 201-239 mg/dl High risk > or equal to 240 Performed By: #### L IPD, CBCAD, CMP #### [facility] [address], [place] [id number] Cholesterol in HDL [Mass/Vol] 89 mg/dL Normal >40 [facility] Comment on above: Result Comment: High Cardiovascular Risk HDL <40 mg/dL Low Cardiovascular Risk HDL > or equal to 60 mg/dl Performed By: #### L TJ, CBCAD, CMP #### [facility] [address], [place] [id number] Cholesterol in LDL [Mass/Vol] 109 mg/dL Normal [facility] Comment on above: Result Comment: LDL ATP III CLASSIFICATION LDL less than 100 mg/dl Optimal LDL 100-129 mg/dl Near or above optimal LDL 130-159 Borderline high LDL 160-189 High LDL greater than 189 mg/dl Very High Performed By: #### L IPD, CBCAD, CMP #### [facility] [address], [place] [id number] Cholesterol in VLDL [Mass/Vol] 9 mg/dL Normal [facility] Comment on above: Performed By: #### L IPD, CBCAD, CMP #### [facility] [address], [place] [id number] Cholesterol.total/Cho lesterol in HDL [Mass ratio] 2 {ratio} Normal [facility] Comment on above: Performed By: #### L IPD, CBCAD, CMP #### [facility] [address], [place] [id number] Triglyceride [Mass/Vol] 46 mg/dL Normal 30-150 [facility] Comment on above: Result Comment: TRIG ATPIII CLASSIFICATIONS TRIG less than 150 mg/dl Normal TRIG 150-199 mg/dl Borderline High TRIG 200-500 mg/dl High TRIG greather than 500 mg/dl Very High Performed By: #### L IPD, CBCAD, CMP #### [facility] [address], [place] [id number] Microalbumin (w/o Creat)on 0 07-06-2021 mALB <1.2 Low [facility] Comment on above: Result Comment: mALB reference range not established. Performed By: #### m ALB #### [facility] [address], [place] [id number] CT ANKLE RT WO CONon 020 CT ANKLE RT WO CON EXAMINATION: CT ANKLE RT WO CON HISTORY: Arthritis of right ankle COMPARISON: No relevant comparison available. TECHNIQUE: Multi-planar CT images were created without IV contrast. Dose reduction techniques were achieved by using automated exposure control and/or adjustment of mA and/or kV according to patient size and/or use of iterative reconstruction technique. FINDINGS: BONES: No acute fracture or dislocation. Diffuse permeative pattern of the bones consistent with osteopenia. Well-circumscribed 2 cm lytic lesion along the posterior medial tibial plateau with a narrow zone of transition. Severe osteoarthropathy of the midfoot and hindfoot with [id number] articulation throughout as well as bony remodeling and extensive scalp. Subchondral cystic changes. Fusion of the talocalcaneal joint with 2 cannulated lag screws. Fusion of the midfoot hindfoot with a dorsal plate and multiple screws. SOFT TISSUES: Moderate subcutaneous edema of the ankle and foot EFFUSION: None visible. OTHER: Negative. IMPRESSION: Severe arthritis of the midfoot and hindfoot with internal fixation as detailed above Diffuse osteopenia Subchondral 2 cm lytic lesion of the medial posterior tibial plateau Electronically authenticated by: JESSICA ULRICH Date: 2020-01-04 10:27 Normal [facility] DIGITAL DIAGNOSTIC W OR WO CAD RIGHTon 02-22-[address] [facility] DIGITAL DIAGNOSTIC W OR WO CAD RIGHT HISTORY: Probably benign findings on prior mammogram. Followup. TECHNIQUE: Bilateral digital screening mammogram with CAD. FINDINGS: Right breast 2 views, show heterogeneously dense fibroglandular tissue, which may obscure small masses. The area of concern on prior mammograms is not separately identifiable. No change from prior studies, the most recent of 08/17/2018. Suspicious calcifications: None. Suspicious mass: None. Benign calcifications: None. (If skin markers were applied, circles represent skin lesions and linear markers represent scars.) IMPRESSION: The patient can return to screening mammography. The findings were discussed with the patient. BI-RADS 1 - Negative, no evidence of malignancy. Normal interval followup in 12 months. OVERALL ASSESSMENT- NEGATIVE A letter of notification will be sent to the patient regarding the results. Interpreted by: Brayan Smalls Jr., MD Signed by: Brayan Smalls Jr., MD 02/22/19 Final result Normal [facility] DIGITAL DIAGNOSTIC W OR WO CAD RIGHTOrdered By: Wiliam Jones on 02-22-2019 The patient can return to screening mammography. The findings were discussed with the patient. BI-RADS 1 - Negative, no evidence of malignancy. Normal interval followup in 12 months. OVERALL ASSESSMENT- NEGATIVE A letter of notification will be sent to the patient regarding the results. [place], [place] HISTORY: Probably benign findings on prior mammogram. Followup. TECHNIQUE: Bilateral digital screening mammogram with CAD. FINDINGS: Right breast 2 views, show heterogeneously dense fibroglandular tissue, which may obscure small masses. The area of concern on prior mammograms is not separately identifiable. No change from prior studies, the most recent of 08/17/2018. Suspicious calcifications: None. Suspicious mass: None. Benign calcifications: None. (If skin markers were applied, circles represent skin lesions and linear markers represent scars.) [place], [place] Octavio, [facility] Incoming Radiant Results From [employer] - 02/22/2019 9:36 AM EDT HISTORY: Probably benign findings on prior mammogram. Followup. TECHNIQUE: Bilateral digital screening mammogram with CAD. FINDINGS: Right breast 2 views, show heterogeneously dense fibroglandular tissue, which may obscure small masses. The area of concern on prior mammograms is not separately identifiable. No change from prior studies, the most recent of 08/17/2018. Suspicious calcifications: None. Suspicious mass: None. Benign calcifications: None. (If skin markers were applied, circles represent skin lesions and linear markers represent scars.) IMPRESSION: The patient can return to screening mammography. The findings were discussed with the patient. BI-RADS 1 - Negative, no evidence of malignancy. Normal interval followup in 12 months. OVERALL ASSESSMENT- NEGATIVE A letter of notification will be sent to the patient regarding the results. [facility] [place], [place] [facility] DIGITAL DIAGNOSTIC W OR WO CAD RIGHTon 08-17-[address] [facility] DIGITAL DIAGNOSTIC W OR WO CAD RIGHT HISTORY: Abnormal screening mammogram COMPARISON: 08/07/2018, 06/25/2016 screening mammogram. FINDINGS: 90 degree mediolateral and coned compression CC and MLO views of the right breast and right breast ultrasound shows the area of concern on the prior mammogram compressed out fairly well and showed no abnormality on ultrasound. At this point this is considered probably benign and can be followed up to ensure stability with a six-month two-view mammogram. IMPRESSION: BI-RADS 3 - Findings are probably benign. A short interval followup is recommended in 6 months. OVERALL ASSESSMENT- PROBABLY BENIGN A letter of notification will be sent to the patient regarding the results. The findings were discussed with the patient. A six-month follow up two-view diagnostic mammogram is recommended to ensure stability. Interpreted by: Brayan Smalls Jr., MD Signed by: Brayan Smalls Jr., MD 08/17/[address] [facility] US BREAST COMPLETE RIGHTon 0 08-17-2018 US BREAST COMPLETE RIGHT HISTORY: Abnormal screening mammogram COMPARISON: 08/07/2018, 06/25/2016 screening mammogram. FINDINGS: 90 degree mediolateral and coned compression CC and MLO views of the right breast and right breast ultrasound shows the area of concern on the prior mammogram compressed out fairly well and showed no abnormality on ultrasound. At this point this is considered probably benign and can be followed up to ensure stability with a six-month two-view mammogram. IMPRESSION: BI-RADS 3 - Findings are probably benign. A short interval followup is recommended in 6 months. OVERALL ASSESSMENT- PROBABLY BENIGN A letter of notification will be sent to the patient regarding the results. The findings were discussed with the patient. A six-month follow up two-view diagnostic mammogram is recommended to ensure stability. Interpreted by: Brayan Smalls Jr., MD Signed by: Brayan Smalls Jr., MD 08/17/18 Final result Normal [facility] DIGITAL SCREEN W OR WO C AD BILATERALon 08-08-2018 [facility] DIGITAL SCREEN W OR WO CAD BILATERAL HISTORY: Screening. TECHNIQUE: Bilateral digital mammogram with CAD. FINDINGS: Two views of each breast show heterogeneously dense fibroglandular tissue, which may obscure small masses. Compared to prior studies, the most recent of 06/25/2016 from [facility], there is a new focal asymmetry in the central right breast 1 cm in diameter 5.8 cm from the nipple for which cone compression views in the CC and MLO projection, 90 degree mediolateral and possibly a right breast ultrasound are needed for further evaluation, if the area does not compress out. Suspicious calcifications: None. Benign calcifications: Bilaterally, without significant change. (If skin markers were applied, circles represent skin lesions and linear markers represent scars.) IMPRESSION: BI-RADS 0 - Need additional imaging evaluation at this time. OVERALL ASSESSMENT- NEED ADDITIONAL IMAGING EVALUATION. A letter of notification will be sent to the patient regarding the results. Right diagnostic mammogram and possibly a breast ultrasound needed to evaluate a new focal asymmetry in the central right breast. Interpreted by: Brayan Smalls Jr., MD Signed by: Brayan Smalls Jr., MD 08/08/[address] [facility] Cytologyon 07-18-2018 Cytology (NOTE) [id number] [facility] [employer] [facility] ANATOMIC PATHOLOGY [address] [place] [address]. [place] [id number] GYNECOLOGIC CYTOLOGY REPORT Patient Name: CAMILA GARCIA MR#: [id number] Specimen #[id number] Source: 1: Cervical material, (ThinPrep vial, Imaging-assisted review) Clinical History Z12.4 Encounter for screening for malignant neoplasm of cervix High Risk HPV DNA testing is requested if the diagnosis is ASC-US INTERPRETATION Cervical material, (ThinPrep vial, Imaging-assisted review): Specimen Adequacy: Satisfactory for evaluation. Descriptive Diagnosis: Negative for intraepithelial lesion or malignancy. Parking Enforcement Technician: JADE Shriley(ASCP) Electronically Signed Out landen/08/02/[address] [facility] Comment on above: Performed By: #### P PPVP #### [facility] [address] [place] [address] Special Events Coordinator: Tad Tracy MD Vital Signs Date Time Vital Sign Value Performing Clinician Facility 06-11-2024 13:00-0500 Diastolic blood pressure 62 mm[Hg] Sunday Bhakta [facility] 06-11-2024 13:00-0500 Heart rate 78 /min Sunday Bhakta [facility] 06-11-2024 13:00-0500 Respiratory rate 20 /min Sunday Bhakta [facility] 06-11-2024 13:00-0500 Systolic blood pressure 100 mm[Hg] Sunday Bhakta [facility] 06-11-2024 12:27-0500 Body temperature 97.7 [degF] Sunday Bhakta [facility] 06-11-2024 12:27-0500 Diastolic blood pressure 66 mm[Hg] Sunday Bhakta [facility] 06-11-2024 12:27-0500 Heart rate 75 /min Sunday Bhakta [facility] 06-11-2024 12:27-0500 Mean blood pressure 77 mm[Hg] Sunday Bhakta [facility] 06-11-2024 12:27-0500 Respiratory rate 29 /min Sunday Bhakta [facility] 06-11-2024 12:27-0500 SaO2% (BldA) [Mass fraction] 98 % Sunday Bhakta [facility] 06-11-2024 12:27-0500 Systolic blood pressure 98 mm[Hg] Sunday Bhakta [facility] 06-11-2024 12:15-0500 Diastolic blood pressure 56 mm[Hg] Sunday Bhakta [facility] 06-11-2024 12:15-0500 Heart rate 67 /min Sunday [facility]ak[facility] 06-11-2024 12:15-0500 Mean blood pressure 70 mm[Hg] Sunday [facility] 06-11-2024 12:15-0500 Respiratory rate 16 /min Sunday [facility]ak[facility] 06-11-2024 12:15-0500 SaO2% (BldA) [Mass fraction] 100 % Sunday [facility] 06-11-2024 12:15-0500 Systolic blood pressure 97 mm[Hg] Sunday Bhakta [facility] 06-11-2024 12:10-0500 Mean blood pressure 66 mm[Hg] Sunday [facility] 06-11-2024 11:57-0500 Blood Pressure Location Sunday [facility] 06-11-2024 11:57-0500 Body temperature 97.34 [degF] Sunday Bhakta [facility] 06-11-2024 11:45-0500 Respiratory rate 15 /min Sunday [facility] 06-11-2024 11:39-0500 Respiratory rate 15 /min Sunday [facility]ak[facility] 06-11-2024 11:35-0500 Respiratory rate 15 /min Sunday [facility] 06-11-2024 08:18-0500 Blood Pressure Location Sunday Bhakta [facility] 06-11-2024 08:18-0500 Heart rate 84 /min Sunday [facility]ak[facility] 06-11-2024 08:18-0500 Mean blood pressure 88 mm[Hg] Sunday [facility]akta [facility] 06-11-2024 08:16-0500 Body temperature 98.06 [degF] Sunday Bhakta [facility] 06-11-2024 08:16-0500 Blood Pressure Location Sunday Bhakta [facility] 06-11-2024 08:16-0500 Mean blood pressure 93 mm[Hg] Sunday Bhakta [facility] 05-15-2024 10:32-0500 Body height 175.3 cm Sunday Bhakta DO Work Phone: [facility] 05-15-2024 10:32-0500 Body mass index (BMI) [Ratio] 20.67 kg/m2 Sunday Bhakta DO Work Phone: [facility] 05-15-2024 10:32-0500 Body weight 63.5 kg Sunday Mary DO Work Phone: [facility] 03-27-2024 14:19-0500 Body height 175.3 cm Sunday Bhakta DO Work Phone: [facility] 03-27-2024 14:19-0500 Body mass index (BMI) [Ratio] 20.67 kg/m2 Sunday Bhakta DO Work Phone: [facility] 03-27-2024 14:19-0500 Body temperature 97.11 [degF] Sunday Mary DO Work Phone: [facility] 03-27-2024 14:19-0500 Body weight 63.5 kg Sunday Bhakta DO Work Phone: [facility] 03-19-2024 07:18-0500 Heart rate 74 /min Sunday [facility]ak[facility] 03-19-2024 07:18-0500 SaO2% (BldA) [Mass fraction] 99 % Sunday [facility]akta [facility] 03-19-2024 07:17-0500 Diastolic blood pressure 71 mm[Hg] Sunday [facility] 03-19-2024 07:17-0500 Mean blood pressure 97 mm[Hg] Sunday [facility] 03-19-2024 07:17-0500 Systolic blood pressure 148 mm[Hg] Sunday [facility] 03-19-2024 07:17-0500 Respiratory rate 18 /min Sunday [facility] 03-19-2024 07:11-0500 Blood Pressure Location Sunday [facility] 03-19-2024 07:11-0500 Diastolic blood pressure 70 mm[Hg] Sunday [facility] 03-19-2024 07:11-0500 Heart rate 83 /min Sunday [facility] 03-19-2024 07:11-0500 Respiratory rate 18 /min Sunday [facility] 03-19-2024 07:11-0500 SaO2% (BldA) [Mass fraction] 95 % Sunday [facility] 03-19-2024 07:11-0500 Systolic blood pressure 136 mm[Hg] Sunday [facility] 03-19-2024 07:04-0500 Blood Pressure Location Sunday [facility] 03-19-2024 07:04-0500 Diastolic blood pressure 65 mm[Hg] Sunday [facility] 03-19-2024 07:04-0500 Heart rate 86 /min Sunday [facility]ak[facility] 03-19-2024 07:04-0500 Respiratory rate 18 /min Sunday [facility]ak[facility] 03-19-2024 07:04-0500 SaO2% (BldA) [Mass fraction] 95 % Sunday [facility]akta [facility] 03-19-2024 07:04-0500 Systolic blood pressure 127 mm[Hg] Sunday [facility]akta [facility] 03-19-2024 06:24-0500 Body temperature 97.7 [degF] Sunday [facility]akta [facility] 03-19-2024 06:23-0500 Blood Pressure Location Sunday [facility]akta [facility] 03-19-2024 06:23-0500 Mean blood pressure 84 mm[Hg] Sunday [facility]akta [facility] 02-10-2024 08:33-0400 Body height 172.7 cm Sunday Bhakta DO Work Phone: [facility] 02-10-2024 08:33-0400 Body mass index (BMI) [Ratio] 21.29 kg/m2 Sunday Bhakta DO Work Phone: [facility] 02-10-2024 08:33-0400 Body weight 63.5 kg Sunday Bhakta DO Work Phone: [facility] 12-22-2023 07:00-0400 Blood Pressure Location Efrain Link [facility] 12-22-2023 07:00-0400 Diastolic blood pressure 64 mm[Hg] [facility] Link [facility] 12-22-2023 07:00-0400 Heart rate 76 /min E[facility] Link [facility] 12-22-2023 07:00-0400 SaO2% (BldA) [Mass fraction] 98 % [facility] 12-22-2023 07:00-0400 Systolic blood pressure 122 mm[Hg] [facility] Link [facility] 11-24-2023 07:07-0400 Blood Pressure Location [facility] Link [facility] 11-24-2023 07:07-0400 Diastolic blood pressure 78 mm[Hg] E[facility] Link [facility] 11-24-2023 07:07-0400 Heart rate 80 /min [facility] Link [facility] 11-24-2023 07:07-0400 SaO2% (BldA) [Mass fraction] 99 % E[facility]rain Link [facility] 11-24-2023 07:07-0400 Systolic blood pressure 136 mm[Hg] [facility] Link [facility] 10-27-2023 07:09-0400 Blood Pressure Location E[facility] Link [facility] 10-27-2023 07:09-0400 Diastolic blood pressure 62 mm[Hg] [facility] 10-27-2023 07:09-0400 Heart rate 63 /min E[facility]rain Link [facility] 10-27-2023 07:09-0400 SaO2% (BldA) [Mass fraction] 99 % [facility] Link [facility] 10-27-2023 07:09-0400 Systolic blood pressure 110 mm[Hg] [facility] Link [facility] 01-19-2022 12:00-0400 Body height 175.26 cm Angelique Gracie Other [place] Other 01-19-2022 12:00-0400 Body mass index (BMI) [Ratio] 20.52 kg/m2 Angelique Gracie Other [place] Other 01-19-2022 12:00-0400 Body temperature 98.3 [degF] Angelique Gracie Other [place] Other 01-19-2022 12:00-0400 Body weight 63.05 kg Angelique Gracie Other [place] Other 01-19-2022 12:00-0400 Diastolic blood pressure 69 mm[Hg] Angelique Gracie Other [place] Other 01-19-2022 12:00-0400 Respiratory rate 20 /min Angelique Gracie Other [place] Other 01-19-2022 12:00-0400 SaO2% (BldA) [Mass fraction] 98 % Angelique Gracie Other [place] Other 01-19-2022 12:00-0400 Systolic blood pressure 121 mm[Hg] Angelique Gracie Other [place] Other Encounters Encounter Date Encounter Type Care Provider Facility Start: 03-19-2025 ambulatory DO Efrain Munguia Facility :[facility] Start: 08-29-2024 End: 08-29-2024 Admission to same day surgery center Ronna Vu PT Work Phone: [facility] Comment on above: Primary osteoarthrit is of left hip (Primary Dx); Aftercare following left hip joint replacement surgery Start: 08-29-2024 End: 08-29-2024 ambulatory Ronna Vu PT Work Phone: [facility] Start: 08-13-2024 End: 08-13-2024 Patient encounter procedure Ronn Marquez DO Work Phone: [facility] Work Phone: Start: 08-13-2024 End: 08-13-2024 ambulatory Ronn Marquez DO Work Phone: [facility] Work Phone: Start: 08-10-2024 End: 08-10-2024 Bamboo flowsheet Kvng Young GUIDE DOG MOBILITY INSTRUCTOR [facility] Start: 08-10-2024 End: 08-10-2024 Bamboo flowsheet Kvng Young GUIDE DOG MOBILITY INSTRUCTOR [facility] Start: 08-10-2024 End: 08-10-2024 Admission to same day surgery center Kvng Young GUIDE DOG MOBILITY INSTRUCTOR [facility] Comment on above: Primary osteoarthrit is of left hip (Primary Dx); Aftercare following left hip joint replacement surgery Start: 08-10-2024 End: 08-10-2024 ambulatory Kvng Hisey GUIDE DOG MOBILITY INSTRUCTOR [facility] Start: 08-07-2024 End: 08-07-2024 Bamboo flowsheet Kvng Young GUIDE DOG MOBILITY INSTRUCTOR [facility] Start: 08-07-2024 End: 08-07-2024 Bamboo flowsheet Kvng Young GUIDE DOG MOBILITY INSTRUCTOR [facility] Start: 08-07-2024 End: 08-07-2024 Admission to same day surgery center Kvng Eisenbergey GUIDE DOG MOBILITY INSTRUCTOR [facility] Comment on above: Primary osteoarthrit is of left hip (Primary Dx); Aftercare following left hip joint replacement surgery Start: 08-07-2024 End: 08-07-2024 ambulatory Kvng ey GUIDE DOG MOBILITY INSTRUCTOR [facility] Start: 08-03-2024 End: 08-03-2024 Admission to same day surgery center Kvng Eisenbergey GUIDE DOG MOBILITY INSTRUCTOR [facility] Comment on above: Primary osteoarthrit is of left hip (Primary Dx); Aftercare following left hip joint replacement surgery Start: 08-03-2024 End: 08-03-2024 ambulatory Kvng ey GUIDE DOG MOBILITY INSTRUCTOR [facility] Start: 08-01-2024 End: 08-01-2024 Admission to same day surgery center Kvng Eisenbergey GUIDE DOG MOBILITY INSTRUCTOR [facility] Comment on above: Primary osteoarthrit is of left hip (Primary Dx); Aftercare following left hip joint replacement surgery Start: 08-01-2024 End: 08-01-2024 ambulatory Kvng ey GUIDE DOG MOBILITY INSTRUCTOR [facility] Start: 07-27-2024 End: 07-27-2024 Admission to same day surgery center Ronna Vu PT Work Phone: [facility] Comment on above: Primary osteoarthrit is of left hip (Primary Dx); Aftercare following left hip joint replacement surgery Start: 07-27-2024 End: 07-27-2024 ambulatory Ronna Vu PT Work Phone: [facility] Start: 07-24-2024 End: 07-24-2024 ambulatory KVNG YOUNG Not Available Start: 07-19-2024 End: 07-19-2024 ambulatory SHAHID EDOUARD Not Available Start: 07-13-2024 End: 07-13-2024 ambulatory KVNG YOUNG Not Available Start: 07-11-2024 End: 07-11-2024 ambulatory KVNG YOUNG Not Available Start: 07-10-2024 End: 07-10-2024 ambulatory SUNDAY Latif BHAKTA Not Available Start: 07-09-2024 End: 07-09-2024 ambulatory RONNA VU Not Available Start: 07-06-2024 End: 07-06-2024 ambulatory KVNG YOUNG Not Available Start: 07-04-2024 End: 07-04-2024 Admission to same day surgery center Kvng Young GUIDE DOG MOBILITY INSTRUCTOR [facility] Comment on above: Primary osteoarthrit is of left hip (Primary Dx); Aftercare following left hip joint replacement surgery Start: 07-04-2024 End: 07-04-2024 ambulatory Kvng Young GUIDE DOG MOBILITY INSTRUCTOR [facility] Start: 2024 End: 2024 Bamboo flowsheet Ronna Vu PT Work Phone: [facility] Start: 2024 End: 2024 Bamboo flowsheet Ronna Vu PT Work Phone: [facility] Start: 2024 End: 2024 Admission to same day surgery center Ronna Vu PT Work Phone: [facility] Comment on above: Primary osteoarthrit is of left hip (Primary Dx); Aftercare following left hip joint replacement surgery Start: 2024 End: 2024 ambulatory Ronna Vu PT Work Phone: [facility] Start: 06-11-2024 End: 06-11-2024 Clinisync Result Encounter Sunday Bhakta DO Work Phone: [facility] Unsolicited Start: 06-11-2024 End: 06-11-2024 Clinisync Result Encounter Sunday Bhakta DO Work Phone: [facility] Unsolicited Start: 06-11-2024 End: 06-11-2024 Admission to same day surgery center Sunday Bhakta [facility] Start: 06-11-2024 End: 06-11-2024 ambulatory Sunday Bhakta Facility:[facility] Start: 05-31-2024 End: 05-31-2024 Bamboo flowsheet Abigail Ruvalcaba PT Work Phone: [facility] Start: 05-31-2024 End: 05-31-2024 Bamboo flowsheet Abigail Ruvalcaba PT Work Phone: [facility] Start: 05-31-2024 End: 05-31-2024 ambulatory Abigail Ruvalcaba PT Work Phone: [facility] Comment on above: Primary osteoarthrit is of left hip (Primary Dx) Start: 05-25-2024 End: 05-25-2024 Clinisync Result Encounter Sunday Bhakta DO Work Phone: [facility] Unsolicited Start: 05-25-2024 End: 05-25-2024 Clinisync Result Encounter Sunday Bhakta DO Work Phone: [facility] Unsolicited Start: 05-25-2024 End: 05-25-2024 ambulatory Sunday Bhakta Facility:[facility] Start: 05-15-2024 End: 05-15-2024 Bamboo flowsheet Sunday Bhakta DO Work Phone: [facility] Start: 05-15-2024 End: 05-15-2024 Bamboo flowsheet Sunday Bhakta DO Work Phone: [facility] Start: 05-15-2024 End: 06-05-2024 Pre-admission assessment Sunday Bhakta [facility] Start: 05-15-2024 End: 05-15-2024 Patient encounter procedure Sunday Bhakta DO Work Phone: [facility] Comment on above: Left hip pain (Prima ry Dx) Start: 05-15-2024 End: 05-15-2024 ambulatory SUNDAY Davide BHAKTA Not Available Start: 04-27-2024 End: 04-27-2024 Telephone encounter Ronn Marquez DO Work Phone: [id number] Start: 03-27-2024 End: 03-27-2024 Patient encounter procedure Sunday Davide Bhakta DO Work Phone: [facility] Comment on above: Acute pain of left k nee (Primary Dx) Start: 03-27-2024 End: 03-27-2024 ambulatory SUNDAY Davide BHAKTA Not Available Start: 03-27-2024 End: 03-27-2024 ambulatory SUNDAY Davide BHAKTA Not Available Start: 03-19-2024 End: 03-19-2024 Admission to same day surgery center Sunday Bhakta [facility] Start: 03-19-2024 End: 03-19-2024 ambulatory Sunday Davide Bhakta Facility:[facility] Start: 02-10-2024 End: 02-10-2024 Patient encounter procedure Sunday Davide Bhakta DO Work Phone: [facility] Comment on above: Left hip pain (Prima ry Dx) Start: 02-10-2024 End: 02-10-2024 ambulatory SUNDAY Davide BHAKTA Not Available Start: 02-09-2024 End: 02-09-2024 ambulatory Efrain C Link Facility:[facility] Start: 02-09-2024 End: 02-09-2024 Patient encounter procedure Efrain C Link [facility] Start: 12-22-2023 End: 12-22-2023 ambulatory Efrain C Link Facility:[facility] Start: 12-22-2023 End: 12-22-2023 Patient encounter procedure Efrain C Link [facility] Start: 11-24-2023 End: 11-24-2023 ambulatory Efrain C Link Facility:[facility] Start: 11-24-2023 End: 11-24-2023 Patient encounter procedure Efrain C Link [facility] Start: 11-18-2023 End: 11-18-2023 Patient encounter procedure DO Ronn Marquez Work Phone: [facility] Work Phone: Start: 11-18-2023 End: 11-18-2023 ambulatory DO Ronn Marquez Work Phone: [facility] Work Phone: Start: 10-27-2023 End: 10-27-2023 ambulatory Efrain C Link Facility:[facility] Start: 10-27-2023 End: 10-27-2023 Patient encounter procedure Efrain C Link [facility] Start: 10-10-2023 ambulatory Efrain Link Facility:[facility] Start: 01-31-2023 End: 01-31-2023 ambulatory Angelique Gracie Other [place] Other Start: 01-31-2023 Telephone encounter Angelique Gracie [facility] Start: 08-20-2022 End: 08-20-2022 Patient encounter procedure LESLY MALDONADO [facility] Start: 06-25-2022 End: 06-25-2022 ambulatory DO Ronn Marquez Work Phone: [facility] Work Phone: Start: 06-25-2022 End: 06-25-2022 Patient encounter procedure DO Ronn Marquez Work Phone: [facility] Work Phone: Start: 01-19-2022 End: 01-19-2022 ambulatory Angelique Gracie Other [facility] [employer] Other Start: 01-19-2022 Office outpatient vi sit 25 minutes Angelique Gracie [facility] Start: 01-04-2020 End: 01-05-2020 Patient encounter procedure [facility] Facility: Start: 02-20-2019 End: 02-23-2019 Patient encounter procedure [facility] Start: 02-20-2019 End: 02-22-2019 Subsequent hospital visit by physician Briana Bean Radiologist [facility] Mamm[facility] Comment on above: Abnormal mammogram o f right breast Start: 08-17-2018 End: 08-20-2018 Patient encounter procedure [facility] Start: 08-07-2018 End: 08-10-2018 Patient encounter procedure [facility] Start: 07-18-2018 End: 07-19-2018 Patient encounter procedure [facility] Procedures Date Procedure Procedure Detail Performing Clinician Start: 08-13-2024 Dual energy X-ray absorptiometry Ronn Marquez DO Work Phone: Start: 06-11-2024 XR HIP 1 VIEW LEFT + PELVIS Sunday Bhakta DO Work Phone: Start: 06-11-2024 Repair of hip Sunday lee Start: 05-25-2024 UA WITH CULT RFLX Mehrdad pamela Bhakta DO Work Phone: Start: 03-27-2024 Radiologic examinati on knee 3 views Sunday Bhakta DO Work Phone: Start: 03-19-2024 Hip arthrogram Sunday Bhakta Start: 02-10-2024 Radex hip unilateral with pelvis 2-3 views Sunday Bhakta DO Work Phone: Start: 11-18-2023 End: 11-18-2023 Screening mammography of bilateral breasts DO Ronn Marquez Work Phone: Start: 06-25-2022 Dual energy X-ray absorptiometry DO Ronn Marquez Work Phone: Start: 06-25-2022 Screening mammograph y of bilateral breasts DO Ronn Marquez Work Phone: Start: 05-26-2021 Colonoscopy Sunday grande DO Work Phone: Start: 02-20-2019 Diagnostic mammograp hy computer-aided detcj uni WILIAM JONES Start: 02-20-2019 Diagnostic mammograp hy computer-aided detcj uni Wiliam Jones MD Work Phone: Start: 08-17-2018 Us breast uni real t ping with image complete WILIAM JONES Start: 08-17-2018 Diagnostic mammograp hy computer-aided detcj uni WILIAM JONES Start: 08-07-2018 Screening mammograph y bi 2-view breast inc cad WILIAM JONES Start: 07-18-2018 Screen pap by kirti encinas md supv WILIAM JONES Cholecystectomy LESLY MALDONADO right foot hind and midfoot fusion LESLY MALDONADO Plan of Treatment Date Care Activity Detail Author Start: 05-26-2031 Screening for malign ant neoplasm of colon [facility] Start: 12-31-2024 Influenza vaccination Influenz a Vaccine (Season Ended) [facility] Start: 11-17-2024 Screening for malign ant neoplasm of breast Mammogram [facility] Start: 10-12-2024 End: 10-12-2024 Patient encounter procedure 10/12/2024 9:30 AM EDT Office Visit [facility] [address] [facility] [place] [address] Derrick Kenny, DO [address] [facility] [address] [place] [address] [facility] Start: 10-11-2024 End: 10-11-2024 Patient encounter procedure 10/11/2024 8:15 AM EDT Office Visit [facility] [address] [facility] [place] [address] Sunday Bhakta, DO [address] [facility] [place] [address] [facility] Start: 09-14-2024 End: 09-14-2024 Patient encounter procedure 09/14/2024 8:45 AM EDT Office Visit [facility] [address] [facility] [place] [address] Derrick Kenny, DO [address] [place] [address] [facility] Start: 08-29-2024 End: 08-29-2024 ambulatory 08/29/2024 7:30 AM EDT Treatment [facility] [address] [place] [id number] Ronna Vu, PT [address] [place] [address] [facility] Start: 08-10-2024 End: 08-10-2024 ambulatory 08/10/2024 8:00 AM EDT Treatment [facility] [address] [place] [address] Kvng Young PTA [facility] Start: 08-07-2024 End: 08-07-2024 Admission to same day surgery center 08/07/2024 8:30 AM EDT Treatment [facility] [address] [place] [address] Kvng Young PTA Primary osteoarthritis of left hip (Primary Dx); Aftercare following left hip joint replacement surgery [facility] Comment on above: Primary osteoarthrit is of left hip (Primary Dx); Aftercare following left hip joint replacement surgery Start: 08-07-2024 End: 08-07-2024 ambulatory 08/07/2024 8:30 AM EDT Treatment [facility] [address] [place] [phone] Kvng Young PTA [facility] Start: 08-03-2024 End: 08-03-2024 ambulatory 08/03/2024 8:00 AM EDT Treatment [facility] [address] [place] [address] Kvng Young GUIDE DOG MOBILITY INSTRUCTOR [facility] Start: 08-01-2024 End: 08-01-2024 ambulatory 08/01/2024 8:00 AM EDT Treatment [facility] [address] [place] [address] Kvng Young GUIDE DOG MOBILITY INSTRUCTOR [facility] Start: 07-27-2024 End: 07-27-2024 ambulatory 07/27/2024 8:00 AM EDT Treatment [facility] [address] [place] [address] Ronna Vu, PT [address] [place] [address] [facility] Start: 07-24-2024 End: 07-24-2024 ambulatory 07/24/2024 8:30 AM EDT Treatment [facility] [address] [place] [address] Kvng Young GUIDE DOG MOBILITY INSTRUCTOR [facility] Start: 07-19-2024 End: 07-19-2024 ambulatory 07/19/2024 8:00 AM EDT Treatment [facility] [address] [place] [address] Shahid Edouard GUIDE DOG MOBILITY INSTRUCTOR [facility] Start: 07-17-2024 End: 07-17-2024 ambulatory 07/17/2024 8:30 AM EDT Treatment [facility] [address] [place] [address] Kvng Young GUIDE DOG MOBILITY INSTRUCTOR [facility] Start: 07-13-2024 End: 07-13-2024 ambulatory 07/13/2024 8:00 AM EDT Treatment [facility] [address] [place] [address] Kvng Young GUIDE DOG MOBILITY INSTRUCTOR [facility] Start: 07-11-2024 End: 07-11-2024 ambulatory 07/11/2024 8:00 AM EDT Treatment [facility] [address] [place] [address] Kvng Young PTA [facility] Start: 07-10-2024 End: 07-10-2024 Patient encounter procedure 07/10/2024 8:15 AM EDT Office Visit [facility] [address] [place] [id number] Sunday Bhakta, DO [address] [facility] [place] [address] [facility] Start: 07-09-2024 End: 07-09-2024 ambulatory 07/09/2024 8:00 AM EDT Treatment [facility] [address] [place] [phone] Ronna Vu, PT [address] [place] [address] [facility] Start: 07-06-2024 End: 07-06-2024 Patient encounter procedure 07/06/2024 8:15 AM EST Office Visit [facility] [address] [place] [address] Derrick Kenny, DO [address] [place] [address] [facility] Start: 07-06-2024 End: 07-06-2024 ambulatory 07/06/2024 8:00 AM EST Treatment [facility] [address] [place] [address] Kvng Young PTA [facility] Start: 07-04-2024 End: 07-04-2024 ambulatory 07/04/2024 8:00 AM EST Treatment [facility] [address] [place] [address] Kvng Young PTA [facility] Start: 05-31-2024 End: 05-31-2024 ambulatory 05/31/2024 7:00 AM EST Evaluation [facility] [address] [place] [phone] Abigail Ruvalcaba, PT [address] [place] [address] [facility] Start: 05-15-2024 End: 05-15-2024 Patient encounter procedure 05/15/2024 10:30 AM EST Office Visit [facility] [address] [place] [phone] Sunday Bhakta, DO [address] [place] [address] Left hip pain (Primary Dx) [facility] Comment on above: Left hip pain (Prima ry Dx) Start: 04-19-2024 End: 04-19-2024 Patient encounter procedure 04/19/2024 9:15 AM EST Office Visit [facility] [address] [place] [phone] Sunday Bhakta, DO [address] [place] [address] [facility] Start: 01-01-2024 Influenza vaccination Influenza Vacc ine (#1) [facility] Start: 06-02-2022 Medicare Annual Well ness (AWV) Medicare Annual Wellness (AWV) [facility] Start: 07-18-2021 Cervical cancer screen Cervical canc er screen [place], [place] Start: 08-17-2020 Breast cancer screen Breast cancer s creen [place], [place] Start: 07-19-2019 DTaP/Tdap/Td vaccine (1 - Tdap) DTaP/Tdap/Td vaccine (1 - Tdap) [place] Comment on above: Postponed from 07/02 (Patient Refused) Start: 07-19-2019 Hepatitis C screen Hepatitis C scree n [place], [place] Comment on above: Postponed from 07/02 (Not Indicated) Start: 07-19-2019 HIV screen HIV screen [place], [place] Comment on above: Postponed from 07/02 (Not Indicated) Start: 07-19-2019 Influenza vaccination Flu vaccine (# 1) [place], [place] Comment on above: Postponed from 12/31 (Patient Refused) Start: 07-19-2019 Shingles Vaccine (1 of 2) Shingles Vaccine (1 of 2) [place] Comment on above: Postponed from 07/02 (Unavailable) Start: 2004 Colon cancer screen colonoscopy Colon cancer screen colonoscopy [place], [place] Start: 1994 Lipid screen Lipid screen [place], [place] Start: 1973 Pneumococcal Vaccine : 65+ Years (1 of 2 - PCV) Pneumococcal Vaccine: 65+ Years (1 of 2 - PCV) [facility] Start: 1960 Pneumococcal Vaccine : 65+ Years (1 of 2 - PCV) Pneumococcal Vaccine: 65+ Years (1 of 2 - PCV) [facility] Start: 1955 Screening for malign ant neoplasm of colon [facility] XR Hip - left 3 Views XR hip lef t 2 or 3 views Imaging Routine Left hip pain 02/10/2024 7:51 AM EDT [facility] Work Phone: Immunizations Immunization Date Immunization Notes Care Provider Latoya [facility] 01-30-2021 influenza virus vaccine, unspecified formulation Sunday Bhakta DO Work Phone: [facility] 07-25-2020 COVID-19 Vaccine Pfi zer - Documentation Purposes Only Angelique Gracie Other [facility] Comment on above: Reason for Medicatio n: Prophylaxis 07-04-2020 COVID-19 Vaccine Pfi zer - Documentation Purposes Only Angelique Gracie Other [facility] Comment on above: Reason for Medicatio n: Prophylaxis 03-02-2020 influenza virus vaccine, unspecified formulation Efrain Link [facility] 01-31-2020 influenza virus vaccine, unspecified formulation [facility] 02-25-2014 influenza virus vaccine, unspecified formulation E[facility]rain Link [facility] 01-26-2013 influenza virus vaccine, unspecified formulation Efrain Link [facility] 02-28-2012 hepatitis B vaccine, adult dosage Erfain Link [facility] 10-04-2011 hepatitis B vaccine, adult dosage Efrain Link [facility] 08-27-2011 hepatitis B vaccine, adult dosage Efrain Link [facility] Payers Date Payer Category Payer Self-pay [id number] 2023 Private Health Insurance [facility] [place] [address] [id number] 2023 Unknown [id number] 2019 Medicare MEDICARE [id number] 2018 Unknown [employer] AT[employer] - EXCHANGE xxxxxxxxxxxx 2018-Present [phone] [address] [place] [address] xxxxxxxxxxxx [id number] .[id number] 1959 Medicare [id number] 1959 Unknown [id number] 1954 Unknown [id number] 2.16.840.1.717677.3.579.2 .174 1954 Unknown [id number] 2.16.840.1.426197.3.579.2 .174 1954 Unknown [id number] 2.16.840.1.781401.3.579.2 .174 1954 Unknown [id number] 2.16.840.1.209496.3.579.2 .174 1954 Unknown [id number] 2.16.840.1.648886.3.579.2 .174 1954 Unknown [id number] 2.16.840.1.552210.3.579.2 .593 1954 Unknown [id number] 2.16.840.1.879092.3.579.2 .727 1954 Unknown [id number] 2.16.840.1.146736.3.579.2 .727 1954 Unknown [id number] 2.16.840.1.979526.3.579.2 .727 1954 Unknown [id number] 2.16.840.1.763382.3.579.2 .727 1954 Unknown [id number] 2.16.840.1.024782.3.579.2 .727 1954 Unknown [id number] 2.16.840.1.441263.3.579.2 .727 1954 Unknown [id number] 2.16.840.1.868474.3.579.2 .727 1954 Unknown [id number] 2.16.840.1.036834.3.579.2 .727 1954 Unknown [id number] 2.16.840.1.349213.3.579.2 .727 1954 Unknown [id number] 2.16.840.1.268551.3.579.2 .1259 1954 Unknown [id number] 2.16.840.1.450693.3.579.2 .1258 1954 Unknown [id number] 2.16.840.1.809537.3.579.2 .1258 1954 Unknown [id number] 2.16.840.1.441136.3.579.2 .1258 1954 Unknown [id number] 2.16.840.1.837138.3.579.2 .1258 1954 Unknown [id number] 2.16.840.1.616689.3.579.2 .1258 1954 Unknown [id number] 2.16.840.1.406730.3.579.2 .1258 1954 Unknown [id number] 2.16.840.1.467336.3.579.2 .1258 1954 Unknown [id number] 2.16.840.1.517350.3.579.2 .1258 1954 Unknown [id number] 2.16.840.1.059168.3.579.2 .1258 1954 Unknown [id number] 2.16.840.1.769192.3.579.2 .9 1954 Unknown [id number] 2.16.840.1.766183.3.579.2 .125 1954 Unknown [id number] 2.16.840.1.047797.3.579.2 .1259 1954 Unknown [id number] 2.16.840.1.275134.3.579.2 .1258 1954 Unknown [id number] 2.16.840.1.632103.3.579.2 .1258 1954 Unknown [id number] 2.16.840.1.866909.3.579.2 .1258 1954 Unknown [id number] 2.16.840.1.545815.3.579.2 .1258 1954 Unknown [id number] 2.16.840.1.059401.3.579.2 .1258 1954 Unknown [id number] 2.16.840.1.946288.3.579.2 .1258 1954 Unknown [id number] 2.16.840.1.086757.3.579.2 .1259 1954 Unknown [id number] 2.16.840.1.413543.3.579.2 .1258 1954 Unknown [id number] 2.16.840.1.975932.3.579.2 .1259 Unknown [id number] 2.16.840.1.374923.19 Unknown [place] BC/BS ATIYA [id number] Unknown [id number] 2.16840.1.671274.3.579.2 .531 Unknown [id number] 2.16840.1.502872.3.579.2 .531 Social History Date Type Detail Facility Start: 07-18-2018 End: 06-22-2023 Tobacco smoking status NHIS Never smoker [facility] Start: 07-18-2018 End: 07-01-2023 Alcohol intake Yes [facility] Start: 07-18-2018 Alcohol Comment [facility] [place] [place] Start: 1955 Sex Assigned At Not on file M [facility]- [place], [place] Start: 1955 Sex Assigned At Female [facility] Tobacco smoking status No Smokin g Status Entered [facility] Tobacco smoking status Never [facility] Start: 06-22-2023 Tobacco use and exposure Smokeless tobacco non-user [facility] Start: 02-10-2024 End: 07-10-2024 Alcoholic beverage intake Ex-drinker (finding) [facility] Start: 07-01-2023 End: 07-10-2024 History of Social function [facility] How often to you hav e a drink containing alcohol? Monthly or less [facility] How many standard drinks containing alcohol do you have on a typical day? 1 or 2 [facility] How often do you hav e 6 or more drinks on 1 occasion? Never [facility] Start: 06-22-2023 Alcohol Comment Caffeine intak e: 1-2 cups per day [facility] Start: 08-14-2024 Sex Female (finding) [facility] Functional Status Date Assessment Result Facility 03-19-2024 Functional Status N/A [facility] 12-22-2023 Functional Status N/A [facility] 11-24-2023 Functional Status N/A [facility] 10-27-2023 Functional Status N/A [facility] Clinical Notes 01-19-2022 to 07-27-2024 Ronna Vu, PT - 07/27/2024 8:00 AM Joel Vu, PT - 2024 9:00 AM Vani [place] - 05/15/2024 10:30 AM ESTTelephone Encounter - Ana Samaniego - 04/27/2024 10:46 AM ESTLaboratory Note Date & Type Note Facility 07-27-2024 History of Present illness Narrative Images from the original note were not included. Time In: 8:00 AM Time Out: 8:42 AM Supervised Time: 42 min Total Time: 42 min Visit Number: 9 Chief Complaint: S/P L ADONIS on 06/11/[address] Bhakta 6 weeks post op on 07/23/24 3. Pt reports about 8 home PT sessions Precautions: ADONIS precautions; asthma Subjective Pain level: Patient denies pain today. Patient notes feeling good after last session. INTERVENTIONS: X 42 minutes of supervised therex per flowsheet PT Assessment: Patient denies pain today. Patient notes feeling good after last session. Continued with exercises per grid today. Added TKE with orange TB. Increased resistance for clamshells. Patient tolerated exercises well today. Assess patients response at next session. Progress per tolerance. Plan: Patient to be seen 1-3x per week for 4-6 week documented in this encounter [facility] 2024 History of Present illness Narrative Images from the original note were not included. Time In: 9:00 AM Time Out: 9:50 AM Supervised Time: 50 min Total Time: 50 min Evaluation Time: 15 min Visit Number: 1 Chief Complaint: S/P L ADONIS on 06/11/[address] Bhakta 3 weeks post op on 07/02/24 3. Pt reports about 8 home PT sessions Precautions: ADONIS precautions; asthma Subjective Reports not having pain since surgery, just stiffness. Used walker for 1 week, then cane 1 week and now no AD used. 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 Handout provided and reviewed with the patient. Exercises included in today's exercise grid PT Assessment: Therapy Diagnosis: S/P L ADONIS on 06/11/[address] Bhakta Functional Limitations: LEFS: 56/80 Filter Tip Inspector Goals: 1. Pt will be able to perform reciprocal stepping with stairs with 1 UE support in order to improve ability to perform stair climbing at home and in the community. 2. The patient will achieve at least 4+/5 Left LE muscle strength in order to improve ability to perform ADLs and return to PLOF 3. Patient will achieve 80 degrees of standing left hip flexion AROM to improve functional mobility 4. Patient will demonstrate proper gait mechanics without an AD and with 1/10 or less pain 5. The patient will be fully compliant with their HEP and icing Rehab Potential: Good Plan: Patient to be seen 1-3x per week for 4-6 weeks Treatment: Therex, manual therapy, Nuero re-ed, electrical stimulation, ice I hereby deem this POC medically necessary. Please sign below and fax back to the number below. Physician Signature: Date: documented in this encounter [facility] 06-13-2024 Note Progress Note-Physic marcelo Patient: CAMILA GARCIA Age: 68 years Sex: Female : 1955 Associated Diagnoses: None Author: Jose Darby Jr, DO Postoperative Information Postoperative disposition: Postoperative disposition: To PACU. Optimetrix number: Optimetrix number [id number]. Anesthetic utilized: General. Health Status Allergies: Allergic Reactions (Selected) No Known Allergies Physical Examination Vital Signs 06/11/2024 13:00 EST Heart Rate Monitored 78 bpm Respiratory Rate Monitored 20 br/min Systolic Blood Pressure 100 mmHg Diastolic Blood Pressure 62 mmHg SpO2 98 % 06/11/2024 12:27 EST Temperature Temporal Artery 36.5 DegC Heart Rate Monitored 75 bpm Respiratory Rate Monitored 29 br/min Systolic Blood Pressure 98 mmHg Diastolic Blood Pressure 66 mmHg Mean Arterial Pressure, Cuff 77 mmHg SpO2 98 % 06/11/2024 12:15 EST Heart Rate Monitored 67 bpm Respiratory Rate Monitored 16 br/min Systolic Blood Pressure 97 mmHg Diastolic Blood Pressure 56 mmHg LOW Mean Arterial Pressure, Cuff 70 mmHg SpO2 100 % 06/11/2024 12:10 EST Heart Rate Monitored 66 bpm Respiratory Rate Monitored 10 br/min Systolic Blood Pressure 87 mmHg LOW Diastolic Blood Pressure 56 mmHg LOW Mean Arterial Pressure, Cuff 66 mmHg SpO2 100 % 06/11/2024 12:05 EST Heart Rate Monitored 71 bpm Respiratory Rate Monitored 19 br/min Systolic Blood Pressure 98 mmHg Diastolic Blood Pressure 55 mmHg LOW Mean Arterial Pressure, Cuff 69 mmHg SpO2 100 % 06/11/2024 12:00 EST Heart Rate Monitored 81 bpm Respiratory Rate Monitored 12 br/min Systolic Blood Pressure 96 mmHg Diastolic Blood Pressure 60 mmHg Mean Arterial Pressure, Cuff 72 mmHg SpO2 100 % 06/11/2024 11:57 EST Temperature Temporal Artery 36.3 DegC Heart Rate Monitored 90 bpm Respiratory Rate Monitored 14 br/min Systolic Blood Pressure 86 mmHg LOW Diastolic Blood Pressure 46 mmHg LOW Blood Pressure Location Right arm Mean Arterial Pressure, Cuff 59 mmHg SpO2 100 % Pain Assessment: Controlled. General: Awake, Alert, Appropriate. Respiratory: Adequate air exchange. Cardiovascular: Stable, Normal peripheral perfusion. Neurological: Normal sensory function, Normal motor function. Assessment Anesthetic outcome No anesthetic complications noted. Adequate pain relief. able to void without difficulty, able to ambulate with assist, tolerating PO intake, no N/V. Review / Management Condition: Stable. Plan Transfer/Discharge: Transfer/Discharge Discharge when meets criteria ( To home ). [facility] Comment on above: Result Comment: Elec tronically Signed By: Jose Darby Jr, DO\.br\Date and Time Signed: 06/13/24 11:38 EST 06-12-2024 Note Progress Note-Physic marcelo Patient: CAMILA GARCIA Age: 68 years Sex: Female : 1955 Associated Diagnoses: None Author: Jose Darby Jr, DO Preoperative Information Anesthesia Preop Info: Time patient last ate or drank 06/11/2024 00:00:00. Anesthesia history: Patient history: None. Family history+: None. Informed consent: Signed by patient. Re-evaluation prior to induction: Initial evaluation reviewed: No significant change. Review of Systems Eye: Negative except as documented in history of present illness. Ear/Nose/Mouth/Throat: Negative except as documented in history of present illness. Respiratory: Negative except as documented in history of present illness. Cardiovascular: Negative except as documented in history of present illness. Musculoskeletal: Negative except as documented in history of present illness. Neurologic: Negative except as documented in history of present illness. Health Status Allergies: Allergic Reactions (Selected) No Known Allergies Problem list: All Problems Arm somatic dysfunction / SNOMED CT 2546881355 / Confirmed Sacral region somatic dysfunction / SNOMED CT 9912102009 / Confirmed Pelvic region somatic dysfunction / SNOMED CT 0102029110 / Confirmed Lumbar region somatic dysfunction / SNOMED CT 3030172506 / Confirmed Lower limb region somatic dysfunction / SNOMED CT 3484302810 / Confirmed Segmental dysfunction of rib cage / SNOMED CT 87266473 / Confirmed Segmental and somatic dysfunction of thoracic region / SNOMED CT 256266173 / Confirmed Osteoarthritis of right foot / SNOMED CT 7171519325 / Confirmed Fracture / SNOMED CT 781736615 / Confirmed right foot Asthma / SNOMED CT 884999307 / Confirmed Asthma / SNOMED CT 032995651 / Confirmed Histories Procedure history: Hip arthrogram (213210413) on 03/19/2024 at 68 Years. Cholecystectomy (05679321). right foot hind and midfoot fusion. Social History Social & Psychosocial Habits Alcohol 10/27/2023 Risk Assessment: Denies Alcohol Use Substance Abuse 10/27/2023 Risk Assessment: Denies Substance Abuse Tobacco 10/27/2023 Risk Assessment: Denies Tobacco Use 12/22/2023 Tobacco Use: Never (less than 100 in l Smokeless tobacco use: Never Concerns about tobacco use in household: No . Physical Examination Airway: Mallampati classification: II (soft palate, fauces, uvula visible). Respiratory: adequate air exchange. Cardiovascular: Regular rhythm. Plan [place] [employer]esthesi[employer] (ASA) physical status classification: Class II. Anesthetic Preoperative Plan: Anesthesia General. Regional Spinal. [facility] Comment on above: Result Comment: Elec tronically Signed By: Jose Darby Jr, DO\Date and Time Signed: 06/12/24 11:44 EST 06-11-2024 Hospital Discharge instructions Patient Education 06/11/2024 15:50:06 How to Use an Incentive Spirometer How to Use an Incentive Spirometer An incentive spirometer is a tool that measures how well you are filling your lungs with each breath. Learning to take long, deep breaths using this tool can help you keep your lungs clear and active. This may help to reverse or lessen your chance of developing breathing (pulmonary) problems, especially infection. You may be asked to use a spirometer: After a surgery. If you have a lung problem or a history of smoking. After a long period of time when you have been unable to move or be active. If the spirometer includes an indicator to show the highest number that you have reached, your health care provider or respiratory therapist will help you set a goal. Keep a log of your progress as told by your health care provider. What are the risks? Breathing too quickly may cause dizziness or cause you to pass out. Take your time so you do not get dizzy or light-headed. If you are in pain, you may need to take pain medicine before doing incentive spirometry. It is harder to take a deep breath if you are having pain. How to use your incentive spirometer 1.Sit up on the edge of your bed or on a chair. 2.Hold the incentive spirometer so that it is in an upright position. 3.Before you use the spirometer, breathe out normally. 4.Place the mouthpiece in your mouth. Make sure your lips are closed tightly around it. 5.Breathe in slowly and as deeply as you can through your mouth, causing the piston or the ball to rise toward the top of the chamber. 6.Hold your breath for 3 5 seconds, or for as long as possible. If the spirometer includes a coach wirer indicator, use this to guide you in breathing. Slow down your breathing if the indicator goes above the marked areas. 7.Remove the mouthpiece from your mouth and breathe out normally. The piston or ball will return to the bottom of the chamber. 8.Rest for a few seconds, then repeat the steps 10 or more times. Take your time and take a few normal breaths between deep breaths so that you do not get dizzy or light-headed. Do this every 1 2 hours when you are awake. 9.If the spirometer includes a goal marker to show the highest number you have reached (best effort), use this as a goal to work toward during each repetition. 10.After each set of 10 deep breaths, cough a few times. This will help to make sure that your lungs are clear. If you have an incision on your chest or abdomen from surgery, place a pillow or a rolled-up towel firmly against the incision when you cough. This can help to reduce pain while taking deep breaths and coughing. General tips When you are able to get out of bed: ?Walk around often. ?Continue to take deep breaths and cough in order to clear your lungs. Keep using the incentive spirometer until your health care provider says it is okay to stop using it. If you have been in the hospital, you may be told to keep using the spirometer at home. Contact a health care provider if: You are having difficulty using the spirometer. You have trouble using the spirometer as often as instructed. Your pain medicine is not giving enough relief for you to use the spirometer as told. You have a fever. Get help right away if: You develop shortness of breath. You develop a cough with bloody mucus from the lungs. You have fluid or blood coming from an incision site after you cough. Summary An incentive spirometer is a tool that can help you learn to take long, deep breaths to keep your lungs clear and active. You may be asked to use a spirometer after a surgery, if you have a lung problem or a history of smoking, or if you have been inactive for a long period of time. Use your incentive spirometer as instructed every 1 2 hours while you are awake. If you have an incision on your chest or abdomen, place a pillow or a rolled-up towel firmly against your incision when you cough. This will help to reduce pain. Get help right away if you have shortness of breath, you cough up bloody mucus, or blood comes from your incision when you cough. This information is not intended to replace advice given to you by your health care provider. Make sure you discuss any questions you have with your health care provider. Document Revised: 07/07/2020 Document Reviewed: 07/07/2020 Elsevier Patient Education 2023 [employer] 06/11/2024 15:50:04 Post Op Patient Instructions - FT (CUSTOM) 06/06/2024 15:14:33 Bhakta - Hip Replacement Arthroplasty (CUSTOM) [place], [place] [facility] DISCHARGE INSTRUCTIONS HIP REPLACEMENT ARTHROPLASTY INCISION CARE: Mepilex dressing can get wet with showers. Please remove 10 days after surgery per instruction sheet. Physical Therapy will monitor. If joselito present, please coordinate removal 21 days after surgery with office staff. Please notify the office if any increase in redness, tenderness, drainage, fever, or wound separation is noted beyond this point. Compression stockings may be helpful if any significant or uncomfortable swelling in the legs is noted postoperatively. Use and removal instructions should be given by physical therapy. If the swelling is below the knee, knee high compression stockings may suffice. If this does cause swelling into the thigh region, waist high compression stockings may be beneficial as well. These can be obtained from most pharmacies, or can be obtained from the hospital or through Home Health. The mild grade compression stockings are best used initially, and dislocation precautions must be maintained. DISLOCATION PRECAUTIONS: Continue to use the abduction pillow between the knees at all times while in bed. This abduction pillow should be removed while walking and performing physical therapy exercises; otherwise, to be used while in bed. This is to be maintained for four weeks postoperatively. At that time you may begin using a regular bed pillow between your knees at night as needed. You should continue to avoid crossing the knees or crossing the legs for two months postoperatively. Sitting in a chair should always be such that the knees are kept below the level of the hips to avoid increased flexion of the hip, possibly causing dislocation. No sleeping on the operative side for 4 weeks. MEDICATIONS: You may resume your home medications at the time of discharge. Aspirin 325 mg EC oral once a day for 4 weeks for blood clot prevention with meals. Please notify your doctor if you have a stomach sensitivity to Aspirin or history of previous stomach ulcers. [facility] Discharge Instructs for Hip Replace.Page 2 Medications Cont. Pain medication has been prescribed as well. You may continue to use the pain medication every four hours as needed. Any narcotic pain medication can cause side effects including stomach upset, constipation, or light-headedness. You should not drive or operate machinery, or use alcohol while using the narcotic pain medication. You should not use other pain medications with this prescription pain medication unless further directed by your physician. PHYSICAL THERAPY DISLOCATION PRECAUTIONS: Continue the range of motion and strengthening exercises initiated in Physical Therapy in the hospital. Again, do not cross legs, internally rotate the legs, or flex the hip above 90 degrees for two months postoperatively. Continue weight bearing, as ordered, to the operated hip for four to six weeks as directed in Physical Therapy. This will be with the use of a walker or crutches. After four or six weeks you may then progress to the use of one crutch, or a cane. A quad-cane is preferred as this is more stable. Physical therapy as begun in the hospital will continue at home, possible with the safety assistant of Home Health Physical Therapy or in the hospital as an outpatient. When you have become independent with the physical therapy program, this will then be discontinued as a supervised program and you will be instructed to continue the physical therapy exercises at home. Please call your [facility] with any questions or concerns [phone] [phone]. DRIVING: Driving is not recommended for 4-6 week pending progress. Driving too soon, you are considered an impaired driver courier, and this could be a problem. It is therefore advised not to drive until after your first office visit following surgery FOLLOW-UP OFFICE VISIT: Sunday Bhakta, DO [facility] [address] [place] [id number] Reviewed: 09-21 Follow Up Care 05/21/2024 13:27:42 With:KRISTOPHER Lacey Address: [address] [place] [phone] [id number] (1) When:07/10/2024 08:15:00 Comments:Keep scheduled appointmentCall for any problems. [facility] 06-11-2024 Note Patient Education - Text Pulmonary Medicine How to Use an Incentive Spirometer An incentive spirometer is a tool that measures how well you are filling your lungs with each breath. Learning to take long, deep breaths using this tool can help you keep your lungs clear and active. This may help to reverse or lessen your chance of developing breathing (pulmonary) problems, especially infection. You may be asked to use a spirometer: ??? After a surgery. ??? If you have a lung problem or a history of smoking. ??? After a long period of time when you have been unable to move or be active. If the spirometer includes an indicator to show the highest number that you have reached, your health care provider or respiratory therapist will help you set a goal. Keep a log of your progress as told by your health care provider. What are the risks? Breathing too quickly may cause dizziness or cause you to pass out. Take your time so you do not get dizzy or light-headed. ??? If you are in pain, you may need to take pain medicine before doing incentive spirometry. It is harder to take a deep breath if you are having pain. How to use your incentive spirometer 1. Sit up on the edge of your bed or on a chair. 2. Hold the incentive spirometer so that it is in an upright position. 3. Before you use the spirometer, breathe out normally. 4. Place the mouthpiece in your mouth. Make sure your lips are closed tightly around it. 5. Breathe in slowly and as deeply as you can through your mouth, causing the piston or the ball to rise toward the top of the chamber. 6. Hold your breath for 3?5 seconds, or for as long as possible. ??? If the spirometer includes a coach wirer indicator, use this to guide you in breathing. Slow down your breathing if the indicator goes above the marked areas. 7. Remove the mouthpiece from your mouth and breathe out normally. The piston or ball will return to the bottom of the chamber. 8. Rest for a few seconds, then repeat the steps 10 or more times. ??? Take your time and take a few normal breaths between deep breaths so that you do not get dizzy or light-headed. ??? Do this every 1?2 hours when you are awake. 9. If the spirometer includes a goal marker to show the highest number you have reached (best effort), use this as a goal to work toward during each repetition. 10. After each set of 10 deep breaths, cough a few times. This will help to make sure that your lungs are clear. ??? If you have an incision on your chest or abdomen from surgery, place a pillow or a rolled-up towel firmly against the incision when you cough. This can help to reduce pain while taking deep breaths and coughing. General tips ??? When you are able to get out of bed: ? Walk around often. ? Continue to take deep breaths and cough in order to clear your lungs. ??? Keep using the incentive spirometer until your health care provider says it is okay to stop using it. If you have been in the hospital, you may be told to keep using the spirometer at home. Contact a health care provider if: ??? You are having difficulty using the spirometer. ??? You have trouble using the spirometer as often as instructed. ??? Your pain medicine is not giving enough relief for you to use the spirometer as told. ??? You have a fever. Get help right away if: ??? You develop shortness of breath. ??? You develop a cough with bloody mucus from the lungs. ??? You have fluid or blood coming from an incision site after you cough. Summary ??? An incentive spirometer is a tool that can help you learn to take long, deep breaths to keep your lungs clear and active. ??? You may be asked to use a spirometer after a surgery, if you have a lung problem or a history of smoking, or if you have been inactive for a long period of time. ??? Use your incentive spirometer as instructed every 1?2 hours while you are awake. ??? If you have an incision on your chest or abdomen, place a pillow or a rolled-up towel firmly against your incision when you cough. This will help to reduce pain. ??? Get help right away if you have shortness of breath, you cough up bloody mucus, or blood comes from your incision when you cough. This information is not intended to replace advice given to you by your health care provider. Make sure you discuss any questions you have with your health care provider. Document Revised: 07/07/2020 Document Reviewed: 07/07/2020 [employer] Patient Education ? 2023 [employer] [place], [place] [facility] DISCHARGE INSTRUCTIONS HIP REPLACEMENT ARTHROPLASTY INCISION CARE: Mepilex dressing can get wet with showers. Please remove 10 days after surgery per instruction sheet. Physical Therapy will monitor. If joselito present, please coordinate removal 21 days after surgery with office s (more content not included)... [facility] 06-06-2024 Note Patient Education - Text [place], [place] [facility] DISCHARGE INSTRUCTIONS HIP REPLACEMENT ARTHROPLASTY INCISION CARE: Mepilex dressing can get wet with showers. Please remove 10 days after surgery per instruction sheet. Physical Therapy will monitor. If joselito present, please coordinate removal 21 days after surgery with office staff. Please notify the office if any increase in redness, tenderness, drainage, fever, or wound separation is noted beyond this point. Compression stockings may be helpful if any significant or uncomfortable swelling in the legs is noted postoperatively. Use and removal instructions should be given by physical therapy. If the swelling is below the knee, knee high compression stockings may suffice. If this does cause swelling into the thigh region, waist high compression stockings may be beneficial as well. These can be obtained from most pharmacies, or can be obtained from the hospital or through Home Health. The mild grade compression stockings are best used initially, and dislocation precautions must be maintained. DISLOCATION PRECAUTIONS: Continue to use the abduction pillow between the knees at all times while in bed. This abduction pillow should be removed while walking and performing physical therapy exercises; otherwise, to be used while in bed. This is to be maintained for four weeks postoperatively. At that time you may begin using a regular bed pillow between your knees at night as needed. You should continue to avoid crossing the knees or crossing the legs for two months postoperatively. Sitting in a chair should always be such that the knees are kept below the level of the hips to avoid increased flexion of the hip, possibly causing dislocation. No sleeping on the operative side for 4 weeks. MEDICATIONS: You may resume your home medications at the time of discharge. Aspirin 325 mg EC oral once a day for 4 weeks for blood clot prevention with meals. Please notify your doctor if you have a stomach sensitivity to Aspirin or history of previous stomach ulcers. [facility] Discharge Instructs for Hip Replace. Page 2 Medications Cont. Pain medication has been prescribed as well. You may continue to use the pain medication every four hours as needed. Any narcotic pain medication can cause side effects including stomach upset, constipation, or light-headedness. You should not drive or operate machinery, or use alcohol while using the narcotic pain medication. You should not use other pain medications with this prescription pain medication unless further directed by your physician. PHYSICAL THERAPY ??? DISLOCATION PRECAUTIONS: Continue the range of motion and strengthening exercises initiated in Physical Therapy in the hospital. Again, do not cross legs, internally rotate the legs, or flex the hip above 90 degrees for two months postoperatively. Continue weight bearing, as ordered, to the operated hip for four to six weeks as directed in Physical Therapy. This will be with the use of a walker or crutches. After four or six weeks you may then progress to the use of one crutch, or a cane. A quad-cane is preferred as this is more stable. Physical therapy as begun in the hospital will continue at home, possible with the safety assistant of Home Health Physical Therapy or in the hospital as an outpatient. When you have become independent with the physical therapy program, this will then be discontinued as a supervised program and you will be instructed to continue the physical therapy exercises at home. Please call your [facility] with any questions or concerns [phone]. DRIVING: Driving is not recommended for 4-6 week pending progress. Driving too soon, you are considered an impaired driver courier, and this could be a problem. It is therefore advised not to drive until after your first office visit following surgery FOLLOW-UP OFFICE VISIT: Sunday Bhakta, DO [facility] [address] [place] [address] Reviewed: 09-21 [facility] 05-15-2024 History of Present illness Narrative Images from the original note were not included. GENERAL HISTORY AND PHYSICAL: NAME: Camila Garcia : 1955 Camila Garcia is a 68 y.o. female presents with chief complaint of left hip pain and stiffness. HPI: Camila is here to review her left hip and request total hip replacement. She has tried injection, ice, Tylenol and topicals. She has tried anti-inflammatory. She has activities of daily living and night disruption. She has buckling and giving out. She has tried assistive device as well as exercise. No significant history of cardiopulmonary disease. No anesthesia complications reported. No history of deep venous thrombosis or pulmonary embolism. There are no fever, chills, no arthralgias or myalgias. She has pain, stiffness and irritability. She does get pain to the left hip with buckling and giving out. She has attempted assistive device. SUBJECTIVE: MEDICATIONS: Current Outpatient Medications Medication Instructions Calcium Carbonate-Vit D-Min (CALCIUM 1200 PO) Calcium cholecalciferol (VITAMIN D-3) 5,000 Units, Oral, Daily cyanocobalamin (Vitamin B-12) 100 MCG tablet Refills(s) 0 cyclobenzaprine (Flexeril) 10 MG tablet See Instructions, TAKE 1 TABLET BY MOUTH THREE TIMES DAILY NEEDED for spasm, # 30 tab(s), Refills(s) 1, Pharmacy: [id number], 178, cm, 12/22/23 7:08:00 EDT, Height/Length Dosing, 64.6, kg, 12/22/23 7:08:00 EDT, Weight Dosing loratadine (CLARITIN REDITABS) 10 mg, Oral, Daily Magnesium 400 MG capsule Oral meloxicam (MOBIC) 15 mg mometasone (Nasonex) 50 MCG/ACT nasal spray 2 sprays, Each Nostril, Daily montelukast (SINGULAIR) 10 mg, Oral, Every 24 hours Multiple Vitamin (multivitamin) tablet 1 tablet, Oral, Daily ALLERGIES: Allergies Allergen Reactions Dust Mite Extract Other Reaction(s): Unknown Pollen Extract Other Reaction(s): Unknown SURGICAL HISTORY: Past Surgical History: Procedure Laterality Date CERVICAL POLYPECTOMY 2006 CHOLECYSTECTOMY COLONOSCOPY 2010 WNL COLONOSCOPY 06/25/2021 PCL DILATION AND CURETTAGE OF UTERUS Miscarriage ORIF ANKLE FRACTURE Right 2010 FAMILY HISTORY: Family History Problem Relation Name Age of Onset No Known Problems Sister Healthy Colon cancer Brother Leukemia Brother Colon cancer Brother Leukemia Brother SOCIAL HISTORY: Social History Tobacco Use Smoking status: Never Smokeless tobacco: Never Vaping Use Vaping status: Never Used Substance Use Topics Alcohol use: Not Currently Comment: Caffeine intake: 1-2 cups per day Drug use: Never Depression: Not at risk (07/01/2023) PHQ-2 PHQ-2 Score: 0 REVIEW OF SYMPTOMS: The review of systems, history and current medications list are all reviewed today. OBJECTIVE: Visit Vitals Ht 5' 9 Wt 140 lb LMP (LMP Unknown) BMI 20.67 kg/m OB Status Postmenopausal Smoking Status Never BSA 1.76 m GENERAL AND PSYCHOLOGICAL: The patient is alert and oriented for age. HEAD AND E.E.N.T.: The skull is normocephalic. There is no mass or sign of trauma. NECK: The neck is supple. There is good range of motion. There is no mass or adenopathy appreciated. The thyroid is not enlarged. CARDIAC: The heart is regular. There is no murmur or ectopy appreciated. LUNGS: Inspiratory and expiratory excursions are symmetrical. The lung blanton are clear in all quadrants. ABDOMEN: The texture is soft. Bowel sounds are heard well in all quadrants. There is no tenderness to palpation. There is no organomegaly appreciated. OSTEOPATHIC AND STRUCTURAL: There is no gross evidence of kyphosis, lordosis, scoliosis, or apparent leg length discrepancy, with no acute tissue texture changes in sitting or standing positions. Physical Exam On physical exam, she is alert and oriented. Vital signs are stable. There is no obvious sign of atrophy. There is no mass. No rash or infection. She has a stable arc of motion on the contralateral hip. The left hip has moderate stiffness. This does produce moderate pain with stress testing. Bench and straight leg raise testing is negative. The patient is neurovascularly intact distally. Knee exam is stable with just a light hue of crepitation. X-rays, permanently saved to the patient's record, are reviewed AP pelvis, left hip taken in the [facility] office saved to the permanent record shows advanced degenerative changes that are near bone on bone. This is grade III to IV. There is no fracture, dislocation, tumor or infection seen. ASSESSMENT AND PLAN: Assessment/Plan Left hip end stage osteoarthritis; antalgic gait; failure of conservative and injection management. The nature of the findings were discussed at length. She has tried conservative and injection care. She is having activities of daily living and night disruption. Her x-rays, exam and history support total hip replacement. We discussed the incision, dissection, anatomy, time, healing, commitment and expectations were all reviewed. The pathology of hip arthritis was reviewed at length. X-ray imaging studies were discussed. We discussed total hip arthroplasty. The risks, benefits, complications, and reasonable expectations were reviewed. These include but are not limited to infection, infection requiring multiple surgeries with IV antibiotics with cement spacer, the fact that infection can present several years later, leg length inequality, fracture, dislocation, product recall, product failure, mechanical clunk, hematoma, bleeding, need for transfusion, nerve, vessel or tendon injury, foot drop, blood clot, pulmonary embolus, myocardial infarction, arrhythmia, stroke, and were all reviewed. The potential of fracture was discussed. We discussed the various weight bearing surfaces utilized for hip arthroplasty with the pros, cons, risks and benefits. Numerous questions were answered. The patient voices verbal understanding. Consent forms are signed and witnessed. I am personally involved with the informed consent process. The patient is discharged in stable condition. Consent forms are signed and witnessed. She will undergo routine presurgical testing and scheduling. We will move forward in the near future. I will see her back postoperatively. She voices verbal understanding. She is discharged in stable condition. Numerous questions were answered. The patient was seen and examined. From the time of check in, nurse triage, vital signs, x-ray, x-ray interpretation, review of systems, comprehensive history and physical exam as well as setting up treatment plan and further management took 35 minutes. Cosigned by Sunday Bhakta DO at 05/18/2024 7:02 AM EST documented in this encounter [facility] 04-27-2024 Telephone encounter Note Rx help center calling to requesting a refill singulair Please fax to rx help center [phone] [facility] 04-27-2024 Miscellaneous Notes Rx help center calling to requesting a refill singulair Please fax to rx help center [phone] documented in this encounter [facility] 03-27-2024 History of Present illness Narrative Gel One Injection Left knee Patient is seen and evaluated today for left knee pain and stiffness. Continued swelling and stiffness despite conservative course with ice, Tylenol, NSAID's and compression. Occasional buckle sensation. Night disruption is present and increasing. Progression of pain. Occasional assistive device required. Here today to review non-operative conservative options and discuss indications and overview of knee arthroplasty. Physical Exam: The patient is examined in the office today. The left knee has mild aseptic swelling. Hypertrophic changes are noted. AROM is decreased with pain. Crepitance is present in multiple compartments. Tenderness is moderate to severe thru multiple compartments. Collateral ligaments are intact to stress testing at 0 and 30 degrees. Positive grind test of the patella. Gait is stiff and antalgic with occasional assistive device reported. Hip exam is stable. Negative bench and straight leg raise testing. NVM intact distally without footdrop. Calves are supple without sign of infection, ulceration or DVT. Xrays: Multiple weightbearing views (AP, Lateral and sunrise) are reviewed for the permanent PACS record. Advanced grade 3-4 degenerative changes are present of the left knee mainly lateral with valgus deformity. No fracture, dislocation, tumor or infection seen. Images are reviewed with the patient at length. Assessment: Left knee Osteoarthritis-M17.12 Left knee pain-M25.562 Antalgic gait-R26 Treatment/Plan: The nature of the findings were discussed at length. Xray imaging and severity discussed. Conservative management with ice, heat, exercise, strengthening, weight loss, compression wrap/bracing was reviewed. Anti-inflammatory medication , if stable with GI and kidney function, was reviewed. OTC and prescription options were discussed. Tylenol dosing parameters and daily limits for breakt thru pain was reviewed. Cortisone injections can be provided up to 3 per year and no closer than a month interval. Hyaluronic acid viscosupplementation options and expectations were discussed at length. Patient is aware results are not guaranteed. We discussed the role of knee replacement surgery, indications, approach, implants, and rehab process were all reviewed. After lengthy discussion, the patient elects to move forward with viscosupplementation injection with Gel One to the left knee. Under sterile technique with the knee extended and supported, 3 ml of Gel One was injected to the left knee suprapatellar pouch. Needle was removed and adequate hemostasis was achieved. The patient tolerated the injection well. Post injection restriction of 50% activity reduction the day of the injection with icing techniques 1-2 times per 10-15 minutes to the knee was reviewed. Patient was ambulatory and discharged in stable condition. Any reactions, concerns or continued pain will be reported via phone call or return visit. All questions were answered. documented in this encounter [facility] 02-29-2024 Hospital Discharge instructions Follow Up Care 02/29/2024 14:09:33 With:KRISTOPHER Lacey Address: [address] [place] [address] Business (1) When:04/19/2024 09:15:00 Comments:Keep scheduled appointment [facility] 02-10-2024 History of Present illness Narrative Images from the original note were not included. Camila Garcia is a 68 y.o. female presents with chief complaint of left hip and thigh pain. HPI: Camila is here with a several month history of progressive pain along the left hip and thigh radiating down just above the knee. She initially thought it was just muscle or coming from her knee. She is having more stiffness, groin pain, irritability. She denies any numbness or tingling. No fever, chills or constitutional symptoms. No specific fall or trauma. She is very active with doing her chores. SUBJECTIVE: MEDICATIONS: Current Outpatient Medications Medication Instructions Calcium Carbonate-Vit D-Min (CALCIUM 1200 PO) Calcium cholecalciferol (VITAMIN D-3) 5,000 Units, Oral, Daily cyanocobalamin (Vitamin B-12) 100 MCG tablet Refills(s) 0 loratadine (CLARITIN REDITABS) 10 mg, Oral, Daily Magnesium 400 MG capsule Oral mometasone (Nasonex) 50 MCG/ACT nasal spray 2 sprays, Each Nostril, Daily montelukast (SINGULAIR) 10 mg, Oral, Every 24 hours Multiple Vitamin (multivitamin) tablet 1 tablet, Oral, Daily ALLERGIES: Allergies Allergen Reactions Dust Mite Extract Other Reaction(s): Unknown Pollen Extract Other Reaction(s): Unknown SURGICAL HISTORY: Past Surgical History: Procedure Laterality Date CERVICAL POLYPECTOMY 2006 CHOLECYSTECTOMY COLONOSCOPY 2011 WNL COLONOSCOPY 06/25/2021 PCL DILATION AND CURETTAGE OF UTERUS Miscarriage ORIF ANKLE FRACTURE Right 2011 FAMILY HISTORY: Family History Problem Relation Name Age of Onset No Known Problems Sister Healthy Colon cancer Brother Leukemia Brother Colon cancer Brother Leukemia Brother SOCIAL HISTORY: Social History Tobacco Use Smoking status: Never Smokeless tobacco: Never Vaping Use Vaping status: Never Used Substance Use Topics Alcohol use: Not Currently Comment: Caffeine intake: 1-2 cups per day Drug use: Never Depression: Not at risk (07/01/2023) PHQ-2 PHQ-2 Score: 0 REVIEW OF SYMPTOMS: The review of systems, history and current medications list are all reviewed today. OBJECTIVE: Visit Vitals Ht 5' 8 Wt 140 lb LMP (LMP Unknown) BMI 21.29 kg/m OB Status Postmenopausal Smoking Status Never BSA 1.75 m Physical Exam On physical exam, she is alert and oriented. Vital signs are stable. There is no obvious sign of atrophy. There is no mass. No rash or infection. She has a stable arc of motion on the contralateral hip. The left hip has moderate stiffness. This does produce moderate pain with stress testing. Bench and straight leg raise testing is negative. The patient is neurovascularly intact distally. Knee exam is stable with just a light hue of crepitation. X-rays, permanently saved to the patient's record, are reviewed AP pelvis, left hip taken in the [facility] office saved to the permanent record shows advanced degenerative changes that are near bone on bone. This is grade III to IV. There is no fracture, dislocation, tumor or infection seen. ASSESSMENT AND PLAN: Assessment/Plan Left hip osteoarthritis with antalgic gait. Referred thigh pain. The nature of the findings were discussed at length. We discussed the pathology. Ultimately if not getting better, we discussed the further role of cortisone injection under arthrogram up to three per year. We discussed the termite renewal inspector definitive role of total hip replacement. She will continue with her anti-inflammatory which she has Meloxicam. Ice, Tylenol for breakthrough and follow up at this point will be on a p.r.n. basis. She voices verbal understanding. She is discharged in stable condition. Numerous questions were answered. The patient was seen and examined. From the time of check in, nurse triage, vital signs, x-ray, x-ray interpretation, review of systems, comprehensive history and physical exam as well as setting up treatment plan and further management took 50 minutes. Cosigned by Sunday Bhakta DO at 02/14/2024 7:04 AM EDT documented in this encounter [facility] 12-22-2023 Evaluation + Plan note Future Scheduled TestsTSH With T4fr Reflex 12/22/23CBC w/ Auto Diff 12/22/23Comprehensive Metabolic Panel 12/22/23Lipid Panel 12/22/23 [facility] 11-24-2023 Hospital Discharge instructions Follow Up Care 11/24/2023 07:50:22 With:Efrain Munguia DO, [facility] Address: [address] [place] [address]- When:4 weeks Comments:Repeat OMT [facility] 10-27-2023 Hospital Discharge instructions Follow Up Care 10/27/2023 08:02:31 With:Efrain Munguia DO, [facility] Address: [address] [place] [address]- When:4 weeks Comments:Repeat OMT [facility] 10-10-2023 Hospital Discharge instructions Follow Up Care 10/10/2023 12:18:52 With:Efrain Munguia DO, [facility] Address: [address] [place] [address]- When:2 weeks Comments:2 WEEKS [facility] 01-19-2022 Evaluation note Encounter Date Diagnosis Assessment Notes Dec, Asthma (ICD-10 - J45.909) [place] [employer] Other Evaluation + Plan note No data available for this section [facility] Future Appointments Appointment Date:11/24/2023 07:00:00 AM Scheduled Provider:Efrain Munguia DO Location:[facility] Appointment Type:FM Procedure [facility] Evaluation + Plan note Future Appointments Appointment Date:12/22/2023 07:00:00 AM Scheduled Provider:Efrain Munguia DO Location:[facility] Appointment Type:FM Open [facility] Evaluation + Plan note Future Appointments Appointment Date:05/25/2024 07:30:00 AM Scheduled Provider: [facility] Appointment Type:Surgical PAT FT Appointment Date:06/11/2024 11:15:00 AM Scheduled Provider: Location[facility] Appointment Type:Surgery FT [facility] Evaluation + Plan note Future Appointments Appointment Date:06/11/2024 11:30:00 AM Scheduled Provider: Location[facility] Appointment Type:Surgery FT [facility] Evdbhwiydk note* Diagnosis Abnormal mammogram of right breast documented in [facility] encounter [facility] assessment information [facility] Work Phone: Evaluation noteNo InformationNort [employer] Other Evaluation note* Diagnosis Left hip pain- Primary Pain in joint, pelvic region and thigh [facility] Diagnosis Acute pain of left knee- Primary [facility]* Diagnosis Primary osteoarthritis of left hip- Primary [facility]* Diagnosis Primary osteoarthritis of left hip- Primary Aftercare following left hip joint replacement surgery Encounter for gynecological examination with abnormal finding Screening for cervical cancer Screening for malignant neoplasm of the cervix Screening mammogram for breast cancer Unsatisfactory cervical Papanicolaou smear documented in this encounter [facility]* Diagnosis Primary osteoarthritis of left hip- Primary Aftercare following left hip joint replacement surgery documented in this encounter [facility]* Diagnosis Primary osteoarthritis of left hip- Primary Aftercare following left hip joint replacement surgery documented in this encounter [facility]* Diagnosis Primary osteoarthritis of left hip- Primary Aftercare following left hip joint replacement surgery documented in this encounter [facility]* Diagnosis Primary osteoarthritis of left hip- Primary Aftercare following left hip joint replacement surgery documented in this encounter [facility]* Diagnosis Primary osteoarthritis of left hip- Primary Aftercare following left hip joint replacement surgery documented in this encounter [facility] HealthcareHistory general Narrative - Reported* Type Description Date Medical History asthma Surgical History cholecystectomy Surgical History Foot Surgery 2014 Hospitalization History as above [place] Other [facility] Discharge instructions No data available for this section [facility] No data available for this section [facility] Rehabilitation - Outpatient (Routine) - Closed Specialty Diagnoses / Procedures Referred By Jeannette latif Referred To Contact Physical Therapy Diagnoses Primary osteoarthritis of left hip Procedures CO OFFICE/OUTPATIENT NEW HIGH MDM 60 MINUTES Sunday Bhakta, [address] [place] [address] Phone: tel: fax: Jessica Gardner, PT [address] [place] [address] Phone: tel: fax: Referral ID Status Reason Start Date Expiration Date V isits Requested Visits Authorized [id number] Closed Consult and Treat 05/24/2024 11/20/2024 20 20 [facility] for visit Narrative* Rehabilitation - Outpatient (Routine) - Authorized Specialty Diagnoses / Procedures Referred By Jeannette latif Referred To Contact Physical Therapy Diagnoses Aftercare following left hip joint replacement surgery Procedures CO OFFICE/OUTPATIENT NEW HIGH MDM 60 MINUTES Sunday Bhakta, [address] [place] [address] Phone: tel: fax: [facility] [address] [place] [address] Phone: tel: fax: Referral ID Status Reason Start Date Expiration Date Visits Requested Visits Authorized [id number] Authorized Consult and Treat 06/08/2024 12/05/2024 10 10 [facility] N[facility]* Rehabilitation - Outpatient (Routine) - Authorized Specialty Diagnoses / Procedures Referred By Jeannette latif Referred To Contact Physical Therapy Diagnoses Aftercare following left hip joint replacement surgery Procedures CO OFFICE/OUTPATIENT NEW HIGH MDM 60 MINUTES Sunday Bhakta, DO [address] [place] [address] Phone: tel: fax: Ronna uV, PT [address] [place] [address] Phone: tel: fax: Referral ID Status Reason Start Date Expiration Date Visits Requested Visits Authorized [id number] Authorized Consult and Treat 06/25/2024 05/01/2025 30 30 [facility] Summary Purpose Family History No Family History Records Found Relationship Condition Age at Onset Recorded Date/T ping brother Malignant neoplasm Unknown mother Heart disease Unknown Advance Directives No Advanced Directives Records FoundDocuments on File Type Date Recorded 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 Advance Directives and Living Will Power of Glass Washer Advance Directive Response Recorded Date/ Time Advance Directives No February 01, 2020 3:16pm Advance Directive Response Recorded Date/ Time Advance Directives No February 01, 2020 4:16pm Chief Complaint and Reason for Visit Chief Complaint Z12.31 M85.851 M85.8 8 Z78.0 Chief Complaint z12.31 Chief Complaint Admit Date z13.820 z78.0 August 13, 2024 8:1 9am Additional Source Comments INFORMATION SOURCE (unrecogn ized section and content) DATE CREATED AUTHOR 02/23/2019 Dali Floyd spibeata DATE CREATED AUTHOR AUTHOR'S ORGANIZ ATION 01/08/2020 [facility] DATE CREATED AUTHOR AUTHOR'S ORGANIZ ATION 07/07/2021 [facility] dical Specialist DATE CREATED AUTHOR AUTHOR'S ORGANIZ ATION 02/11/2024 [facility] DATE CREATED AUTHOR AUTHOR'S ORGANIZ ATION 03/23/2024 [facility] DATE CREATED AUTHOR AUTHOR'S ORGANIZ ATION 06/12/2024 [facility] DATE CREATED AUTHOR AUTHOR'S ORGANIZ ATION 06/14/2024 [facility] DATE CREATED AUTHOR AUTHOR'S ORGANIZ ATION 07/17/2024 [facility] DATE CREATED AUTHOR AUTHOR'S ORGANIZ ATION 08/17/2024 [facility] DATE CREATED AUTHOR AUTHOR'S ORGANIZ ATION 08/30/2024 [facility] dical Specialists EPIC Reason for Visit (unrecogniz ed section and content) Status Reason Specialty Diagnoses / Procedures Referre d By Contact Referred To Contact Closed Radiology Diagnoses Abnormal mammogram of right breast Procedures RODOLFO DIGITAL DIAGNOSTIC W OR WO CAD RIGHT R[facility]OLFO DIAGNOSTIC W OR WO CAD RIGHT HC MAMMO DGX UNILATERAL INCL CAD IF PERF Wiliam Jones MD [address] [place] [address] Reason Comments Pain Care Teams (unrecognized sec tion and content) Team Status: Inactive Member Role Status Dates Ronn Marquez DO Primary Care Provider Active Derrick Kenny DO Attending Provider Active Team Status: Active Member Role Status Dates Ronn Marquez DO Primary Care Provider Active Team Status: Inactive Member Role Status Dates Ronn Marquez DO Primary Care Provider Active St art: November 18, 2023 End: November 18, 2023 Derrick Kenny DO Attending Provider Active Sta rt: November 18, 2023 End: November 18, 2023 Donor Recruiter Relationship Specialty Start Date End Date Ronn Marquez DO [address] [place] [address] PCP - ACO Reach 09/23/22 Efrain Munguia MD [address] [place] [address] PCP - General Family Medicine 02/10/24 Donor Recruiter Relationship Specialty Start Date End Date Ronn Marquez DO [address] [place] [address] PCP - ACO Reach 09/23/22 Efrain Munguia MD [address] [place] [address] PCP - General Family Medicine 02/10/24 Donor Recruiter Relationship Specialty Start Date End Date Ronn Marquez DO [address] [place] [address] PCP - ACO Reach 09/23/22 Efrain Munguia MD [address] [place] [address] PCP - General Family Medicine 02/10/24 Donor Recruiter Relationship Specialty Start Date End Date Ronn Marquez DO [address] [place] [address] PCP - ACO Reach 09/23/22 Efrain Munguia MD [address] [place] [address] PCP - General Family Medicine 02/10/24 Donor Recruiter Relationship Specialty Start Date End Date Ronn Marquez DO [address] [place] [address] PCP - ACO Reach 09/23/22 Efrain Munguia MD [address] [place] [address] PCP - General Family Medicine 02/10/24 Donor Recruiter Relationship Specialty Start Date End Date Efrain Munguia MD [address] [place] [address] PCP - General Family Medicine 02/10/24 Donor Recruiter Relationship Specialty Start Date End Date LinkEfrain MD [address] [place] [address] PCP - General Family Medicine 02/10/24 Ronn Marquez, DO [address] [place] [address] PCP - ACO Reach 06/15/24 Donor Recruiter Relationship Specialty Start Date End Date LinkEfrain MD [address] [place] [address] PCP - General Family Medicine 02/10/24 Ronn Marquez, DO [address] [place] [address] PCP - ACO Reach 06/15/24 Donor Recruiter Relationship Specialty Start Date End Date LinkEfrain MD [address] [facility] [place] [address] PCP - General Family Medicine 02/10/24 Ronn Marquez, DO [address] [place] [address] PCP - ACO Reach 06/15/24 Donor Recruiter Relationship Specialty Start Date End Date Efrain Munguia MD [address] [facility] [place] [address] PCP - General Family Medicine 02/10/24 Ronn Marquez, [address] [place] [address] PCP - ACO Reach 06/15/24 Donor Recruiter Relationship Specialty Start Date End Date Efrain Munguia MD [address] [place] [address] PCP - General Family Medicine 02/10/24 Ronn Marquez DO [address] [place] [address] PCP - ACO Reach 06/15/24 Donor Recruiter Relationship Specialty Start Date End Date Efrain Munguia MD [address] [facility] [place] [address] PCP - General Family Medicine 02/10/24 Ronn Marquez DO [address] [place] [address] PCP - ACO Reach 06/15/24 Donor Recruiter Relationship Specialty Start Date End Date Efrain Munguia MD [address] [facility] [place] [address] PCP - General Family Medicine 02/10/24 Donor Recruiter Relationship Specialty Start Date End Date Efrain Munguia MD [address] [facility] [place] [address] PCP - General Family Medicine 02/10/24 Donor Recruiter Relationship Specialty Start Date End Date Efrain Munguia MD [address] [facility] [place] [address] PCP - General Family Medicine 02/10/24 Donor Recruiter Relationship Specialty Start Date End Date Efrain Munguia MD [address] [facility] [place] [address] PCP - General Family Medicine 02/10/24 Team Status: Inactive Member Role Status Dates Ronn Marquez DO Primary Care Provider Active St art: August 13, 2024 End: August 13, 2024 Derrick Kenny DO Attending Provider Active Sta rt: August 13, 2024 End: August 13, 2024 Donor Recruiter Relationship Specialty Start Date End Date Efrain Munguia MD [address] [place] [address] PCP - General Family Medicine 02/10/24 Goals (unrecognized section and content) Goals may be documented in a n alternate section FOR RECORDS PERTAINING TO PATIENTS WHO ARE OR HAVE BEEN ENROLLED IN A CHEMICAL DEPENDENCY/SUBSTANCEABUSE PROGRAM, SOME INFORMATION MAY BE OMITTED. This clinical summary was aggregated from multiple sources. Caution should be exercised in using it in the provision of clinical care. This summary normalizes information from multiple sources, and as a consequence, information in this document may materially change the coding, format and clinical context of patient data. In addition, data may be omitted in some cases. CLINICAL DECISIONS SHOULD BE BASED ON THE PRIMARY CLINICAL RECORDS. [employer] provides no warranty or guarantee of the accuracy or completeness of information in this document.
--- NOTE | 2024-10-05 07:51 | XR_ITS ---
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 There is hardware fixation of the calcaneus, subtalar joint, and talonavicular joint. No hardware complication or change in alignment. 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 Impression dictated by: Jake Gallo M.D. 10/05/2024 8:12 AM Dictation Location: [place] [address] Electronically authenticated by: [id number] Y Date: 10/05/2024 08:12
== END 2024-10-05 07:45 | disposition home or self-care (01) ==
LOC: RAD 07:47
PROVIDERS: PCP Family Medicine; Visit Provider Podiatrist Foot & Ankle Surgery
DX: M25.571 Pain in right ankle and joints of right foot (principal); Z98.890 Other specified postprocedural states
CPT/HCPCS: 73610